=== PATIENT | female | born 1955 | race Caucasian/White ===

== ENCOUNTER 2017-10-06 20:15 | Emergency (ER) | payer MEDICARE, SELFPAY ==
--- NOTE | 2017-10-06 12:32 | EKG12_ITS ---
Test Reason : SYNCOPE Blood Pressure : / mmHG Vent. Rate : 064 BPM Atrial Rate : 064 BPM P-R Int : 170 ms QRS Dur : 080 ms QT Int : 440 ms P-R-T Axes : 053 014 019 degrees QTc Int : 453 ms Normal sinus rhythm Normal ECG Confirmed by LOLA PADRON MD ([id number]), publishing editor ARNALDO HUITRON ([id number]) on 10/11/2017 5:36:17 PM Referred By: CARIN/ALIE Confirmed By:LOLA PADRON MD
--- NOTE | 2017-10-06 20:15 | DT_ITS ---
This patient was seen during an EMR downtime October 02, 2017 - October 09, 2017. This patient may have a combination of paper and electronic documentation or all paper documentation. All documentation is viewable within the e-chart portion of [facility] for each patient visit.
--- NOTE | 2017-10-06 20:57 | RAD_ITS ---
STUDY: X-RAY CHEST REASON FOR EXAM: Female, 62 years old. SYCOPE EPISODE WITH FALL, LOW BACK PAIN TECHNIQUE: Single AP portable view of the chest. COMPARISON: None. FINDINGS: The lungs are clear and expanded. There is no demonstrated pleural abnormality. Normal size heart. Normal mediastinum and maggie. Normal visualized pulmonary arteries. Normal visualized aortic arch and descending thoracic aorta. Normal visualized thoracic spine. Normal visualized ribs, clavicles, and shoulders. There is no demonstrated abnormality of the visualized soft tissue structures of the upper abdomen. RAD/Chest 1 View (Portable) IMPRESSION: Normal x-ray examination of the chest. Electronically Signed: Bernardo Soliz MD at 21:24 EDT , Service support ,
[2017-10-10 01:52] LABS: Amphetamine Urine VISTA NEGATIVE (<1000 ng/mL); Vista UDS pH Range 6
[2017-10-10 01:53] LABS: Barbiturate Urine VISTA NEGATIVE (< 200 ng/mL); Benzodiazepine Urine VISTA POSITIVE (< 200 ng/mL); Cocaine Urine VISTA NEGATIVE (< 300 ng/mL); Ecstacy Urine VISTA NEGATIVE (< 500 ng/mL); Methadone Urine VISTA NEGATIVE (< 300 ng/mL); PCP Urine VISTA NEGATIVE (< 25 ng/mL); THC Urine VISTA POSITIVE (< 50 ng/mL)
[2017-10-10 02:20] LABS: Lactic Acid 1.2 mmol/L (0.4-2.0)
[2017-10-10 02:30] LABS: ALB/GLOB Ratio 1.3 RATIO (0.9-2.4); Albumin, Serum 3.7 g/dL (3.2-5.0); BUN 16 mg/dL (7-18); BUN/Creat Ratio 12.6 RATIO (10-20); Creatinine, Serum 1.27 mg/dL (0.55-1.02); EST Glomerular Filtration Rate 45 mL/min (>60); Est Glom Filt Rate - Afr Amer 55 mL/min (>60); Globulin 2.9 g/dL (2.2-4.2); Glucose 98 mg/dL (74-106); Protein, Total 6.6 g/dL (6.4-8.2)
[2017-10-10 02:31] LABS: AST(SGOT) 18 U/L (15-37); Alanine Aminotransfer ALT/SGPT 15 U/L (13-56); Alkaline Phosphatase 60 U/L (45-117); Anion Gap 6 (5-15); Calcium,Total 8.6 mg/dL (8.5-10.1); Chloride 106 mmol/L (98-107); Lipase 141 U/L (73-393); Potassium 4.9 mmol/L (3.5-5.1); Sodium Level 139 mmol/L (136-145)
[2017-10-10 04:19] LABS: Partial Thromboplast Time 25.8 Seconds (24.1-36.2); Prothrombin Time (Protime)PT. 13.1 SECONDS (11.7-14.9)
[2017-10-10 04:20] LABS: Eosinophils% 3.5 % (0-5); Hematocrit 44.4 % (37-47); Hemoglobin 14.2 g/dl (12.0-15.0); Lymphocyte % 27.7 % (19-41); Mean Corpuscular Hgb 27.6 pg (27.0-32.0); Mean Corpuscular Volume 86.4 fL (81-99); Mean Platelet Vol. 10.7 fl (6.2-12.0); Monocyte% 5.1 % (0-10); Neutrophil % 62.2 % (47-70); POSITIVE COUNT NO; POSITIVE DIFFERENTIAL NO; POSITIVE MORPHOLOGY NO; Platelet Count 204 K/mm3 (150-450); RBC Distribution Width CV 14.9 % (11.6-14.6); RBC Distribution Width SD 47.2 fl (35.1-43.9); Red Blood Count 5.14 M/mm3 (4.2-5.4); White Blood Count 6.9 K/mm3 (4.4-11.0)
[2017-10-10 04:21] LABS: Absolute Lymphocyte Count 1.92 X10^3/ul (0.83-4.51); Absolute Neutrophil Count 4.3 X10^3/uL (2.0-7.7); Basophil% 1.4 % (0-1); Eosinophil# 0.24 X10^3/uL; Lymphocyte # 1.92 X10^3/ul (4.0); Monocyte# 0.35 X10^3/uL; Neutrophil # 4.31 X10^3/uL (2.7-7.7)
== END 2017-10-07 00:20 | disposition home or self-care (01) ==
LOC: ED 10-07 13:23
PROVIDERS: Emergency Provider Emergency Medicine; Family Provider Student in an Organized Health Care Education/Training Program; PCP Student in an Organized Health Care Education/Training Program
DX: R55 Syncope and collapse (principal); M79.7 Fibromyalgia; F32.9 Major depressive disorder, single episode, unspecified; Z79.899 Other long term (current) drug therapy; Z72.0 Tobacco use
CPT/HCPCS: 36415; 71045; 80053; 80307; 80320; 83605; 83690; 84484; 85025; 85610; 85730; 93005; 96360; 96361; 99284; J7030; A4216; G0480

== ENCOUNTER 2018-03-05 17:46 | Emergency (ER) | payer MEDICARE, SELFPAY ==
[2018-03-05 17:47] VITALS: BP 123/86; PULSE 92; RESP 18; TEMP 36.4; O2SAT 96; BMI 31.6
--- NOTE | 2018-03-05 19:08 | US_ITS ---
STUDY: ABDOMINAL ULTRASOUND - RIGHT UPPER QUADRANT REASON FOR VISIT: Female, 63 years old. Right side abdominal pain. TECHNIQUE: Ultrasound evaluation of the right upper quadrant was performed with real-time and static rojas-scale imaging. TECHNICAL QUALITY: Adequate. COMPARISON: None. FINDINGS: Liver: The liver measures 17.3 cm. There is normal echogenicity of the liver. The bile ducts are within normal limits. There is hepatic color flow. The direction of portal flow is hepatopetal. There is no demonstrated mass lesion. Gallbladder: Normal distended gallbladder. The gallbladder wall measures 2 mm. There is a negative sonographic Abdi's sign. There is no pericholecystic fluid. There are no gallstones. Common Bile Duct (C.B.D.): The common bile duct measures 7 mm. Pancreas: There is mild dilation of the pancreatic duct, measuring 4 mm. The visualized pancreas is otherwise unremarkable. The tail is poorly seen. Right Kidney: Normal size of the right kidney. The right kidney measures 11.6 x 3.4 x 3.9 cm. Normal renal cortex. The right cortex measures 1.1 cm. There is no demonstrated renal mass or cyst. There is no right hydronephrosis. US/Gallbladder IMPRESSION: 1. No cholelithiasis or acute cholecystitis. 2. Minimally dilated pancreatic and distal common duct. Electronically Signed: Fay Hutchinson MD at 20:16 EST Tel , Service support ,
[2018-03-05 19:20] LABS: Absolute Lymphocyte Count 2.62 X10^3/ul (0.83-4.51); Absolute Neutrophil Count 2.8 X10^3/uL (2.0-7.7); Basophil# 0.06 X10^3/uL; Eosinophil# 0.18 X10^3/uL; Hematocrit 44.7 % (37-47); Hemoglobin 14.2 g/dl (12.0-15.0); Lymphocyte # 2.62 X10^3/ul (4.0); Lymphocyte % 44.2 % (19-41); Mean Corp Hgb Conc 31.8 g/gl (32-36); Mean Corpuscular Hgb 27.8 pg (27.0-32.0); Mean Corpuscular Volume 87.6 fL (81-99); Mean Platelet Vol. 10.1 fl (6.2-12.0); Monocyte# 0.28 X10^3/uL; Monocyte% 4.7 % (0-10); Neutrophil # 2.78 X10^3/uL (2.7-7.7); Neutrophil % 46.9 % (47-70); Platelet Count 267 K/mm3 (150-450); RBC Distribution Width CV 14.1 % (11.6-14.6); RBC Distribution Width SD 45.2 fl (35.1-43.9); White Blood Count 5.9 K/mm3 (4.4-11.0)
[2018-03-05] MEDS: Ondansetron 4 MG/2 ML Vial IV (19:20)
[2018-03-05] MEDS: Morphine 4 MG/ML Syringe IV (19:20)
[2018-03-05] MEDS: 0.9% Normal Saline 1,000 ML 150 ML IV (19:20)
[2018-03-05 19:21] LABS: POSITIVE COUNT NO; POSITIVE DIFFERENTIAL NO; POSITIVE MORPHOLOGY NO
[2018-03-05 19:50] LABS: AST(SGOT) 20 U/L (15-37); Alanine Aminotransfer ALT/SGPT 20 U/L (13-56); Albumin, Serum 3.8 g/dL (3.2-5.0); Alkaline Phosphatase 63 U/L (45-117); Anion Gap 9 (5-15); BUN 20 mg/dL (7-18); BUN/Creat Ratio 19.4 RATIO (10-20); Bilirubin, Direct 0.12 mg/dL (0.00-0.30); Calcium,Total 8.9 mg/dL (8.5-10.1); Chloride 107 mmol/L (98-107); Creatinine, Serum 1.03 mg/dL (0.55-1.02); EST Glomerular Filtration Rate 58 mL/min (>60); Est Glom Filt Rate - Afr Amer 70 mL/min (>60); Estimated Creatinine Clearance 50.96 ml/min; Globulin 3.6 g/dL (2.2-4.2); Glucose 76 mg/dL (74-106); Lipase 173 U/L (73-393); Potassium 4.4 mmol/L (3.5-5.1); Protein, Total 7.4 g/dL (6.4-8.2); Sodium Level 141 mmol/L (136-145)
[2018-03-05 19:57] VITALS: BP 133/85; PULSE 59; RESP 18; O2SAT 97
--- NOTE | 2018-03-05 21:14 | ED.DCSUM_ITS ---
- ER Visit Summary Date of Service: 03/05/18 Chief Complaint: Abdominal pain History of Present Illness: The patient is a 63 F with a 6-month history of abdominal pain after meals. She does report nausea with intermittent fevers. She is a history of high cholesterol, anxiety, depression, back pain, seizures. Prior surgical history includes appendectomy and hysterectomy. Patient has not seen her family physician about the current complaint. Physical Examination: Vital signs unremarkable. Patient sitting upright in bed no acute distress. She does appear uncomfortable. Head neck examination is unremarkable. Heart is regular rate and rhythm. Lung sounds are clear. Abdomen is soft with tenderness in the right upper quadrant. There is no guarding or rebound. Hypoactive bowel sounds are noted throughout. Test Results: CBC and chemistry studies are unremarkable. LFTs and lipase normal. Right upper quadrant ultrasound shows no cholelithiasis or acute cholecystitis. There is minimally dilated pancreatic and distal common ducts. Emergency Department Course and Treatment: Patient was given morphine, Zofran, and IV fluids. On repeat evaluation she is resting comfortably. Test results are discussed with her. I did advise that although I do not see signs of gallstones, she may still have problems with the function of her gallbladder may require a HIDA scan for further workup. Patient will be referred to Dr. Macedo for follow-up. Treatment Plan: [] Disposition: Discharge Impression: Right upper quadrant abdominal pain This note was generated with [employer] dictation software. It may contain incorrect words, spelling, and punctuation that were not noted in review of the chart prior to signing ED Disposition - Plan for ED Patient: Disposition: Home or Assisted Living Chief Complaint: Abd Pain Instructions: ED Abdominal Pain Unkn Cause Referrals: Juan Lr DO [Primary Care Provider] - Faye Macedo MD [STAFF PHYSICIAN] - As soon as possible
[2018-03-05 21:27] VITALS: BP 111/85; PULSE 62; RESP 16; O2SAT 95
== END 2018-03-05 21:28 | disposition home or self-care (01) ==
PROVIDERS: Emergency Provider Emergency Medicine; Family Provider Student in an Organized Health Care Education/Training Program; PCP Student in an Organized Health Care Education/Training Program
DX: R10.11 Right upper quadrant pain (principal); R11.0 Nausea; R50.9 Fever, unspecified; K86.89 Other specified diseases of pancreas; K83.8 Other specified diseases of biliary tract; E78.00 Pure hypercholesterolemia, unspecified; F41.9 Anxiety disorder, unspecified; F32.9 Major depressive disorder, single episode, unspecified; M54.9 Dorsalgia, unspecified; G40.909 Epilepsy, unspecified, not intractable, without status epilepticus; Z79.899 Other long term (current) drug therapy; Z72.0 Tobacco use
CPT/HCPCS: 76705; 80048; 80076; 83690; 85025; 96361; 96374; 96375; 99283; J7030; J2405

== ENCOUNTER 2020-07-09 17:43 | Outpatient (RCR) | payer MEDICARE, SELFPAY ==
[2020-07-09] MEDS: COVID-19 VACC, MRNA(PFIZER)/PF 30 MCG/0.3 ML SYRINGE IM (16:17)
[2020-07-30] MEDS: COVID-19 VACC, MRNA(PFIZER)/PF 30 MCG/0.3 ML SYRINGE IM (16:01)
== END 2020-10-06 23:59 ==
LOC: IMMUN 17:43
PROVIDERS: PCP Student in an Organized Health Care Education/Training Program; Visit Provider Family Medicine
DX: Z23 Encounter for immunization (principal)
CPT/HCPCS: 0001A; 0002A; 91300

== ENCOUNTER 2021-01-26 23:48 | Emergency (ER) | payer MEDICARE, SELFPAY ==
[2021-01-26 23:49] VITALS: BP 158/92; PULSE 86; RESP 16; TEMP 37.3; O2SAT 96; BMI 32.3
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
[2021-01-27 01:10] VITALS: BP 148/89; PULSE 76; RESP 12; O2SAT 98
== END 2021-01-27 01:11 | disposition home or self-care (01) ==
PROVIDERS: Emergency Provider Emergency Medicine; PCP Student in an Organized Health Care Education/Training Program
DX: S62.231A Other displaced fracture of base of first metacarpal bone, right hand, initial encounter for closed fracture (principal); S60.511A Abrasion of right hand, initial encounter; S80.211A Abrasion, right knee, initial encounter; S80.212A Abrasion, left knee, initial encounter; W22.09XA Striking against other stationary object, initial encounter; Y93.9 Activity, unspecified; Y92.9 Unspecified place or not applicable; I10 Essential (primary) hypertension; G89.29 Other chronic pain; M79.7 Fibromyalgia; M19.90 Unspecified osteoarthritis, unspecified site; Z79.899 Other long term (current) drug therapy; F17.210 Nicotine dependence, cigarettes, uncomplicated
CPT/HCPCS: 29125; 73130; 99283

== ENCOUNTER 2024-08-23 10:10 | Inpatient (IN) | payer MEDICARE, SELFPAY ==
[2024-08-23] VITALS (9 sets, daily range): BP systolic 90–95; BP diastolic 60–65; PULSE 59–91; RESP 12–18; TEMP 36.3–37.1; O2SAT 93–99; BMI 32.3; BMI 31.6
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
[2024-08-23] MEDS: Ondansetron 4 MG/2 ML Vial IV (10:36)
[2024-08-23] MEDS: Morphine 4 MG/ML Syringe IV (10:36)
[2024-08-23] MEDS: 0.9% Normal Saline (1000mL) 1,000 ML 999 ML IV (10:36)
[2024-08-23 10:37] LABS: Absolute Lymphocyte Count 2.06 X10^3/uL (0.83-4.51); Absolute Neutrophil Count 6.4 X10^3/uL (2.0-7.7); Basophil# 0.09 X10^3/uL; Eosinophils% 2.1 % (0-5); Hematocrit 39.9 % (37-47); Hemoglobin 12.4 g/dL (12.0-15.0); Lymphocyte # 2.06 X10^3/ul (0.83-4.51); Lymphocyte % 22.1 % (19-41); Mean Corp Hgb Conc 31.1 g/dL (32-36); Mean Corpuscular Hgb 27.8 pg (27.0-32.0); Mean Corpuscular Volume 89.5 fL (81-99); Mean Platelet Vol. 9.7 fl (6.2-12.0); Monocyte# 0.53 X10^3/uL; Monocyte% 5.7 % (0-10); NRBC Flagged by Analyzer 0 % (0-5); Neutrophil # 6.41 X10^3/uL (2.7-7.7); Neutrophil % 68.6 % (47-70); Platelet Count 287 K/mm3 (150-450); RBC Distribution Width CV 14.5 % (11.6-14.6); RBC Distribution Width SD 47.1 fl (35.1-43.9); Red Blood Count 4.46 M/mm3 (4.2-5.4); White Blood Count 9.3 K/mm3 (4.4-11.0)
--- NOTE | 2024-08-23 10:45 | RAD_ITS ---
PROCEDURE: HIP, UNI W/ PELVIS 2-3 VIEWS 08/23/2024 REASON FOR EXAM: FALL, PAIN TECHNIQUE: Three (3) view of the right hip COMPARISON: No relevant prior FINDINGS: Bones: No fractures or other osseous abnormalities. Joints: No subluxations or dislocations. Soft tissues: Unremarkable. RAD/HIP, UNI W/ Pelvis 2-3 Views IMPRESSION: No acute osseous abnormalities. Reading Location: [facility]
--- NOTE | 2024-08-23 10:45 | RAD_ITS ---
PROCEDURE: KNEE 1 OR 2 VIEWS 08/23/2024 REASON FOR EXAM: FALL, PAIN TECHNIQUE: Two (2) view(s) of the right knee COMPARISON: No relevant prior FINDINGS: Bones: An acute spiral fracture of the distal femoral diaphysis with lateral displacement of the distal fracture fragment by approximately 3.6 cm. Joints: No subluxations or dislocations. Soft tissues: Swelling. RAD/Knee 1 or 2 Views IMPRESSION: Acute spiral fracture of the distal femoral diaphysis with offset of the fractu re fragments detailed above. Reading Location: [facility]
[2024-08-23 10:58] LABS: AST(SGOT) 30 U/L (<=31); Alanine Aminotransfer ALT/SGPT 27 U/L (<=34); Albumin, Serum 3.7 g/dL (3.4-4.8); Alkaline Phosphatase 73 U/L (35-104); Anion Gap 9 (5-15); BUN 26 mg/dL (4-19); BUN/Creat Ratio 21.7 RATIO (10-20); Bilirubin, Direct < 0.08 mg/dL (0.00-0.30); Carbon Dioxide 19.8 mmol/L (21.0-32.0); Chloride 113 mmol/L (98-108); Creatinine, Serum 1.18 mg/dL (0.70-1.20); EST Glomerular Filtration Rate 50 (>60); Estimated Creatinine Clearance 50.08 ml/min (50-250); Globulin 2.7 g/dL (2.2-4.2); Glucose 121 mg/dL (70-99); Potassium 4.9 mmol/L (3.3-5.1); Protein, Total 6.4 g/dL (5.9-8.4); Sodium Level 141 mmol/L (133-145); Total Bilirubin < 0.15 mg/dL (0.00-1.30)
[2024-08-23] MEDS: HYDROmorphone 0.5 MG/0.5 ML SYRINGE IV (11:53)
[2024-08-23] MEDS: oxyCODONE 5 MG Tablet 10 MG PO ×2 (15:52→21:33)
[2024-08-23] MEDS: cycloBENZAPRine HCl 10 MG Tablet PO ×2 (15:52→22:54)
--- NOTE | 2024-08-23 18:11 | HP.PCM.HOS_ITS ---
HPI - General General Date of Admission: 08/23/24 Date of Service: 08/23/24 Chief Complaint: Right knee pain HPI Narrative ALAN CM, is a 69 F who presents to the emergency room at [facility] for evaluation of right knee pain and right hip pain following a fall at home in her kitchen. Patient states she was mopping the floor in her kitchen and slipped and fell, she is not sure how she landed on the floor but was unable to get up and bear weight. She cried out for help but her son who was in an adjacent area did not hear her and she finally was able to crawl to a telephone to call for help. Workup in the emergency room included an x-ray of the right knee and hip, there was no acute pathology noted in the right hip but there was a spiral fracture of the distal right femur noted that was displaced. Labs included CBC which was unremarkable, chemistry panel was remarkable for BUN of 26. Patient's chronic medical problems include hypertension, chronic depression, hypothyroidism, hyperlipidemia, and fibromyalgia. Patient will be admitted to [place] [address], no medications will be continued, she will be seen in consultation by orthopedic surgery, I will obtain a portable chest x-ray due to the fact the patient is a smoker. [facility] Medical History Hypertension Arthritis Chronic low back pain Fibromyalgia Home Medications ?Medication ?Instructions ?Recorded ?Last Taken ?Type lorazepam 1 mg tablet 1 mg PO Q8H PRN Anxiety 11/0 5/18 08/22/24 History albuterol sulfate 90 mcg/actuation 2 puff inhalation Q 4H PRN wheezing 08/23/24 08/22/24 History aerosol inhaler cyclobenzaprine 10 mg tablet 10 mg PO TID PRN muscle s pasm 08/23/24 08/22/24 History duloxetine 20 mg capsule,delayed 20 mg PO DAILY 08/23/24 History release levothyroxine 88 mcg tablet 88 mcg PO DAILY 08/23/24 0 08/22/24 History metoprolol tartrate 50 mg tablet 50 mg PO BID 08/23/24 08/23/24 History Allergy/AdvReac Type Severity Reaction Status Date / Time pregabalin (From Lyrica) Allergy SUICIDAL Verified 08/23/24 10:11 pentazocine lactate (From AdvReac Vomiting Verified 08/23/24 10:11 Celso) Social History Smoking Status: Current every day smoker tobacco type: cigarettes ROS Constitutional Constitutional: Denies anorexia, change in weight, fever(s), night sweats or weakness Eyes Eyes: Denies blurry vision, change in vision, discharge from eye(s) or eye pain Cardiovascular Cardiovascular: Denies chest pain, claudication, edema or palpitations Respiratory/Chest Respiratory/Chest: Denies cough, hemoptysis, shortness of breath at rest or shortness of breath with exertion Gastrointestinal Gastrointestinal: Denies abdominal pain, constipation, diarrhea, hematemesis, hematochezia, melena, nausea or vomiting Genitourinary Genitourinary: Denies dysuria, hematuria, urinary frequency, urinary hesitancy, urinary incontinence or urinary urgency Musculoskeletal Musculoskeletal: Denies back pain, joint pain, joint stiffness, joint swelling, myalgias or neck pain Neurologic Neurologic: Denies abnormal gait, abnormal speech, dizziness, focal weakness, headache(s), loss of vision, numbness, other visual disturbances, paresthesias, syncope or tingling Psychiatric Psychiatric: Denies anxiety, cognitive impairment, depression, irritability, mood swings or suicidal ideation Endocrine Endocrinology: Denies change in body appearance, cold intolerance, excessive sweating, heat intolerance, polydipsia or polyuria Hematologic/Lymphatic Hematologic/Lymphatic: Denies none, anemia, easy bleeding, easy bruising or lymphadenopathy Allergic/Immunologic Allergic/Immunologic: Denies rhinitis, urticaria, eczemia or asthma Vital Signs Vital Signs Vital Signs: 08/23/24 10:12 08/23/24 11:10 08/23/24 12:00 Temperature 97.6 F L Temperature Source Oral Pulse Rate 64 63 59 L Respiratory Rate 18 12 16 Blood Pressure 95/60 93/62 90/62 Blood Pressure Mean 71 72 71 Blood Pressure Source Blood Pressure Position Blood Pressure Location Pulse Ox 94 99 Oxygen Delivery Method Room Air 08/23/24 12:03 08/23/24 12:46 08/23/24 12:56 Temperature 98 F 98.7 F Temperature Source Temporal Pulse Rate 68 69 Respiratory Rate 13 18 18 Blood Pressure 94/61 91/65 Blood Pressure Mean 72 73 Blood Pressure Source Monitor Blood Pressure Position Semi-Fowlers Blood Pressure Location Right Arm Pulse Ox 93 98 Oxygen Delivery Method Room Air Room Air Weight Weight: 86.2 kg Body Mass Index (BMI) 31.6 Physical Exam Const alert, oriented x3 and no apparent distress General Appearance: cooperative, well kempt and well developed Orientation / Consciousness: awake, oriented to person, oriented to place and oriented to time HEENT normocephalic, head/scalp atraumatic, hearing grossly normal bilaterally and moist oral mucous membranes Eyes PERRL, EOMs intact bilaterally and conjunctivae normal Neck supple, no JVD, thyroid normal and no carotid bruits General: trachea midline Resp normal respiratory effort, no retractions, no use of accessory muscles and clear to auscultation bilaterally Auscultation: Negative for rales, rhonchi or wheezes Cardio regular rate, regular rhythm, S1 normal heart sound, S2 normal heart sound, no murmurs, no rub and no gallops GI normal to inspection, nondistended, normoactive bowel sounds, soft to palpation, non-tender and non-distended Extremity Extremity Narrative: Right leg was not examined during the time of this examination Skin no rashes or lesions noted General Skin Exam: no breakdown Neuro oriented x3, CN's II-XII intact bilaterally, no focal motor deficits and no sensory deficits noted Sensorium / Orientation: awake and alert Speech: speech normal Psych affect normal Results Lab / Micro Data 08/23/24 10:27 08/23/24 10:27 Labs: Laboratory Results - last 24 hr 08/23/24 10:27: WBC 9.3, RBC 4.46, Hgb 12.4, Hct 39.9, MCV 89.5, MCH 27.8, MCHC 31.1 L, RDW Std Deviation 47.1 H, RDW Coeff of Promise 14.5, Plt Count 287, MPV 9.7, Immature Gran % (Auto) 0.500, Neut % (Auto) 68.6, Lymph % (Auto) 22.1, [place] % (Auto) 5.7, Eos % (Auto) 2.1, Baso % (Auto) 1.0, Absolute Neuts (auto) 6.4, Absolute Lymphs (auto) 2.06, Nucleated RBC % 0, Sodium 141, Potassium 4.9, C hloride 113 H, Carbon Dioxide 19.8 L, Anion Gap 9, BUN 26 H, Creatinine 1.18, Estim Creat Clear Calc 50.08, Est GFR (MDRD) Non-Af 50 L, BUN/Creatinine Ratio 21.7 H, Glucose 121 H, Calcium 9.0, Total Bilirubin < 0.15, Direct Bilirubin < 0.08, AST 30, ALT 27, Alkaline Phosphatase 73, Total Protein 6.4, Albumin 3.7, Globulin 2.7 Imaging Radiology Impression Hip/Pelvis X-Ray 08/23/24 10:45 IMPRESSION: No acute osseous abnormalities. Reading Location: [facility] Knee X-Ray 08/23/24 10:45 IMPRESSION: Acute spiral fracture of the distal femoral diaphysis with offset of the fracture fragments detailed above. Reading Location: [facility] Assessment & Plan Assessment/Plan (1) Femur fracture, right: PLAN: Plan 1. Distal spiral right femoral [id number] to osteoporosis patient will be admitted to [facility], she will be seen by orthopedic surgery, she will need ORIF tomorrow #2 essential hypertension-patient is on metoprolol, blood pressure will be monitored #3 chronic depression-patient is on Cymbalta #4 hypothyroidism-patient is on Synthroid #5 chronic anxiety-patient is on Ativan Patient appears to be medically stable at this time, again I will obtain an EKG and a chest x-ray Total clinical time spent by myself addressing the patient's medical issues, reviewing all of her data, and collaborating with patient's care team: 75 minutes Charges/Coding Visit Charges Inpatient E&M: 69515 Init Hosp L3
[2024-08-23] MEDS: Gabapentin 300 MG Capsule 600 MG PO (18:18)
--- NOTE | 2024-08-23 18:40 | RAD_ITS ---
EXAM: XR Chest, 1 View CLINICAL INDICATION: PREOP CHEST X-RAY TECHNIQUE: Frontal view of the chest. COMPARISON: No relevant prior studies available. FINDINGS: LUNGS AND PLEURAL SPACES: Unremarkable. No consolidation. No pneumothorax. HEART: Unremarkable. No cardiomegaly. MEDIASTINUM: Unremarkable. Normal mediastinal contour. BONES/JOINTS: Unremarkable. No acute fracture. RAD/Chest 1 View (Portable) IMPRESSION: No acute cardiopulmonary process. Reading Location: [id number]
[2024-08-23] MEDS: Ipratropium/Albuterol Sulfate 3 ML AMPUL.NEB INHALATION (20:25)
[2024-08-23] MEDS: LORazepam 1 MG Tablet PO (21:33)
[2024-08-24] VITALS (15 sets, daily range): BP systolic 95–149; BP diastolic 58–118; PULSE 82–107; RESP 14–16; TEMP 36.4–37.3; O2SAT 90–100; BMI 31.6
[2024-08-24] MEDS: oxyCODONE 5 MG Tablet 10 MG PO ×3 (03:50→22:13)
[2024-08-24] MEDS: Ondansetron 4 MG/2 ML Vial IV (03:50)
[2024-08-24] MEDS: 0.9% Saline Lock 10 ML Syringe IV (03:50)
[2024-08-24 04:24] LABS: Absolute Lymphocyte Count 1.99 X10^3/uL (0.83-4.51); Absolute Neutrophil Count 5.9 X10^3/uL (2.0-7.7); Basophil# 0.04 X10^3/uL; Basophil% 0.5 % (0-1); Eosinophil# 0.14 X10^3/uL; Eosinophils% 1.6 % (0-5); Hematocrit 32.6 % (37-47); Hemoglobin 10.3 g/dL (12.0-15.0); Lymphocyte # 1.99 X10^3/ul (0.83-4.51); Lymphocyte % 22.7 % (19-41); Mean Corp Hgb Conc 31.6 g/dL (32-36); Mean Corpuscular Hgb 28.1 pg (27.0-32.0); Mean Corpuscular Volume 88.8 fL (81-99); Mean Platelet Vol. 9.7 fl (6.2-12.0); Monocyte# 0.73 X10^3/uL; Monocyte% 8.3 % (0-10); NRBC Flagged by Analyzer 0 % (0-5); Neutrophil # 5.85 X10^3/uL (2.7-7.7); Neutrophil % 66.6 % (47-70); Platelet Count 238 K/mm3 (150-450); RBC Distribution Width CV 14.6 % (11.6-14.6); Red Blood Count 3.67 M/mm3 (4.2-5.4); White Blood Count 8.8 K/mm3 (4.4-11.0)
[2024-08-24 04:50] LABS: Partial Thromboplast Time 22.5 Seconds (24.1-36.2)
[2024-08-24 05:32] LABS: ALB/GLOB Ratio 1.4 RATIO (0.9-2.4); AST(SGOT) 94 U/L (<=31); Alanine Aminotransfer ALT/SGPT 93 U/L (<=34); Albumin, Serum 3.4 g/dL (3.4-4.8); Alkaline Phosphatase 75 U/L (35-104); Anion Gap 9 (5-15); BUN 22 mg/dL (4-19); BUN/Creat Ratio 20.2 RATIO (10-20); Calcium,Total 8.4 mg/dL (7.6-11.0); Chloride 108 mmol/L (98-108); EST Glomerular Filtration Rate 55 (>60); Estimated Creatinine Clearance 53.07 ml/min (50-250); Globulin 2.4 g/dL (2.2-4.2); Glucose 98 mg/dL (70-99); Potassium 4.2 mmol/L (3.3-5.1); Protein, Total 5.7 g/dL (5.9-8.4); Sodium Level 136 mmol/L (133-145)
--- NOTE | 2024-08-24 06:56 | CON.PCM.OR_ITS ---
HPI Consult Data Date of Consult: 08/24/24 HPI Narrative Reason for Consultation: Right thigh pain HPI Narrative: ALAN CM, is a 69 F smoker who presents with right thigh pain. Patient with mopping her kitchen when she went to step out of her kitchen which is on the 1 step different level in the house she suddenly fell. She denies any dizziness or lightheadedness prior to the fall, with injury in a mechanical fall/slip and fall. The patient had severe 10 out of 10 pain. Her son was able to help her call the ambulance and they brought her to the emergency department she was found to have a distal femoral shaft fracture on radiographs. Patient reports that pain is located in her thigh. Worse with motion better with immobilization and pain medication. No numbness or tingling distally. Denies history of significant hip or knee pain. Does live at home by herself. Does not use cane or walker on a consistent basis. [facility] Medical History Anxiety and depression Osteoporosis Smoker Bone spur of foot Hypertension Arthritis Chronic low back pain Fibromyalgia Home Medications ?Medication ?Instructions ?Recorded ?Last Taken ?Type lorazepam 1 mg tablet 1 mg PO Q8H PRN Anxiety 11/0 5/18 08/22/24 History albuterol sulfate 90 mcg/actuation 2 puff inhalation Q 4H PRN wheezing 08/23/24 08/22/24 History aerosol inhaler cyclobenzaprine 10 mg tablet 10 mg PO TID PRN muscle s pasm 08/23/24 08/22/24 History duloxetine 20 mg capsule,delayed 20 mg PO DAILY 08/23/24 History release levothyroxine 88 mcg tablet 88 mcg PO DAILY 08/23/24 0 08/22/24 History metoprolol tartrate 50 mg tablet 50 mg PO BID 08/23/24 08/23/24 History Allergy/AdvReac Type Severity Reaction Status Date / Time pregabalin (From Lyrica) Allergy SUICIDAL Verified 08/23/24 10:11 pentazocine lactate (From AdvReac Vomiting Verified 08/23/24 10:11 Celso) no significant family history Surgical History History of carpal tunnel repair History of hysterectomy Social History Smoking Status: Current every day smoker tobacco type: cigarettes ROS Constitutional Constitutional: Reports systems reviewed and no addt'l complaints, except as documented Eyes Eyes: Reports systems reviewed and no addt'l complaints, except as documented ENT HEENT: Reports systems reviewed and no addt'l complaints, except as documented Cardiovascular Cardiovascular: Reports systems reviewed and no addt'l complaints, except as documented Respiratory/Chest Respiratory/Chest: Reports systems reviewed and no addt'l complaints, except as documented Gastrointestinal Gastrointestinal: Reports systems reviewed and no addt'l complaints, except as documented Genitourinary Genitourinary: Reports systems reviewed and no addt'l complaints, except as documented Musculoskeletal Musculoskeletal: Reports systems reviewed and no addt'l complaints, except as documented Integumentary Integumentary: Reports systems reviewed and no addt'l complaints, except as documented Neurologic Neurologic: Reports systems reviewed and no addt'l complaints, except as documented Psychiatric Psychiatric: Reports systems reviewed and no addt'l complaints, except as documented Vital Signs Vital Signs Vital Signs: 08/23/24 10:12 08/23/24 11:10 08/23/24 12:00 Temperature 97.6 F L Temperature Source Oral Pulse Rate 64 63 59 L Respiratory Rate 18 12 16 Respiratory Pattern Blood Pressure 95/60 93/62 90/62 Blood Pressure Mean 71 72 71 Blood Pressure Source Blood Pressure Position Blood Pressure Location Pulse Ox 94 99 Oxygen Delivery Method Room Air 08/23/24 12:03 08/23/24 12:46 08/23/24 12:56 Temperature 98 F 98.7 F Temperature Source Temporal Pulse Rate 68 69 Respiratory Rate 13 18 18 Respiratory Pattern Blood Pressure 94/61 91/65 Blood Pressure Mean 72 73 Blood Pressure Source Monitor Blood Pressure Position Semi-Fowlers Blood Pressure Location Right Arm Pulse Ox 93 98 Oxygen Delivery Method Room Air Room Air 08/23/24 18:22 08/23/24 20:25 08/23/24 20:25 Temperature Temperature Source Pulse Rate 80 Respiratory Rate 18 16 Respiratory Pattern Normal Blood Pressure Blood Pressure Mean Blood Pressure Source Blood Pressure Position Blood Pressure Location Pulse Ox 94 Oxygen Delivery Method Room Air Room Air 08/23/24 21:57 08/24/24 04:05 Temperature 97.4 F L 98.0 F Temperature Source Oral Temporal Pulse Rate 91 92 Respiratory Rate 16 14 Respiratory Pattern Blood Pressure 94/63 95/60 Blood Pressure Mean 73 71 Blood Pressure Source Monitor Monitor Blood Pressure Position Semi-Fowlers Semi-Fowlers Blood Pressure Location Right Arm Right Arm Pulse Ox 96 94 Oxygen Delivery Method Room Air Room Air Weight Weight: 190 lb 0.615 oz Body Mass Index (BMI) 31.6 Physical Exam Const alert and oriented x3 General Appearance: cooperative and well developed HEENT normocephalic Eyes PERRL Neck no JVD Resp normal respiratory effort Cardio Cardio Narrative: Regular pulse rate GI non-distended Extremity Extremity Narrative: Right lower extremity: Skin clean, dry, and intact. Swelling of the thigh however soft and supple. Limb is shortened and externally rotated Motor is intact dorsiflexion, EHL and plantar flexion. Sensation is intact to light touch saphenous, leeann,l superficial peroneal, deep peroneal and tibial distributions. Calves are soft and supple. Skin no rashes or lesions noted Neuro moves all extremities Psych affect normal Medical Records Data Attestation: I reviewed the patient's medical records Lab / Micro Data Attestation: I reviewed the patient's lab results. 08/24/24 03:21 08/24/24 03:21 Labs: Laboratory Results - last 24 hr 08/23/24 10:27: WBC 9.3, RBC 4.46, Hgb 12.4, Hct 39.9, MCV 89.5, MCH 27.8, MCHC 31.1 L, RDW Std Deviation 47.1 H, RDW Coeff of Promise 14.5, Plt Count 287, MPV 9.7, Immature Gran % (Auto) 0.500, Neut % (Auto) 68.6, Lymph % (Auto) 22.1, [place] % (Auto) 5.7, Eos % (Auto) 2.1, Baso % (Auto) 1.0, Absolute Neuts (auto) 6.4, Absolute Lymphs (auto) 2.06, Nucleated RBC % 0, Sodium 141, Potassium 4.9, C hloride 113 H, Carbon Dioxide 19.8 L, Anion Gap 9, BUN 26 H, Creatinine 1.18, Estim Creat Clear Calc 50.08, Est GFR (MDRD) Non-Af 50 L, BUN/Creatinine Ratio 21.7 H, Glucose 121 H, Calcium 9.0, Total Bilirubin < 0.15, Direct Bilirubin < 0.08, AST 30, ALT 27, Alkaline Phosphatase 73, Total Protein 6.4, Albumin 3.7, Globulin 2.7 08/24/24 03:21: WBC 8.8, RBC 3.67 L, Hgb 10.3 L, Hct 32.6 L, MCV 88.8, MCH 28.1, MCHC 31.6 L, RDW Std Deviation 47.0 H, RDW Coeff of Promise 14.6, Plt Count 238, MPV 9.7, Immature Gran % (Auto) 0.300, Neut % (Auto) 66.6, Lymph % (Auto) 22.7, [place] % (Auto) 8.3, Eos % (Auto) 1.6, Baso % (Auto) 0.5, Absolute Neuts (auto) 5.9, Absolute Lymphs (auto) 1.99, Nucleated RBC % 0, Sodium 136, Potassium 4.2, Chloride 108, Carbon Dioxide 19.0 L, Anion Gap 9, BUN 22 H, Creatinine 1.10, Estim Creat Clear Calc 53.07, Est GFR (MDRD) Non-Af 55 L, BUN/Creatinine Ratio 20.2 H, Glucose 98, Calcium 8.4, Total Bilirubin 0.20, AST 94 H, ALT 93 H, Alkaline Phosphatase 75, Total Protein 5.7 L, Albumin 3.4, Globulin 2.4, Albumin/Globulin Ratio 1.4 08/24/24 04:13: APTT 22.5 L Imaging Radiology Impression Hip/Pelvis X-Ray 08/23/24 10:45 IMPRESSION: No acute osseous abnormalities. [facility] 08/23/24 10:45 IMPRESSION: Acute spiral fracture of the distal femoral diaphysis with offset of the fracture fragments detailed above. [facility] Chest X-Ray 08/23/24 18:40 IMPRESSION: No acute cardiopulmonary process. Reading Location: [id number] Assessment & Plan Assessment/Plan (1) Fracture of distal end of right femur: PLAN: Manage history of the disease process and treatment options were discussed the patient. Operative and nonoperative interventions were discussed nonoperative intervention was not recommended. We discussed plate and screw fixation versus retrograde nail fixation. Baseline will remove the retrograde nail in the likely need to open the fracture site for assistance with reduction of the fracture. We discussed risk of surgery include but were not limited to blood loss, DVT, PE, neurovascular damage, infection, the risk of anesthesia including loss of life. We discussed fracture nonunion, malunion and hardware failure also associated complications. We discussed potential for intraoperative fractures as well. Ultimately, patient was able to demonstrate understanding of the treatment plan and agreeable to move forward in the above mentioned fashion. I discussed the need for postoperative VTE prophylaxis as well as weightbearing restrictions postoperatively in relation to the site and nature of the fracture. Patient demonstrates an understanding of this treatment plan and does wish to proceed to move forward today. She also has a history of osteoporosis we discussed this may result greater risk of screw cut out. Antibiotics on-call to the operating room. Patient is currently NPO. Patient is cleared for surgery. [facility] Office:
--- NOTE | 2024-08-24 07:21 | RAD_ITS ---
EXAM: XR Right Femur, 2 Views CLINICAL INDICATION: FEMUR RODDING TECHNIQUE: Frontal and lateral views of the right femur. COMPARISON: No relevant prior studies available. FINDINGS: BONES/JOINTS: Unremarkable. No acute fracture. No dislocation. SOFT TISSUES: Unremarkable. OTHER FINDINGS: 13 spot images were obtained. Total fluoroscopy time was 130.1 seconds. Total radiation dose was 22.23 mGy. RAD/Femur Min 2 Views IMPRESSION: Fluoroscopic guided images used intraoperatively. Please refer to the operativ e note for further details. Reading Location: [id number]
--- NOTE | 2024-08-24 07:33 | PCM.PRE.AN2 ---
ASA Classification* ASA Classification ASA Classification: 2 and E Assessment & Plan Anesthesia* Anesthesia Assessment Anesthesia Assessment: Discussed sedation and/or anesthesia options, risks, benefits, and alternatives with patient/parents/legal guardian/POA. Questions invited. The patient/parents/legal guardian/POA seems to understand and agrees to proceed with anesthesia plan. Reviewed the physical assessment, medical history, allergy history and patient home medications list prior to surgery/procedure/anesthetic and documented any changes. Performed airway and anesthesia risk assessments. Anesthesia Type Anesthesia Type: General Anesthesia Focused Assessment* Temperature: 98.0 F Pulse Rate: 92 Blood Pressure: 95/60 Respiratory Rate: 14 Pulse Ox: 94 Airway Assessment Mouth opens: >3 cm Mallampati Score: II Focused Labs Anesthesia Preop lab: CBC WBC 8.8 K/mm3 (4.4-11.0) 08/24/24 03:21 08/24/24 RBC 3.67 M/mm3 (4.2-5.4) L 08/24/24 03:21 08/24/24 Hgb 10.3 g/dL (12.0-15.0) L 08/24/24 03:21 08/24/24 Hct 32.6 % (37-47) L 08/24/24 03:21 08/24/24 Plt Count 238 K/mm3 (150-450) 08/24/24 03:21 08/24/24 CHEMISTRY Potassium 4.2 mmol/L (3.3-5.1) 08/24/24 03:21 08/24/24 Sodium 136 mmol/L (133-145) 08/24/24 03:21 08/24/24 BUN 22 mg/dL (4-19) H 08/24/24 03:21 08/24/24 Creatinine 1.10 mg/dL (0.70-1.20) 08/24/24 03:21 08/24/24 Glucose 98 mg/dL (70-99) 08/24/24 03:21 08/24/24 COAG PT 13.1 SECONDS (11.7-14.9) 10/06/17 23:59 10/06/17 Pre-Assessment Diagnosis/Proposed Procedure Planned Operative Procedure(s): TORI crawford Anesthesia History Anesthesia History - game trapper: Anesthesia History - game trapper Hx Hospitalization Any Problems With Anesthesia No 08/23/24 23:10 Cholinesterase deficiency No 08/23/24 23:10 You/Your Family Experience No 08/23/24 23:10 fever (hyperthermia) with Relationship Recent Exposure to Contagious No 08/23/24 23:10 Disease Does patient have nerve No 08/23/24 23:10 stimulator Patient instructed to have device shut off --Does patient have Pacemaker No 08/24/24 04:13 or ICD? When Was Last Pacemaker Check QUESTION #4 FULL TEXT: You/Your Family Experience fever (hyperthermia) with Anesthesia Last Oral Intake Last Oral intake: Last Oral Intake NPO since 00:00 08/24/24 04:13 Meds taken in AM with sips of water? Meds patient instructed to take am of surgery PONV PONV - game trapper: PONV - game trapper Female HX of Motion Sickness HX of N/V After Surgery Non-Smoker Duration of Surgery greater than 60 minutes Number of Risk Factors PONV Score Height & Weight Height & Weight: Anesthesia: Height & Weight Height 5 ft 5 in 08/24/24 04:13 Weight: 86.2 kg 08/24/24 04:13 Body Mass Index (BMI) 31.6 08/24/24 04:13 Respiratory Assessment Respiratory Assessment - game trapper: Respiratory Tract Infection Hx - game trapper Hx Respiratory Tract Infection No 08/23/24 23:10 STOP Sleep Apnea STOP Sleep Apnea - game trapper: STOP Sleep Apnea - game trapper Hx Hypertension No 08/23/24 12:46 Hx Sleep Apnea No 08/23/24 12:46 CPAP BIPAP Do you snore loudly (louder No 08/23/24 12:46 than talking or can be heard Do you often feel tired/ No 08/23/24 12:46 fatigued/ sleepy during daytime? Has anyone observed you stop No 08/23/24 12:46 breathing during sleep? STOP Results Negative 08/23/24 12:46 QUESTION #5 FULL TEXT : Do you snore loudly (louder than talking or can be heard through closed doors)? Tobacco Use History Tobacco Use History - game trapper: Tobacco Use History - game trapper Tobacco Use Smoking Status Current every day smoker 08/23/24 12:46 Hx Tobacco Use Yes 08/23/24 12:46 Years Smoking Packs Smoked per Day Smoking Cessation Date was within the last 15 years Hx Smoking Cessation Date Hx Smoking Cessation Counseling Hematologic Medial History Hematologic Hx - game trapper: Hematologic Medical Hx - waste specialist Hx of Blood Transfusion No 08/23/24 12:46 Hx of Transfusion in last 3 No 08/23/24 12:46 Months Date of Last Transfusion (if within last 3 months) Ever experience any problems No 08/23/24 12:46 with transfusion(s)? Specify any problems Hx of Preganancy in last 3 No 08/23/24 12:46 Months Nurse Filling Out Transfusion [id number] 08/23/24 12:46 & Questions: Date: 08/23/24 08/23/24 12:46 Time: 13:18 08/23/24 12:46 Patient unable to answer at this time (ie. confused, unrespo /Reproduction History /Reproductive History - game trapper: /Reproductive Hx- game trapper Hx Now No 08/23/24 23:10 Gestational Age (in weeks): EDC: Hx Hx Para Hx Section SAB No 08/23/24 23:10 Active Medications Active Medications: Current Medications Generic Name Dose Route Start Last Admin Trade Name Freq PRN Reason Stop Dose Admin Albuterol/Ipratropium 3 ml 08/23/24 18:45 08/23/24 20:25 Ipratropium/Albuterol Sulfate 3 Ml Ampul.Neb INHALATION 3 ml Q6HWA.RT ISIAH Administration Atorvastatin Calcium 40 mg 08/23/24 22:00 08/23/24 21:34 Atorvastatin Calcium 40 Mg Tablet PO Not Given QHS ISIAH Calcium/Vitamin D 1 tablet 08/24/24 08:00 Calcium Carb/Vitamin D 1 Tablet Tablet PO BIDCM ISIAH Cyclobenzaprine HCl 10 mg 08/23/24 13:01 08/23/24 22:54 Cyclobenzaprine Hcl 10 Mg Tablet PO 10 mg TID PRN Administration muscle spasm Duloxetine HCl 20 mg 08/24/24 10:00 Duloxetine Hcl 20 Mg Capsule PO DAILY ISIAH Gabapentin 600 mg 08/23/24 17:00 08/23/24 18:18 Gabapentin 300 Mg Capsule PO 600 mg TIDCM ISIAH Administration Heparin Sodium (Porcine) 5,000 unit 08/23/24 22:00 08/23/24 19:31 Heparin Injection (Vial) 5,000 Unit/Ml Vial SC Not Given Q12 ISIAH Hydromorphone HCl 0.5 - 1 mg 08/23/24 13:01 Hydromorphone 1 Mg/Ml Syringe IV Q3H PRN PRN Pain Score 6-10 Hydromorphone HCl 0.5 - 1 mg 08/23/24 13:05 Hydromorphone 0.5 Mg/0.5 Ml Syringe IV Q3H PRN PRN Pain Score 6-10 Levothyroxine Sodium 88 mcg 08/24/24 06:00 08/24/24 04:18 Levothyroxine 88 Mcg Tablet PO Not Given DAILY@0600 ISIAH Lorazepam 1 mg 08/23/24 13:01 08/23/24 21:33 Lorazepam 1 Mg Tablet PO 1 mg Q8H PRN Administration Anxiety Metoprolol Tartrate 50 mg 08/23/24 22:00 08/23/24 21:34 Metoprolol Tartrate 50 Mg Tablet PO Not Given BID [facility] Protocol Nicotine 14 mg 08/24/24 10:00 Nicotine 14 Mg Patch TD DAILY [facility] Ondansetron HCl 4 mg 08/23/24 13:01 08/24/24 03:50 Ondansetron 4 Mg/2 Ml Vial IV 4 mg Q8H PRN PRN Administration NAUSEA/VOMITING Oxycodone HCl 10 mg 08/23/24 13:01 08/24/24 03:50 Oxycodone 5 Mg Tablet PO 10 mg Q4H PRN PRN Administration Pain Score 4-10 Sodium Chloride 10 - 40 ml 08/23/24 13:19 08/24/24 03:50 0.9% Saline Lock 10 Ml Syringe IV 10 ml UD PRN Administration SALINE FLUSH PFSH Medical History Anxiety and depression Osteoporosis Smoker Bone spur of foot Hypertension Arthritis Chronic low back pain Fibromyalgia Home Medications ?Medication ?Instructions ?Recorded ?Last Taken ?Type lorazepam 1 mg tablet 1 mg PO Q8H PRN Anxiety 03/05/18 08/22/24 History albuterol sulfate 90 mcg/actuation 2 puff inhalation Q4H PRN wheezing 08/23/24 08/22/24 History aerosol inhaler cyclobenzaprine 10 mg tablet 10 mg PO TID PRN muscle spasm 08/23/24 08/22/24 History duloxetine 20 mg capsule,delayed 20 mg PO DAILY 08/23/24 08/23/24 History release levothyroxine 88 mcg tablet 88 mcg PO DAILY 08/23/24 08/22/24 History metoprolol tartrate 50 mg tablet 50 mg PO BID 08/23/24 08/23/24 History Allergy/AdvReac Type Severity Reaction Status Date / Time pregabalin (From Lyrica) Allergy SUICIDAL Verified 08/23/24 10:11 pentazocine lactate (From AdvReac Vomiting Verified 08/23/24 10:11 Celso) Family History no significant family his Surgical History History of carpal tunnel repair History of hysterectomy Social History Smoking Status: Current every day smoker tobacco type: cigarettes Review of Systems (Anesthesia) ROS Narrative System reviewed and no additional complaints, except as documented.
[2024-08-24] MEDS: Cefazolin 2 GM in Syringe IV (08:07)
--- NOTE | 2024-08-24 09:46 | OP.PCM_ITS ---
Operative Report (Standard) Operative Information Date of Procedure: 08/24/24 Pre-Operative Diagnosis: Right distal femoral shaft fracture Post-Operative Diagnosis: Right distal femoral shaft fracture Surgery/Procedure Performed: Open reduction, retrograde intramedullary nail right femur information systems audit manager: Yes Steak Tenderizer Machine: Brody Morgan Tasks completed by cutter first: Opening, Closing and Other (Fracture reduction, fracture traction. Soft tissue protection during reaming and insertion of implants.) Additional web press operator assistant?: No Type of Anesthesia: General RN Documented Start/Stop Times: Operation Date: 08/24/24 07:55 Case Time Anesthesia Start 08/24/24 07:33 Into Room 08/24/24 07:33 Procedure Start 08/24/24 08:23 Procedure End 08/24/24 09:45 Anesthesia End 08/24/24 09:57 Out of Room 08/24/24 09:57 Procedure Start Time: 08:23 Procedure Stop Time: 09:45 Select all DRAINS/GRAFTS/IMPLANTS that apply: Prosthetic device Prosthetic device details: Sia 380 mm x 11 mm T2 retrograde femoral nail 3 distal dynamic interlocking screws, 1 proximal interlocking screw. Special Medications: Ancef Estimated Blood Loss: 300 mL Fluids Replaced: Crystalloid Specimen collected: No Description of surgery: On the date of the procedure patient was seen and evaluated on the floor and consultation was performed. Risk benefits of the procedure were discussed with patient. Patient was then brought down to the preoperative area where the right thigh was marked for surgical intervention. Patient was then wheeled back to the operating room where anesthesia assumed chilled C-spine airway. Anesthesia administered anesthetic while patient was on the hospital bed. After patient was prepped anesthetized they were transferred to the table. Patient was appropriate position with a bump underneath her hip in appropriate blankets underneath the thigh. Once we did this we attempted close reduction based on the shortening of the fracture and the long oblique nature of the fracture and adequate close reduction was not significantly obtainable. Based on this we knew were going to have to open the fracture site. Patient was then prepped in a sterile fashion while the surgeon scrubbed. Upon reentering the room timeout was called. Everyone agreed upon the side, the site COVID the procedure to be performed, patient's identity and antibiotics given. Once this was completed and the fluoroscopic machine was draped live x-ray was used to verify the position of the fracture and a lateral incision was made at the fracture site. Incision was taken down through skin. Bovie dissection to maintain hemostasis was taken down to the fascia. Fascia was then incised with a 10 blade scalpel. We then lifted the vastus lateralis anteriorly and off the intermuscular septum posteriorly and expose the fracture. Once the fracture was exposed clamp was placed on the fracture to reduce the fracture. Once were happy with the fracture reduction we then moved onto the nail fixation. Patella was palpated and a lateral parapatellar arthrotomy was performed 1 from the proximal pole the patella to the tibial tubercle. Patella could be retracted out of the way. Live x-ray was used to verify the starting point of the pin. Pin was placed under power. Once performed the opening reamer was used to open up the distal femur. We then sequentially reamed the femur over a guidewire which was placed past the fracture and used to measure appropriate length the nail. The nail was measured at 380 mm. We then sequentially reamed up to 12.5 mm with good chatter in the diaphysis. Once this was completed the 11 mm nail was open and placed on the aiming arm. It was in placed over the guidewire up the femoral canal. Once we verified appropriate depth of the nail the guidewire was removed. 3 screws were placed percutaneously distally with guidance of fluoroscopy. Once this was done fracture reduction was again checked and maintained. We then directed our attention proximally where perfect capitan grande band technique was used in order to place 1 anterior to posterior screw. We had good fixation in the diaphysis which then give us to good points of fixation proximal to the fracture. Once this was completed lab x-rays used to verify placement of the nail both proximally and di stally. We then removed the clamp and the fracture remained stable at this time. Wound was skyla irrigated out normal saline. Arthrotomy was copiously irrigated out normal saline. #1 strata fix was used to close the arthrotomy. #1 strata fix was used to close the fascia. Old strata fix was used to close the deep fatty layer on the lateral incision. 2-0 Vicryl was used to close the subcutaneous layer of both incisions and final skin incision was done with usman. Sterile silver dressing was placed over all wounds. Percutaneous wounds were also closed with usman and covered with appropriate dressings. Once this was completed patient was awakened by anesthesia transferred to the hospital bed transferred to the PACU for recovery in stable condition. Postop plan for this patient: Patient will be on limited weightbearing status toe-touch weightbearing for 2 weeks and 50% partial weightbearing for 4 weeks. Goal will be to advance to weightbearing as tolerated if appropriate fracture healing is occurred by week 6. This can be altered based on healing process. Based on patient's restrictions on weightbearing and presumed limited mobility will place her on Xarelto for 2 weeks postoperatively followed by 2 weeks of aspirin 81 mg twice a day for DVT prophylaxis. Patient's son was contacted after surgery by phone as he was not at the hospital at the time of the surgery. My physician web press operator assistant was vital throughout this procedure there was not a second set of skilled hands available. His contribution is noted in the above portion of the operative report for assistance Surgical Findings: Stable will reduce fracture. Good diaphyseal nail fixation. Complications Complications: No
--- NOTE | 2024-08-24 10:05 | PCM.POST.ANE ---
Anesthesia: Postop Eval I Current Vital Signs Temperature: 98.1 F Pulse Rate: 90 Blood Pressure: 118/100 Respiratory Rate: 16 Pulse Ox: 94 Assessment Airway patent: Yes Spontaneous unlabored respirations: Yes nausea: No Vomiting: No Anesthesia Complication: No Fluid Hydration Crystalloid volume administer (ml): 550 Total IV fluid infused: 550 Progress Note Anesthesia document: Postop Eval 1 completed: Yes
--- NOTE | 2024-08-24 10:07 | PCM.POSTANE2 ---
Anesthesia Postop Eval I Sum Postop Eval Completion status Anesthesia document: Postop Eval 1 completed: Yes Anesthesia Postop Eval I Summary Anesthesia Postop Eval I Summary: Anesthesia Postop Eval I: Assessment Summary Airway patent Yes 08/24/24 10:05 Spontaneous unlabored Yes 08/24/24 10:05 respirations Mental status nausea No 08/24/24 10:05 Vomiting No 08/24/24 10:05 Anesthesia Postop Eval I: Fluid Summary Crystalloid volume administer 550 08/24/24 10:05 (ml) Colloids volume administered ( ml) Blood Product volume administered (ml) Total IV fluid infused 550 08/24/24 10:05 Anesthesia Postop Eval I: Summary Notes Anesthesia Complication No 08/24/24 10:05 Anesthesia Complication Comment: Post-operative progress note Anesthesia: Postop Eval II Evaluation Mental status: Awake and Calm Pain Level: 4 nausea: No Vomiting: No
--- NOTE | 2024-08-24 11:45 | CASEMGMT ---
RN CM Face to Face with patient for initial transition planning/care coordination assessment. RN CM introduced self and role at [facility]. Patient lying in bed, alert and oriented. Patient willing to participate in assessment and is able to answer all questions appropriately. Care providers, pharmacy, and demographics verified. Strata:1 PCP: Be Specialists: none Preferred Pharmacy: [facility] Insurance: [place] ? Prescription Benefit: yes Living Will/HPOA: yes, daughter Ramiro Dumont LNOK: daughter, son Living Arrangements: Patient lives in a first floor apartment with no steps, brother lives above patient. Patient was independent prior to hospitalization Transportation: self, friends DME/HHC: Patient denies DME in the home. No previous HHC or SNF Patient wishes to discharge home but willing to go to SNF if needed, will monitor progress with therapy. Patient states she has no further needs or concerns at this time. CM to follow for discharge planning needs that may arise. Disposition Plan: TBD, anticipate SNF vs HHC pending progress with therapy. Gavi MCKEON, RN, CM
[2024-08-24] MEDS: HYDROmorphone 1 MG/ML Syringe IV ×2 (11:48→16:17)
[2024-08-24] MEDS: Gabapentin 300 MG Capsule 600 MG PO ×2 (11:55→16:16)
[2024-08-24] MEDS: DULoxetine Hcl 20 MG Capsule PO (11:56)
--- NOTE | 2024-08-24 12:26 | PN.HOSP_ITS ---
Reason for Visit Reason for Visit: Diagnoses Unspecified fracture of lower end of right femur, initial encounter for closed fracture (08/23/24) Unspecified fracture of right femur, initial encounter for closed fracture (08/23/24) Subjective Subjective Patient seen and examined today, she underwent placement of an intramedullary ayde for stabilization of her right distal femur fracture. Patient complains of pain, she was just given 1 mg IV of Dilaudid 10 minutes ago, I gave the nurse another order to give her another half a milligram IV. Patient has no complaints of any shortness of breath or chest pain at this time Objective Data Objective Data Vital Signs: Vital Signs Temp Pulse Resp BP Pulse Ox O2 Del Method O2 Flow Rate 98.9 F 97 14 126/58 H 100 Nasal Cannula 2 08/24/24 12:09 08/24/24 12:09 08/24/24 12:09 08/24/24 12:09 08/24/24 12:09 08/24/24 12:09 08/24/24 12:09 Oxygen Flow Rate (L/min) 2 Oxygen Delivery Method Nasal Cannula Weight: 86.2 kg Body Mass Index (BMI) 31.6 Intake & Output: Intake and Output for Last 24 Hours 08/22/24 08/23/24 08/24/24 23:59 23:59 23:59 Intake Total 1700 / 1700 Output Total 400 / 400 1050 / 1050 Balance 1300 / 1300 -1050 / -1050 Lab / Micro Data 08/24/24 03:21 08/24/24 03:21 Labs: Laboratory Results - last 24 hr 08/24/24 03:21: WBC 8.8, RBC 3.67 L, Hgb 10.3 L, Hct 32.6 L, MCV 88.8, MCH 28.1, MCHC 31.6 L, RDW Std Deviation 47.0 H, RDW Coeff of Promise 14.6, Plt Count 238, MPV 9.7, Immature Gran % (Auto) 0.300, Neut % (Auto) 66.6, Lymph % (Auto) 22.7, Cobb % (Auto) 8.3, Eos % (Auto) 1.6, Baso % (Auto) 0.5, Absolute Neuts (auto) 5.9, Absolute Lymphs (auto) 1.99, Nucleated RBC % 0, Sodium 136, Potassium 4.2, Chloride 108, Carbon Dioxide 19.0 L, Anion Gap 9, BUN 22 H, Creatinine 1.10, Estim Creat Clear Calc 53.07, Est GFR (MDRD) Non-Af 55 L, BUN/Creatinine Ratio 20.2 H, Glucose 98, Calcium 8.4, Total Bilirubin 0.20, AST 94 H, ALT 93 H, Alkaline Phosphatase 75, Total Protein 5.7 L, Albumin 3.4, Globulin 2.4, Albumin/Globulin Ratio 1.4 08/24/24 04:13: APTT 22.5 L Radiography Diagnostic Testing: Radiology Impression Chest X-Ray 08/23/24 18:40 IMPRESSION: No acute cardiopulmonary process. Reading Location: [facility] Femur X-Ray 08/24/24 07:21 IMPRESSION: Fluoroscopic guided images used intraoperatively. Please refer to the operative note for further details. Reading Location: [facility] Physical Exam Narrative alert, oriented x3 and no apparent distress General Appearance: cooperative, well kempt and well developed Orientation / Consciousness: awake, oriented to person, oriented to place and oriented to time HEENT normocephalic, head/scalp atraumatic, hearing grossly normal bilaterally and moist oral mucous membranes Eyes PERRL, EOMs intact bilaterally and conjunctivae normal Neck supple, no JVD, thyroid normal and no carotid bruits General: trachea midline Resp normal respiratory effort, no retractions, no use of accessory muscles and clear to auscultation bilaterally Auscultation: Negative for rales, rhonchi or wheezes Cardio regular rate, regular rhythm, S1 normal heart sound, S2 normal heart sound, no murmurs, no rub and no gallops GI normal to inspection, nondistended, normoactive bowel sounds, soft to palpation, non-tender and non-distended Extremity Extremity Narrative: Right leg was not examined during the time of this examination Skin no rashes or lesions noted General Skin Exam: no breakdown Neuro oriented x3, CN's II-XII intact bilaterally, no focal motor deficits and no sensory deficits noted Sensorium / Orientation: awake and alert Speech: speech normal Psych affect normal Assessment & Plan Assessment/Plan (1) Fracture of distal end of right femur: (2) Femur fracture, right: PLAN: Plan 1. Distal spiral right femoral [id number] to osteoporosis- postop day 0 insertion of intramedullary ayde/ORIF right femur-PT and OT will see the patient #2 essential hypertension-patient is on metoprolol, blood pressure will be monitored #3 chronic depression-patient is on Cymbalta #4 hypothyroidism-patient is on Synthroid #5 chronic anxiety-patient is on Ativan Total clinical time spent by myself addressing the patient's medical issues, reviewing all of her data, and collaborating with patient's care team: 35 minutes Charges/Coding Visit Charges Inpatient E&M: 75977 Subs Hosp L2
[2024-08-24] MEDS: HYDROmorphone 0.5 MG/0.5 ML SYRINGE IV (12:32)
[2024-08-24] MEDS: Ipratropium/Albuterol Sulfate 3 ML AMPUL.NEB INHALATION ×3 (13:25→19:40)
[2024-08-24] MEDS: Calcium Carb/Vitamin D 1 TABLET Tablet PO (16:16)
[2024-08-24] MEDS: Cefazolin 1 GM/50 ML BAG IV (16:19)
[2024-08-24] MEDS: cycloBENZAPRine HCl 10 MG Tablet PO (20:21)
[2024-08-24] MEDS: Metoprolol Tartrate 50 MG Tablet PO (20:21)
[2024-08-24] MEDS: LORazepam 1 MG Tablet PO (22:13)
[2024-08-25] VITALS (10 sets, daily range): BP systolic 103–111; BP diastolic 59–67; PULSE 88–102; RESP 16–18; TEMP 36.7–37.6; O2SAT 91–97
[2024-08-25] MEDS: Cefazolin 1 GM/50 ML BAG IV (00:25)
[2024-08-25] MEDS: 0.9% Saline Lock 10 ML Syringe IV (00:26)
[2024-08-25] MEDS: cycloBENZAPRine HCl 10 MG Tablet PO (03:12)
[2024-08-25] MEDS: oxyCODONE 5 MG Tablet 10 MG PO ×3 (03:12→21:27)
[2024-08-25] MEDS: Rivaroxaban 10 MG Tablet PO (05:32)
[2024-08-25] MEDS: Levothyroxine 88 MCG Tablet PO (05:33)
[2024-08-25] MEDS: Ipratropium/Albuterol Sulfate 3 ML AMPUL.NEB INHALATION ×3 (06:36→19:10)
--- NOTE | 2024-08-25 08:39 | PN.ORTHO_ITS ---
Subjective Subjective 69-year-old female 1 day status post retrograde right femoral nail. Patient doing well overall. Continues to have pain however significantly more comfortable after fixation. Patient does state desire to be discharged directly to home if possible. No significant complaints. No complaints of chest pain shortness of breath. No complaints of calf pain. Does report her hip and knee are painful. Objective Data Objective Data Vital Signs: Vital Signs Temp Pulse Resp BP Pulse Ox O2 Del Method O2 Flow Rate 99.6 F H 100 16 103/59 L 97 Nasal Cannula 2 08/25/24 03:28 08/25/24 06:38 08/25/24 06:38 08/25/24 03:28 08/25/24 03:28 08/25/24 03:28 08/25/24 03:28 Oxygen Flow Rate (L/min) 2 Oxygen Delivery Method Nasal Cannula Weight: 190 lb 0.615 oz Body Mass Index (BMI) 31.6 Patient breathing effortlessly and not wearing nasal cannula while I was in the room. Intake & Output: Intake and Output for Last 24 Hours 08/23/24 08/24/24 08/25/24 23:59 23:59 23:59 Intake Total 1700 / 1700 50 / 50 50 / 50 Output Total 400 / 400 1550 / 1550 650 / 650 Balance 1300 / 1300 -1500 / -1500 -600 / -600 Lab / Micro Data Attestation: I reviewed the patient's lab results. 08/24/24 03:21 08/24/24 03:21 Radiography Diagnostic Testing: Radiology Impression Femur X-Ray 08/24/24 07:21 IMPRESSION: Fluoroscopic guided images used intraoperatively. Please refer to the operative note for further details. Reading Location: [facility] Homelessness:: Shelter Physical Exam Narrative Right lower extremity: Dressing is clean dry and intact Sensations intact to light touch saphenous, sural, superficial peroneal, deep peroneal, and tibial distributions Motors intact EHL, DF, PF calves are soft and supple Const alert, oriented x3 and no apparent distress Resp normal respiratory effort Resp Narrative: Patient not wearing nasal cannula Assessment & Plan Assessment/Plan (1) Fracture of distal end of right femur: PLAN: Postop day 1 right retrograde femoral nail 1. DVT prophylaxis: Xarelto 10 mg daily for 2 weeks followed by baby aspirin twice a day for 2 weeks recommended treatment plan. 2. Therapy: Toe-touch weightbearing right lower extremity, no range of motion or activity restrictions otherwise 3. Pain control: Per primary service would minimize narcotics based on patient's age. 4. Constipation: Should continue on stool softener until regular bowel movements. Patient at risk due to narcotics 5. Nutrition: Continue on Ensure shakes upon discharge for at least 2 weeks until wound adequately healed 6. Disposition: Patient currently stable from orthopedic standpoint. I explained that further disposition will be based on abilities demonstrated with physical therapy and medical and physical needs. Patient will likely need discharge to some rehab or skilled facility if unable to demonstrate appropriate stability and mobility as well as return to ADLs with weightbearing restrictions. Upon discharge patient should have usman removed on postop day 14. Patient should be scheduled to see the orthopedic PA in the office in 2 weeks for x-ray check and wound check. Patient should remain toe-touch weightbearing until advance appropriately by orthopedics. Dressing can be removed on postop day 5 or change as needed prior to that. If clean and dry after postop day 5 continue to shower. DVT prophylaxis as outlined per plan above (this is minimal unless patient requires further treatment). Please call orthopedics with any further questions or concerns. JILLIAN [facility]sor[facility] Office:
[2024-08-25] MEDS: Gabapentin 300 MG Capsule 600 MG PO ×3 (08:53→17:32)
[2024-08-25] MEDS: Calcium Carb/Vitamin D 1 TABLET Tablet PO ×2 (08:54→17:32)
[2024-08-25] MEDS: DULoxetine Hcl 20 MG Capsule PO (08:55)
[2024-08-25] MEDS: Ensure Surgery 237 ML LIQUID PO ×3 (09:08→17:33)
[2024-08-25] MEDS: Metoprolol Tartrate 50 MG Tablet PO ×2 (09:11→21:18)
--- NOTE | 2024-08-25 15:05 | PCM.PN.HOSP ---
Reason for Visit Reason for Visit: Diagnoses Unspecified fracture of lower end of right femur, initial encounter for closed fracture (08/23/24) Unspecified fracture of right femur, initial encounter for closed fracture (08/23/24) Subjective Subjective Patient was seen and examined today, she complains of some surgical pain but otherwise has no complaints. She does not complain of any shortness of breath or chest discomfort. Objective Data Objective Data Vital Signs: Vital Signs Temp Pulse Resp BP Pulse Ox O2 Del Method O2 Flow Rate 98.4 F 102 H 16 109/67 94 Room Air 2 08/25/24 09:22 08/25/24 13:01 08/25/24 13:01 08/25/24 09:22 08/25/24 09:22 08/25/24 09:24 08/25/24 03:28 Oxygen Flow Rate (L/min) 2 Oxygen Delivery Method Room Air Weight: 86.2 kg Body Mass Index (BMI) 31.6 Intake & Output: Intake and Output for Last 24 Hours 08/23/24 08/24/24 08/25/24 23:59 23:59 23:59 Intake Total 1700 / 1700 50 / 50 50 / 50 Output Total 400 / 400 1550 / 1550 650 / 650 Balance 1300 / 1300 -1500 / -1500 -600 / -600 Lab / Micro Data 08/24/24 03:21 08/24/24 03:21 Social Homelessness:: Sheltered Physical Exam Narrative alert, oriented x3 and no apparent distress General Appearance: cooperative, well kempt and well developed Orientation / Consciousness: awake, oriented to person, oriented to place and oriented to time HEENT normocephalic, head/scalp atraumatic, hearing grossly normal bilaterally and moist oral mucous membranes Eyes PERRL, EOMs intact bilaterally and conjunctivae normal Neck supple, no JVD, thyroid normal and no carotid bruits General: trachea midline Resp normal respiratory effort, no retractions, no use of accessory muscles and clear to auscultation bilaterally Auscultation: Negative for rales, rhonchi or wheezes Cardio regular rate, regular rhythm, S1 normal heart sound, S2 normal heart sound, no murmurs, no rub and no gallops GI normal to inspection, nondistended, normoactive bowel sounds, soft to palpation, non-tender and non-distended Extremity Extremity Narrative: Right leg was not examined during the time of this examination, it is wrapped with surgical dressing Skin no rashes or lesions noted General Skin Exam: no breakdown Neuro oriented x3, CN's II-XII intact bilaterally, no focal motor deficits and no sensory deficits noted Sensorium / Orientation: awake and alert Speech: speech normal Psych affect normal Assessment & Plan Assessment/Plan (1) Fracture of distal end of right femur: (2) Femur fracture, right: PLAN: Plan 1. Distal spiral right femoral [id number] to osteoporosis-postop day 1 insertion of intramedullary ayde/ORIF right femur-PT and OT will see the patient, patient may need temporary placement in a retirement facility for rehab services #2 essential hypertension-patient is on metoprolol, blood pressure will be monitored #3 chronic depression-patient is on Cymbalta #4 hypothyroidism-patient is on Synthroid #5 chronic anxiety-patient is on Ativan Total clinical time spent by myself addressing the patient's medical issues, reviewing all of her data, and collaborating with patient's care team: 35 minutes Charges/Coding Visit Charges Inpatient E&M: 02040 Subs Hosp L2
[2024-08-25] MEDS: LORazepam 1 MG Tablet PO (20:14)
[2024-08-26] VITALS (12 sets, daily range): BP systolic 99–109; BP diastolic 49–75; PULSE 84–105; RESP 16–18; TEMP 36.7–37.7; O2SAT 91–96
[2024-08-26] MEDS: LORazepam 1 MG Tablet PO ×2 (03:53→21:07)
[2024-08-26] MEDS: Rivaroxaban 10 MG Tablet PO (06:12)
[2024-08-26] MEDS: Levothyroxine 88 MCG Tablet PO (06:12)
[2024-08-26] MEDS: Ipratropium/Albuterol Sulfate 3 ML AMPUL.NEB INHALATION ×3 (06:42→17:20)
[2024-08-26] MEDS: Gabapentin 300 MG Capsule 600 MG PO ×2 (09:15→14:06)
[2024-08-26] MEDS: Ensure Surgery 237 ML LIQUID PO ×3 (09:15→17:22)
[2024-08-26] MEDS: oxyCODONE 5 MG Tablet 10 MG PO ×2 (09:15→23:43)
[2024-08-26] MEDS: DULoxetine Hcl 20 MG Capsule PO (09:17)
[2024-08-26] MEDS: Calcium Carb/Vitamin D 1 TABLET Tablet PO ×2 (09:17→17:22)
[2024-08-26] MEDS: Metoprolol Tartrate 50 MG Tablet PO ×2 (09:44→21:04)
--- NOTE | 2024-08-26 11:11 | PCM.PN.HOSP ---
Reason for Visit Reason for Visit: Diagnoses Unspecified fracture of lower end of right femur, initial encounter for closed fracture (08/23/24) Unspecified fracture of right femur, initial encounter for closed fracture (08/23/24) Subjective Subjective Saw patient at bedside this morning. Patient was sitting back comfortably in bed, conversing normally, in no acute distress. Reported mild sided thigh pain, similar to previous days. No new concerns today. Objective Data Objective Data Vital Signs: Vital Signs Temp Pulse Resp BP Pulse Ox O2 Del Method O2 Flow Rate 98.1 F 96 17 104/55 L 92 Room Air 2 08/26/24 08:03 08/26/24 09:44 08/26/24 08:03 08/26/24 09:44 08/26/24 08:03 08/26/24 09:36 08/25/24 03:28 Oxygen Flow Rate (L/min) 2 Oxygen Delivery Method Room Air Weight: 86.2 kg Body Mass Index (BMI) 31.6 Intake & Output: Intake and Output for Last 24 Hours 08/24/24 08/25/24 08/26/24 23:59 23:59 23:59 Intake Total 50 / 50 287 / 587 600 / 600 Output Total 1550 / 1550 850 / 850 550 / 550 Balance -1500 / -1500 -563 / -263 50 / 50 Lab / Micro Data 08/24/24 03:21 08/24/24 03:21 Social Homelessness:: Sheltered Physical Exam Const alert, oriented x3 and no apparent distress Constitutional Narrative: Upper middle-aged female, class I obesity, sitting back comfortably in bed, conversing normally, in no acute distress. General Appearance: cooperative and comfortable HEENT normocephalic, head/scalp atraumatic, hearing grossly normal bilaterally, nasal mucous membranes and turbinates normal and moist oral mucous membranes Eyes PERRL, EOMs intact bilaterally and conjunctivae normal Neck full ROM Chest inspection of chest normal Resp normal respiratory effort, normal air movement, no use of accessory muscles and clear to auscultation bilaterally Cardio regular rate, regular rhythm, no murmurs and peripheral pulses 2+ throughout GI normal to inspection, nondistended, normoactive bowel sounds, soft to palpation, non-tender and non-distended Back/Spine normal ROM Extremity Extremity Narrative: Dressing and ice pack in place on right upper leg. Skin no rashes or lesions noted Psych mental status grossly normal Assessment & Plan Assessment/Plan (1) Fracture of distal end of right femur: PLAN: Plan Patient is a 69-year-old female who presented to [facility] ED on 08/23/24 with right hip pain after a fall at home. 1. Distal displaced spiral right femoral fracture with acute on chronic debility ? Orthopedic surgery following. S/p ORIF with intramedullary nail placement on 08/24. Tolerated procedure well, no intraoperative complications. Postoperative management per orthopedics. PT/OT/case management following. Planning for SNF placement on discharge, medically ready on 08/26, awaiting placement. 2. Tobacco use ? Current smoker. Nicotine patch in place per patient request. Discussed cessation. 3. Chronic low back pain/fibromyalgia/anxiety/depression ? Continue home gabapentin, duloxetine, Ativan as needed, oxycodone as needed and Flexeril as needed. Chronic medical conditions: ? Class I obesity: BMI 31 on admit. Complicates hospital course, care and prognosis. ? Hypothyroidism: Continue home Synthroid. ? Hypertension: Continue home Lopressor. ? Osteoporosis: No inpatient needs, will need close outpatient follow-up. DVT prophylaxis: Low-dose Xarelto CODE STATUS: Full code, unverified Expected disposition: SNF, medically ready on 08/26, awaiting placement Total clinical time spent by myself addressing the patient's medical issues, reviewing all the data, and collaborating with patient's care team: 35 minutes. Charges/Coding Visit Charges Inpatient E&M: 34226 Subs Hosp L2
--- NOTE | 2024-08-26 11:44 | CASEMGMT ---
Discharge Planning A list of?SNF providers including quality and resource use data and consistent with the patient's preferred geographic region, medical needs, and insurance network was created in [employer] Guide.? This list was provided to the SW. Daly Ybarra Discharge Planning Asst.
--- NOTE | 2024-08-26 13:02 | CASEMGMT ---
Social Work- SW met with pt to discuss discharge planning needs. A list of SNF providers including quality and resource use data and consistent with the patient?s preferred geographic region, medical needs, and insurance network were provided from the [employer] Guide. SW provided education on the referral and precert process. Pt selected [facility] as [facility] and [facility] and [facility] as alternates. SW completed referral to TCU. SW notified [facility] of alternate choices. SW remains available to follow. ADELA Taylor
[2024-08-27] VITALS (14 sets, daily range): BP systolic 86–125; BP diastolic 50–65; PULSE 83–103; RESP 14–18; TEMP 36.4–37.2; O2SAT 95–100
[2024-08-27] MEDS: oxyCODONE 5 MG Tablet 10 MG PO ×3 (03:38→23:04)
[2024-08-27] MEDS: Rivaroxaban 10 MG Tablet PO (05:26)
[2024-08-27] MEDS: Levothyroxine 88 MCG Tablet PO (05:26)
[2024-08-27 07:10] LABS: Hematocrit 23.4 % (37-47); Hemoglobin 7.5 g/dL (12.0-15.0); Mean Corp Hgb Conc 32.1 g/dL (32-36); Mean Corpuscular Hgb 28.5 pg (27.0-32.0); Platelet Count 214 K/mm3 (150-450); RBC Distribution Width CV 14.3 % (11.6-14.6); RBC Distribution Width SD 45.9 fl (35.1-43.9); Red Blood Count 2.63 M/mm3 (4.2-5.4); White Blood Count 8.5 K/mm3 (4.4-11.0)
[2024-08-27] MEDS: Ipratropium/Albuterol Sulfate 3 ML AMPUL.NEB INHALATION ×3 (07:35→19:55)
[2024-08-27 07:45] LABS: Anion Gap 8 (5-15); BUN 32 mg/dL (4-19); BUN/Creat Ratio 27.2 RATIO (10-20); Calcium,Total 8.7 mg/dL (7.6-11.0); Carbon Dioxide 22.8 mmol/L (21.0-32.0); Chloride 104 mmol/L (98-108); Creatinine, Serum 1.16 mg/dL (0.70-1.20); EST Glomerular Filtration Rate 51 (>60); Estimated Creatinine Clearance 50.33 ml/min (50-250); Glucose 102 mg/dL (70-99); Potassium 4.6 mmol/L (3.3-5.1); Sodium Level 134 mmol/L (133-145)
[2024-08-27] MEDS: Calcium Carb/Vitamin D 1 TABLET Tablet PO ×2 (08:17→18:07)
[2024-08-27] MEDS: Ensure Surgery 237 ML LIQUID PO (08:17)
[2024-08-27] MEDS: Metoprolol Tartrate 50 MG Tablet PO ×2 (09:26→21:40)
[2024-08-27] MEDS: DULoxetine Hcl 20 MG Capsule PO (09:26)
--- NOTE | 2024-08-27 10:38 | TREXTCAR_ITS ---
Diet Diet Order/Speech Therapy: 08/24/24 20:23 Diet: Regular - General Routine Orders/Code Status Routine Lab Work: CBC (Repeat in 3 to 5 days to ensure hemoglobin remains stable) Code Status: Full Code DC O2, CPAP, BIPAP needs Home O2 Discharge instructions: No Wound(s) left hand: Wound Type: Abrasion RIGHT LEG: Wound Type: Surgical Incision left elbow: Wound Type: Abrasion upper right thigh: Wound Type: Surgical Incision Right elbow: Wound Type: Abrasion Therapies Weight Bearing: Full weight bearing Physical Therapy: Eval and Treat Occupational Therapy: Eval and Treat Problem/Diagnosis (1) Fracture of distal end of right femur: Status: Acute Code(s): S72.401A - Unspecified fracture of lower end of right femur, initial encounter for closed fracture Plan Patient is a 69-year-old female who presented to [facility] ED on 08/23/24 with right hip pain after a fall at home. Hospital course as noted below. Patient discharged to SNF at [facility] in stable condition on 08/27. 1. Distal displaced spiral right femoral fracture with acute on chronic debility ? Orthopedic surgery followed. S/p ORIF with intramedullary nail placement on 08/24. Tolerated procedure well, no intraoperative complications. Postoperative management per orthopedics. PT/OT/case management followed. Medically ready for discharge on 08/26, discharged to SNF in stable condition on 08/27. Pain control with home pain medications as noted below. Low-dose Xarelto for 2 weeks followed by baby aspirin twice daily for 2 weeks for DVT prophylaxis. 2. Postoperative anemia ? Hemoglobin 10.3 on admit, dropped to 7.5 postoperatively. Consistent with expected blood loss from procedure. Patient with no symptoms of anemia. Recommend repeat CBC in 3 to 5 days to ensure that hemoglobin remains stable. 3. CKD stage IIIa ? Creatinine stable at baseline 1.1-1.2 during hospitalization with good urine output. Continue outpatient follow-up. 4. Tobacco use ? Current smoker. Nicotine patch in place per patient request during hospitalization. Discussed cessation. 5. Chronic low back pain/fibromyalgia/anxiety/depression ? Continue home gabapentin, duloxetine, Ativan as needed, oxycodone as needed and Flexeril as needed. Chronic medical conditions: ? Class I obesity: BMI 31 on admit. Complicated hospital course, care and prognosis. ? Hypothyroidism: Continue home Synthroid. ? Hypertension: Continue home Lopressor. ? Osteoporosis: No inpatient needs, will need close outpatient follow-up. Total clinical time spent by myself addressing the patient's medical issues, reviewing all the data, and collaborating with patient's care team: 35 minutes. Allergies/Procedures Done in Hospital Allergies pregabalin (From Lyrica) Allergy (Verified 08/23/24 10:11) SUICIDAL pentazocine lactate (From Talwin) Adverse Reaction (Verified 08/23/24 10:11) Vomiting Procedures: EKG and - (ORIF of right femur, chest x-ray, hip/pelvis/femur/knee x-rays) Type of Care/Length of Stay Estimated LOS: Convalescent Care Less Than 30 days Type of Care Needed: Skilled Rehab Potential: Fair Prognosis: Fair Additional Orders/Day of Discharge H&P will serve as current which was dated: 08/23/24 Day of Discharge: 08/27/24 Dietary and Speech Recommendations Dietitian Recommendations/Changes: Continue regular diet; restrict diet as needed. ONS if PO established suboptimal at meals. Discharge Plan Admission Admit Date/Time: 08/23/24 12:04 Primary Reason for Your Visit: Fall with right leg pain Attending Provider: Brayden Paul Primary Care Provider: Juan Lr Consulting Providers: Dhruv Mcclendon; Terry Hendrix Discharge Orders/Prescriptions Prescriptions: New oxycodone 5 mg Tablet 10 mg PO Q4H PRN PRN (Reason: Pain Score 4-10) Qty: 0 0RF calcium carbonate-vitamin D3 [Oyster Shell Calcium-Vit D3] 500 mg-5 mcg (200 unit) Tablet 1 tab PO BIDCM Qty: 0 0RF Xarelto 10 mg Tablet 10 mg PO DAILY@0600 14 Days Qty: 0 0RF Continued lorazepam 1 MG tablet 1 mg PO Q8H PRN (Reason: Anxiety) cyclobenzaprine 10 mg tablet 10 mg PO TID PRN (Reason: muscle spasm) levothyroxine 88 mcg tablet 88 mcg PO DAILY metoprolol tartrate 50 mg tablet 50 mg PO BID albuterol sulfate 90 mcg/actuation HFA aerosol inhaler 2 puff inhalation Q4H PRN (Reason: wheezing) duloxetine 20 mg capsule,delayed release(DR/EC) 20 mg PO DAILY Referrals / Follow Up: Juan Lr DO [Primary Care Provider] - Dhruv Mcclendon MD [Med Staff - Active Staff] - Disposition Disposition (needs filled in before D/C Order can be placed): Detention Facility
--- NOTE | 2024-08-27 10:39 | PCM.DC.SUM ---
Providers Date of Admission: 08/23/24 Date of Discharge: 08/27/24 Primary Care Physician: Dr. Juan Lr, Consultations 08/23/24 13:01 Consult: Orthopedics Routine Consulting Provider: Dhruv Mcclendon Reason for Consult: femoral fracture EMERGENT Consult: No MD Notified: Yes Date Notified: 08/23/24 Time Notified: 12:14 Method of Notification: Verbal Reason For Visit: FRACTURE RIGHT FEMUR Diagnosis Discharge Diagnosis (1) Fracture of distal end of right femur: Status: Acute Code(s): S72.401A - Unspecified fracture of lower end of right femur, initial encounter for closed fracture Medications at Discharge Home Medications lorazepam 1 mg tablet 1 mg PO Q8H PRN Anxiety 03/05/18 albuterol sulfate 90 mcg/actuation aerosol inhaler 2 puff inhalation Q4H PRN wheezing 08/23/24 cyclobenzaprine 10 mg tablet 10 mg PO TID PRN muscle spasm 08/23/24 duloxetine 20 mg capsule,delayed release 20 mg PO DAILY 08/23/24 levothyroxine 88 mcg tablet 88 mcg PO DAILY 08/23/24 metoprolol tartrate 50 mg tablet 50 mg PO BID 08/23/24 calcium 500 mg (as carbonate)-vitamin D3 5 mcg (200 unit) tablet (Oyster Shell Calcium-Vitamin D3) 1 tab PO BIDCM #0 tabs 08/27/24 oxycodone 5 mg tablet 10 mg (2 x 5 mg) PO Q4H PRN PRN Pain Score 4-10 #0 tabs 08/27/24 rivaroxaban 10 mg tablet (Xarelto) 10 mg PO DAILY@0600 14 days #0 tabs 08/27/24 Hospital Course Operations - (ORIF of right femur) Procedures EKG and - (Chest x-ray, hip/pelvis/femur/knee x-rays) Summary of Care Provided Minutes Spent on Discharge: 35 Hospital Course: Patient is a 69-year-old female who presented to [facility] ED on 08/23/24 with right hip pain after a fall at home. Hospital course as noted below. Patient discharged to SNF at [facility] in stable condition on 08/27. 1. Distal displaced spiral right femoral fracture with acute on chronic debility ? Orthopedic surgery followed. S/p ORIF with intramedullary nail placement on 08/24. Tolerated procedure well, no intraoperative complications. Postoperative management per orthopedics. PT/OT/case management followed. Medically ready for discharge on 08/26, discharged to SNF in stable condition on 08/27. Pain control with home pain medications as noted below. Low-dose Xarelto for 2 weeks followed by baby aspirin twice daily for 2 weeks for DVT prophylaxis. 2. Postoperative anemia ? Hemoglobin 10.3 on admit, dropped to 7.5 postoperatively. Consistent with expected blood loss from procedure. Patient with no symptoms of anemia. Recommend repeat CBC in 3 to 5 days to ensure that hemoglobin remains stable. 3. CKD stage IIIa ? Creatinine stable at baseline 1.1-1.2 during hospitalization with good urine output. Continue outpatient follow-up. 4. Tobacco use ? Current smoker. Nicotine patch in place per patient request during hospitalization. Discussed cessation. 5. Chronic low back pain/fibromyalgia/anxiety/depression ? Continue home gabapentin, duloxetine, Ativan as needed, oxycodone as needed and Flexeril as needed. Chronic medical conditions: ? Class I obesity: BMI 31 on admit. Complicated hospital course, care and prognosis. ? Hypothyroidism: Continue home Synthroid. ? Hypertension: Continue home Lopressor. ? Osteoporosis: No inpatient needs, will need close outpatient follow-up. Total clinical time spent by myself addressing the patient's medical issues, reviewing all the data, and collaborating with patient's care team: 35 minutes. Physical Exam Const alert, oriented x3 and no apparent distress Constitutional Narrative: Upper middle-aged female, class I obesity, sitting back comfortably in bed, conversing normally, in no acute distress. General Appearance: cooperative and comfortable HEENT normocephalic, head/scalp atraumatic, hearing grossly normal bilaterally, nasal mucous membranes and turbinates normal and moist oral mucous membranes Eyes PERRL, EOMs intact bilaterally and conjunctivae normal Neck full ROM Chest inspection of chest normal Resp normal respiratory effort, normal air movement, no use of accessory muscles and clear to auscultation bilaterally Cardio regular rate, regular rhythm, no murmurs and peripheral pulses 2+ throughout GI normal to inspection, nondistended, normoactive bowel sounds, soft to palpation, non-tender and non-distended Back/Spine normal ROM Extremity Extremity Narrative: Dressing and ice pack in place on right upper leg. Skin no rashes or lesions noted Psych mental status grossly normal Medical Records Data Homelessness:: Sheltered Weight / BMI Weight Weight: 86.2 kg Body Mass Index (BMI) 31.6 ABG / Lab / Microbiology Data 08/27/24 06:34 08/27/24 06:34 Laboratory: Laboratory Results - last 24 hr 08/27/24 06:34: WBC 8.5, RBC 2.63 L, Hgb 7.5 L, Hct 23.4 L, MCV 89.0, MCH 28.5, MCHC 32.1, RDW Std Deviation 45.9 H, RDW Coeff of Promise 14.3, Plt Count 214, MPV 10.0, Sodium 134, Potassium 4.6, Chloride 104, Carbon Dioxide 22.8, Anion Gap 8, BUN 32 H, Creatinine 1.16, Estim Creat Clear Calc 50.33, Est GFR (MDRD) Non-Af 51 L, BUN/Creatinine Ratio 27.2 H, Glucose 102 H, Calcium 8.7 D/C Instructions DC O2, CPAP, BIPAP Needs Home O2 Discharge instructions: No Meaningful Use Info Meaningful Use Meaningful Use Diagnoses (Choose all that apply): None applicable Ischemic Stroke Statin Dosing Therapy Reference: STATIN DOSE THERAPY REFERENCE: * Patients > 75 years receive moderate or high dose statin therapy. * Patients 75 years or YOUNGER should receive HIGH intensity statin dose unless contraindicated. You will be required to document reason for non-treatment if statin daily dose does not meet guidelines. HIGH DOSE STATIN THERAPY DAILY Atorvastatin > than or = to 40 mg Rosuvastatin > than or = to 20 mg Amlodipine + Atorvastatin > than or = to 2.5/40 mg Ezetimibe + Simvastatin 10/80 mg Simvastatin 80mg Discharge Plan Admission Admit Date/Time: 08/23/24 12:04 Primary Reason for Your Visit: Fall with right leg pain Attending Provider: Brayden Paul Primary Care Provider: Juan Lr Consulting Providers: Dhruv Mcclendon; Terry Hendrix Discharge Orders/Prescriptions Prescriptions: New oxycodone 5 mg Tablet 10 mg PO Q4H PRN PRN (Reason: Pain Score 4-10) Qty: 0 0RF calcium carbonate-vitamin D3 [Oyster Shell Calcium-Vit D3] 500 mg-5 mcg (200 unit) Tablet 1 tab PO BIDCM Qty: 0 0RF Xarelto 10 mg Tablet 10 mg PO DAILY@0600 14 Days Qty: 0 0RF Continued lorazepam 1 MG tablet 1 mg PO Q8H PRN (Reason: Anxiety) cyclobenzaprine 10 mg tablet 10 mg PO TID PRN (Reason: muscle spasm) levothyroxine 88 mcg tablet 88 mcg PO DAILY metoprolol tartrate 50 mg tablet 50 mg PO BID albuterol sulfate 90 mcg/actuation HFA aerosol inhaler 2 puff inhalation Q4H PRN (Reason: wheezing) duloxetine 20 mg capsule,delayed release(DR/EC) 20 mg PO DAILY Referrals / Follow Up: Juan Lr DO [Primary Care Provider] - Dhruv Mcclendon MD [Med Staff - Active Staff] - Disposition Disposition (needs filled in before D/C Order can be placed): [facility] Facility Charges/Coding Visit Charges Inpatient E&M: 04914 Disch Hosp >30min
--- NOTE | 2024-08-27 11:35 | CASEMGMT ---
Addendum entered by Sheeba Mackay 08/28/24 14:01: Pt reportedly became unstable and not ready for discharge. SW remains available to follow. ADAN collaborated with TCU admissions. ADELA Taylor Original Note: Social Work Precert has been obtained.? Physician updated and pt is ready for discharge today.?SW met with pt and they are agreeable to discharge plan as stated above.? Pt reports that she will call sister and daughter. Bedside nurse notified of discharge. ADAN faxed discharge documentation to TCU. Plan: TCU; skilled level of care ADELA Taylor
--- NOTE | 2024-08-27 13:59 | PHA.DC.MR.R ---
Pharmacy [place] [facility] Reconciliation Pharmacy Service has performed discharge medication reconciliation for this patient. The patient's discharge medication list was reviewed for discrepancies and discrepancies were resolved. Medications at Discharge Home Medications lorazepam 1 mg tablet 1 mg PO Q8H PRN Anxiety 03/05/18 albuterol sulfate 90 mcg/actuation aerosol inhaler 2 puff inhalation Q4H PRN wheezing 08/23/24 cyclobenzaprine 10 mg tablet 10 mg PO TID PRN muscle spasm 08/23/24 duloxetine 20 mg capsule,delayed release 20 mg PO DAILY 08/23/24 levothyroxine 88 mcg tablet 88 mcg PO DAILY 08/23/24 metoprolol tartrate 50 mg tablet 50 mg PO BID 08/23/24 calcium 500 mg (as carbonate)-vitamin D3 5 mcg (200 unit) tablet (Oyster Shell Calcium-Vitamin D3) 1 tab PO BIDCM #0 tabs 08/27/24 oxycodone 5 mg tablet 10 mg (2 x 5 mg) PO Q4H PRN PRN Pain Score 4-10 #0 tabs 08/27/24 rivaroxaban 10 mg tablet (Xarelto) 10 mg PO DAILY@0600 14 days #0 tabs 08/27/24
[2024-08-27] MEDS: Acetaminophen 500 MG Tablet 1000 MG PO (14:39)
[2024-08-27] MEDS: 0.9% Saline Lock 10 ML Syringe IV ×2 (14:44→16:53)
[2024-08-27] MEDS: Ketorolac 15 MG/ML Vial IV (15:00)
[2024-08-27] MEDS: Lactated Ringers 1,000 ML 500 ML IV (16:54)
[2024-08-28 04:06] VITALS: BP 96/49; PULSE 79; RESP 16; TEMP 36.9; O2SAT 98
[2024-08-28] MEDS: Rivaroxaban 10 MG Tablet PO (06:41)
[2024-08-28] MEDS: Levothyroxine 88 MCG Tablet PO (06:41)
[2024-08-28] MEDS: oxyCODONE 5 MG Tablet 10 MG PO ×3 (06:45→15:48)
[2024-08-28 06:48] VITALS: BP 108/50
[2024-08-28] MEDS: Ipratropium/Albuterol Sulfate 3 ML AMPUL.NEB INHALATION (07:07)
[2024-08-28 07:08] VITALS: PULSE 81; RESP 16
[2024-08-28] MEDS: Calcium Carb/Vitamin D 1 TABLET Tablet PO (07:40)
[2024-08-28] MEDS: DULoxetine Hcl 20 MG Capsule PO (07:40)
[2024-08-28] MEDS: Ensure Surgery 237 ML LIQUID PO ×2 (07:43→10:59)
[2024-08-28 08:27] VITALS: BP 97/56; PULSE 96; RESP 16; TEMP 36.8; O2SAT 98
[2024-08-28 09:14] LABS: Hematocrit 24.5 % (37-47); Hemoglobin 7.9 g/dL (12.0-15.0); Mean Corp Hgb Conc 32.2 g/dL (32-36); Mean Corpuscular Hgb 28.2 pg (27.0-32.0); Mean Corpuscular Volume 87.5 fL (81-99); Mean Platelet Vol. 9.9 fl (6.2-12.0); Platelet Count 290 K/mm3 (150-450); RBC Distribution Width CV 14.4 % (11.6-14.6); RBC Distribution Width SD 45.8 fl (35.1-43.9); White Blood Count 7.9 K/mm3 (4.4-11.0)
[2024-08-28 09:36] LABS: Anion Gap 10 (5-15); BUN 35 mg/dL (4-19); BUN/Creat Ratio 28.2 RATIO (10-20); Carbon Dioxide 21.3 mmol/L (21.0-32.0); Chloride 103 mmol/L (98-108); Creatinine, Serum 1.25 mg/dL (0.70-1.20); EST Glomerular Filtration Rate 47 (>60); Glucose 119 mg/dL (70-99); Potassium 4.3 mmol/L (3.3-5.1); Sodium Level 134 mmol/L (133-145)
[2024-08-28 11:09] VITALS: BP 118/64; PULSE 92; RESP 16; TEMP 36.7; O2SAT 98
--- NOTE | 2024-08-28 11:44 | RAD_ITS ---
PROCEDURE: FEMUR MIN 2 VIEWS 08/28/2024 REASON FOR EXAM: WORSENING KNEE PAIN/SWELLING POST FEMUR ORIF TECHNIQUE: 5 view(s) of the right femur. COMPARISON: Intraoperative fluoroscopic imaging 08/24/2024. right knee and hip radiographs 08/23/2024. FINDINGS: Bones: Diffuse osseous demineralization. Interval surgical ayde and screw fixation of the distal right femoral fracture with interval improvement of the offset fracture fragments. The orthopedic hardware is in grossly anatomic alignment without evidence of fracture. No obvious acute right knee fracture, however visualization is limited by surgical clips and soft tissue swelling. Joints: Severe right knee arthrosis. Soft tissues: Soft tissue swelling and subcutaneous gas, compatible with postoperative status. Other: Surgical clips overlie the right lateral hip and midline knee joint. RAD/Femur Min 2 Views IMPRESSION: Interval ayde and screw fixation of the distal right femoral fracture as describ ed. No obvious acute right knee fracture, however visualization is limited by surgical clips and soft tissue swelling. Reading Location: [id number]
--- NOTE | 2024-08-28 14:01 | CASEMGMT ---
Social Work- Pt has remained medically unstable for discharge. SW remains available to follow. SW coordinating with TCU admissions and physician on discharge planning. Plan: TCU; skilled level of care ADELA Taylor
[2024-08-28 15:01] VITALS: BP 99/72; PULSE 91; RESP 16; TEMP 36.7; O2SAT 99
--- NOTE | 2024-08-28 15:18 | PCM.HOSP.N ---
Hospitalist Note Patient remained hospitalized on 08/28 for repeat lab work given hemoglobin drop noted on 08/27 as well as slight worsening of right knee pain with swelling. Repeat hemoglobin was 7.9 from 7.5, stable. Discussed with orthopedics who recommended repeat right knee/femur x-ray for further evaluation. Repeat x-ray showed that hardware was in appropriate positioning; did show soft tissue swelling but this was and expected degree of postoperative swelling. Given these findings, patient is stable for discharge to TCU this afternoon.
--- NOTE | 2024-08-28 15:40 | CASEMGMT ---
Social Work- Physician feels that pt is medically ready for discharge. Precert previously obtained. Pt agreeable to discharge plan. SW notified bedside nurse. ADAN faxed discharge documentation to TCU. Plan: TCU; skilled level of care ADELA Taylor
== END 2024-08-28 16:06 | disposition skilled nursing facility (03) | DRG 482 ==
LOC: ED 12:04 → MS3 12:24
PROVIDERS: Anesthesiology; Specialist; Admitting Provider Internal Medicine; Emergency Provider Emergency Medicine; PCP Student in an Organized Health Care Education/Training Program; Visit Provider Hospitalist
PROC: 0QSB06Z Reposition Right Lower Femur with Intramedullary Internal Fixation Device, Open Approach (ICD-10-PCS; CPT 27245; principal; 2024-08-24 07:30)
DX: M80.051A Age-related osteoporosis with current pathological fracture, right femur, initial encounter for fracture (principal); D64.89 Other specified anemias; N18.31 Chronic kidney disease, stage 3a; E03.9 Hypothyroidism, unspecified; F32.A Depression, unspecified; I12.9 Hypertensive chronic kidney disease with stage 1 through stage 4 chronic kidney disease, or unspecified chronic kidney disease; Z68.31 Body mass index [BMI] 31.0-31.9, adult; M79.7 Fibromyalgia; F17.210 Nicotine dependence, cigarettes, uncomplicated; M54.50 Low back pain, unspecified; F41.9 Anxiety disorder, unspecified; W19.XXXA Unspecified fall, initial encounter; Z79.890 Hormone replacement therapy; Z90.710 Acquired absence of both cervix and uterus; E66.811 Obesity, class 1; Z79.891 Long term (current) use of opiate analgesic; G89.29 Other chronic pain
CPT/HCPCS: 36415; 51702; 71045; 73502; 73552; 73560; 76000; 80048; 80053; 80076; 85025; 85027; 85730; 93005; 94640; 94668; 97162; 97166; 97530; 97535; 97802; 99285; C1713; A4216; J2405

== ENCOUNTER 2024-08-28 16:20 | Inpatient (IN) | payer MEDICARE, SELFPAY ==
[2024-08-28 16:45] VITALS: BP 116/61; PULSE 81; RESP 16; TEMP 36.7; O2SAT 95; BMI 33.3
[2024-08-28] MEDS: Calcium Carb/Vitamin D 1 TABLET Tablet PO (18:02)
[2024-08-28 19:48] VITALS: BP 126/61; PULSE 94
[2024-08-28] MEDS: Metoprolol Tartrate 50 MG Tablet PO (19:48)
[2024-08-28] MEDS: oxyCODONE 5 MG Tablet 10 MG PO (19:48)
--- NOTE | 2024-08-28 19:58 | PCM.HP.STD ---
HPI - General General Date of Admission: 08/28/24 Date of Service: 08/28/24 Chief Complaint: Here for rehabilitation. HPI Narrative ALAN CM, is a 69 Female who presents with followin08/23/2024 [facility] ED fall. Right hip pain, mopping kitchen floor, slipped and fell on floor. Hit head, no loss of consciousness, No blood thinners. Right hip pain, Right knee pain. Ketamine, Morphine, Zofran given. X-ray right knee showed spiral fracture distal femoral diaphysis with offset of the fracture fragments with lateral displacement. Right knee immobilizer applied. 08/23/2024 Admit [facility]. Prepare for surgery, pain control, PT/OT/CM for right distal femur fracture. 08/24/2024 Dr. Mcclendon performed open reduction retrograde intramedullary nail right femur. 08/24/2024 Pain, Dilaudid IV given. PT/OT. 08/25/2024 Pain, but improved after fixation. Xarelto 10mg daily x 2 weeks, then Aspirin 81mg bid x 2weeks DVT prophylaxis. TTWB right lower extremity, consider SNF. 08/25/2024 Some surgical pain, no shortness of breath, no chest pain. PT/OT SNF. 08/26/2024 Comfortable, mild right thigh pain. PT/OT SNF. Nicotine patch for tobacco abuse, she smokes 10 cigarettes per day. 08/27/2024 Hemoglobin 7.5. Patient hypotensive, IV fluids given. 08/28/2024 Hemoglobin 7.9, up from 7.5. X-ray right knee/right femur stable. 08/28/2024 Admit to TCU with debility, here for rehabilitation, strengthening, prior to discharge home with brother. [facility] Medical History (Updated 08/28/24 @ 20:[address] Edmund Salter MD) Anxiety and depression Osteoporosis Smoker Bone spur of foot Hypertension Arthritis Chronic low back pain Fibromyalgia Home Medications ?Medication ?Instructions ?Recorded ?Last Taken ?Type lorazepam 1 mg tablet 1 mg PO Q8H PRN Anxiety 03/05/18 08/22/24 History albuterol sulfate 90 mcg/actuation 2 puff inhalation Q4H PRN wheezing 08/23/24 08/22/24 History aerosol inhaler cyclobenzaprine 10 mg tablet 10 mg PO TID PRN muscle spasm 08/23/24 08/22/24 History duloxetine 20 mg capsule,delayed 20 mg PO DAILY Mood 08/23/24 08/23/24 History release levothyroxine 88 mcg tablet 88 mcg PO DAILY Thyroid 08/23/24 08/22/24 History metoprolol tartrate 50 mg tablet 50 mg PO BID BP 08/23/24 08/23/24 History calcium 500 mg (as 1 tab PO BIDCM Supplement #0 tabs 08/27/24 Unknown Rx carbonate)-vitamin D3 5 mcg (200 unit) tablet (Oyster Shell Calcium-Vitamin D3) oxycodone 5 mg tablet 10 mg (2 x 5 mg) PO Q4H PRN PRN 08/27/24 Unknown Rx Pain Score 4-10 #0 tabs rivaroxaban 10 mg tablet (Xarelto) 10 mg PO DAILY@0600 Blood Thinner 08/27/24 Unknown Rx 14 days #0 tabs Allergy/AdvReac Type Severity Reaction Status Date / Time pregabalin (From Lyrica) Allergy SUICIDAL Verified 08/23/24 10:11 pentazocine lactate (From AdvReac Vomiting Verified 08/23/24 10:11 Celso) Surgical History History of carpal tunnel repair History of hysterectomy Social History (Updated 08/28/24 @ 20:[address] Edmund Salter MD) household members: family and other details: Brother lives upstairs. Smoking Status: Current every day smoker tobacco type: cigarettes alcohol intake: never substance use type: does not use ROS Constitutional Constitutional: Reports weakness; Denies chills, fever(s) or weight gain ENT HEENT: Denies headache(s), nasal congestion or nasal discharge Cardiovascular Cardiovascular: Denies chest pain or palpitations Respiratory/Chest Respiratory/Chest: Denies cough, excessive phlegm production or shortness of breath with exertion Gastrointestinal Gastrointestinal: Denies abdominal pain, nausea or vomiting Genitourinary Genitourinary: Denies dysuria Musculoskeletal Musculoskeletal: Denies joint pain or joint swelling Integumentary Integumentary: Denies rash or wounds Neurologic Neurologic: Denies focal weakness, numbness or tingling Psychiatric Psychiatric: Denies anxiety, auditory hallucinations, depression, homicidal ideation or suicidal ideation Vital Signs Vital Signs Vital Signs: 08/28/24 16:45 08/28/24 16:45 08/28/24 19:48 Temperature 98.1 F Temperature Source Temporal Pulse Rate 81 94 Pulse Rhythm Regular Pulse Strength Normal (2+) Respiratory Rate 16 Respiratory Effort Normal Non-Labored Respiratory Depth Normal Respiratory Pattern Normal Blood Pressure 116/61 126/61 H Blood Pressure Mean 79 Blood Pressure Source Monitor Pulse Ox 95 Oxygen Delivery Method Room Air Room Air Weight Weight: 90.673 kg Body Mass Index (BMI) 33.3 Physical Exam Const alert General Appearance: cooperative HEENT normocephalic Eyes PERRL and EOMs intact bilaterally Neck supple, no JVD and no carotid bruits Resp normal respiratory effort, normal air movement and clear to auscultation bilaterally Cardio regular rate and regular rhythm GI normal to inspection, nondistended, normoactive bowel sounds, non-tender and non-distended Extremity normal capillary refill General Extremity: Negative for edema Skin no rashes or lesions noted General Skin Exam: no breakdown Psych affect normal Appearance: appropriate Assessment & Plan Assessment/Plan (1) Debility: (2) Fracture of distal end of right femur: (3) Fall: (4) Osteoporosis: (5) Essential (primary) hypertension: (6) Fibromyalgia: (7) Osteoarthritis: (8) Hyperlipidemia: (9) Depression: (10) Anxiety: (11) Muscle spasm: (12) Hypothyroidism: (13) Tobacco abuse: PLAN: Plan 69 year old female with below past medical history hospitalized for fall, right distal femur fracture, underwent open reduction retrograde intramedullary nail fixation 08/24/[address] Mcclendon, complicated by hypotension, acute blood loss anemia, admitted to TCU with debility, here for rehabilitation, strengthening, prior to discharge home with brother. Debility - PT/OT. Pain - Tylenol 1000mg q8, Oxycodone 10mg q4 prn pain (4-10). Bowel - senna/colace 2 tablets bid, Magnesium citrate 300mL daily prn. Adult immunization - Administer pneumonia vaccine, covid vaccine, flu vaccine as appropriate. DVT prophylaxis - Xarelto 10mg daily thru 09/12/2024, then Aspirin 81mg bid 09/13/2024 thru 09/26/2024. COPD - Albuterol 2 puffs q4 prn. Calcium deficiency - Calcium D 1 tablet bidcm. Muscle spasm - Flexeril 10mg tid prn. Hypothyroidism - Levothyroxine 88mcg daily. Skin irritation - Calmoseptine topical bid. Hypertension - Metoprolol 50mg bid. Tinea Corporis - Nystatin topical bid. Tobacco abuse - Nicotine 14mg patch td daily. The following psychotropic medication was present on admission: Duloxetine 20mg. Psychotropic medication therapy is indicated for a diagnosis of: Major Depression. Based on my clinical evaluation, continuation of the medication is necessary at this time. Gradual dose reduction plan (select one): ____ GDR will be attempted. Will monitor patient symptoms and behaviors in response to GDR. __x__ GRD contraindicated. Reason contraindicated: stable chronic long term acute care registered nurse use. The following psychotropic medication was present on admission: Lorazepam 1mg q8 prn. Psychotropic medication therapy is indicated for a diagnosis of: Anxiety Based on my clinical evaluation, continuation of the medication is necessary at this time. Gradual dose reduction plan (select one): ____ GDR will be attempted. Will monitor patient symptoms and behaviors in response to GDR. __x__ GRD contraindicated. Reason contraindicated: stable chronic group home use.
[2024-08-28] MEDS: Acetaminophen 500 MG Tablet 1000 MG PO (20:58)
[2024-08-28] MEDS: Senna/Docusate Sodium 1 Tablet 2 TABLET PO (20:58)
[2024-08-28] MEDS: LORazepam 1 MG Tablet PO (23:41)
[2024-08-29] MEDS: Acetaminophen 500 MG Tablet 1000 MG PO ×3 (04:28→21:39)
[2024-08-29] MEDS: Rivaroxaban 10 MG Tablet PO (04:28)
[2024-08-29] MEDS: Levothyroxine 88 MCG Tablet PO (04:28)
[2024-08-29 05:43] LABS: Absolute Lymphocyte Count 1.32 X10^3/uL (0.83-4.51); Absolute Neutrophil Count 3.6 X10^3/uL (2.0-7.7); Basophil# 0.05 X10^3/uL; Basophil% 0.9 % (0-1); Eosinophil# 0.36 X10^3/uL; Eosinophils% 6.2 % (0-5); Hematocrit 23.2 % (37-47); Hemoglobin 7.3 g/dL (12.0-15.0); Lymphocyte # 1.32 X10^3/ul (0.83-4.51); Lymphocyte % 22.7 % (19-41); Mean Corp Hgb Conc 31.5 g/dL (32-36); Mean Corpuscular Hgb 27.7 pg (27.0-32.0); Mean Corpuscular Volume 87.9 fL (81-99); Mean Platelet Vol. 9.4 fl (6.2-12.0); Monocyte# 0.45 X10^3/uL; Monocyte% 7.7 % (0-10); NRBC Flagged by Analyzer 0 % (0-5); Neutrophil # 3.61 X10^3/uL (2.7-7.7); POSITIVE MORPHOLOGY YES; Platelet Count 280 K/mm3 (150-450); RBC Distribution Width CV 14.4 % (11.6-14.6); Red Blood Count 2.64 M/mm3 (4.2-5.4); White Blood Count 5.8 K/mm3 (4.4-11.0)
[2024-08-29 05:44] LABS: Differential Indicated SCAN CRITERIA MET
[2024-08-29 06:18] LABS: Anion Gap 8 (5-15); BUN 31 mg/dL (4-19); BUN/Creat Ratio 26.6 RATIO (10-20); Calcium,Total 9.3 mg/dL (7.6-11.0); Carbon Dioxide 23.1 mmol/L (21.0-32.0); Chloride 104 mmol/L (98-108); Creatinine, Serum 1.15 mg/dL (0.70-1.20); EST Glomerular Filtration Rate 52 (>60); Estimated Creatinine Clearance 52.09 ml/min (50-250); Glucose 99 mg/dL (70-99); Potassium 4.4 mmol/L (3.3-5.1); Sodium Level 136 mmol/L (133-145)
[2024-08-29 06:43] LABS: Atypical Lymphocyte 1+ %; Platelet Estimate ADEQUATE (ADEQ); Red Cell Morphology NORM C+C NORMAL (NORM C&C)
--- NOTE | 2024-08-29 08:00 | NURSING ---
pt c/o beginning of cold sores, Dr major updated, new order for acyclovir. pt updated.
--- NOTE | 2024-08-29 08:15 | NURSING ---
Addendum entered by Lo Hardin 08/29/24 10:37: Correction: 0830 tomorrow. Addendum entered by Lo Hardin 08/29/24 10:31: Will have transfusion tomorrow (08/30/24) at 0800 at infusion center. Original Note: Order for 2 units of blood, orders faxed to infusion center. While entering orders TAX AUDIT MANAGER called for help to get resident back from bathroom, she was dizzy and needed to sit. Brought recliner to bathroom and she sat down, dizziness resolved shortly after. She reports having issues with dizziness for a few days. Updated her that hgb low, doctor had ordered blood transfusion.
[2024-08-29 08:35] VITALS: BP 131/68; PULSE 85; RESP 14; O2SAT 94
[2024-08-29 09:32] VITALS: TEMP 36
[2024-08-29] MEDS: Acyclovir 200 MG Capsule 400 MG PO ×3 (09:34→21:39)
[2024-08-29] MEDS: Calcium Carb/Vitamin D 1 TABLET Tablet PO ×2 (09:35→16:25)
[2024-08-29 09:36] VITALS: PULSE 85
[2024-08-29] MEDS: Metoprolol Tartrate 50 MG Tablet PO ×2 (09:36→21:40)
[2024-08-29] MEDS: DULoxetine Hcl 20 MG Capsule PO (09:36)
[2024-08-29] MEDS: Menthol/Lanolin/Calamine/Znox 113 GM Tube 1 APPLIC TOPICAL ×2 (09:38→21:40)
[2024-08-29] MEDS: Nystatin Powder 15gm Bottle 1 APPLIC TOPICAL ×2 (09:39→21:38)
[2024-08-29] MEDS: 0.9% Saline Lock 10 ML Syringe IV (09:44)
[2024-08-29] MEDS: Tuberculin,Purif.prot.deriv. 50 TU/ML Vial 0.1 ML ID (09:44)
[2024-08-29] MEDS: LORazepam 1 MG Tablet PO ×2 (09:49→21:48)
[2024-08-29 13:30] LABS: Iron 58 ug/dL (50-170); Iron Binding Capacity,Unsat 167 ug/dL (228-428)
[2024-08-29 13:33] LABS: Iron Binding Capacity,Total 225 ug/dL (250-450)
[2024-08-29 13:34] LABS: PERCENT IRON SATURATION 25.8 % (13-59)
--- NOTE | 2024-08-29 15:23 | PHA.CONS_ITS ---
Documented by User: Jose Alfredo Hernandez 08/29/24 16:03 TCU RX Drug Regimen Review Subjective/Objective Subjective/Objective Subjective: TCU admission note. 69 year old female with below past medical history hospitalized for fall, right distal femur fracture, underwent open r eduction retrograde intramedullary nail fixation 08/24/[address] Mcclendon, complicated by hypotension, acute blood loss anemia, admitted to TCU with debility, here for rehabilitation, strengthening, prior to discharge home with brother. Objective: Allergies pregabalin (From Lyrica) Allergy (Verified 08/23/24 10:11) SUICIDAL pentazocine lactate (From Talwin) Adverse Reaction (Verified 08/23/24 10:11) Vomiting Current Medications Generic Name Dose Route Start Last Admin Trade Name Freq PRN Reason Stop Dose Admin Acetaminophen 1,000 mg 08/28/24 22:00 08/29/24 13:00 Acetaminophen 500 Mg Tablet PO 1,000 mg Q8 ISIAH Administration Acyclovir 400 mg 08/29/24 07:45 08/29/24 13:00 Acyclovir 200 Mg Capsule PO 09/03/24 07:46 400 mg TID ISIAH Administration Albuterol Sulfate 2 puff 08/29/24 07:43 Albuterol Ih (6.7 Gm) 1 Puff Inhaler INHALATION Q4H PRN PRN DYSPNEA/WHEEZING/SOB Aspirin 81 mg 09/12/24 10:00 Aspirin 81 Mg Tab.Chew PO 09/26/24 10:01 BID ISIAH Calamine/Phenol 1 applic 08/28/24 22:00 08/29/24 09:38 Menthol/Lanolin/Calamine/Znox 113 Gm Tube TOPICAL 1 applic BID ISIAH Administration Protocol Calcium/Vitamin D 1 tablet 08/28/24 17:00 08/29/24 09:35 Calcium Carb/Vitamin D 1 Tablet Tablet PO 1 tablet BIDCM ISIAH Administration Cyclobenzaprine HCl 10 mg 08/28/24 16:43 Cyclobenzaprine Hcl 10 Mg Tablet PO TID PRN muscle spasm Duloxetine HCl 20 mg 08/29/24 10:00 08/29/24 09:36 Duloxetine Hcl 20 Mg Capsule PO 20 mg DAILY ISIAH Administration Levothyroxine Sodium 88 mcg 08/29/24 06:00 08/29/24 04:28 Levothyroxine 88 Mcg Tablet PO 88 mcg DAILY@0600 ISIAH Administration Lorazepam 1 mg 08/28/24 16:43 08/29/24 09:49 Lorazepam 1 Mg Tablet PO 1 mg Q8H PRN Administration Anxiety Magnesium Citrate 300 ml 08/28/24 20:17 Magnesium Citrate 300 Ml PO DAILY PRN Constipation Metoprolol Tartrate 50 mg 08/28/24 22:00 08/29/24 09:36 Metoprolol Tartrate 50 Mg Tablet PO 50 mg BID [facility] Administration Protocol Nicotine 14 mg 08/28/24 21:00 08/29/24 09:40 Nicotine 14 Mg Patch TD Not Given DAILY [facility] Nystatin 1 applic 08/28/24 22:00 08/29/24 09:39 Nystatin Powder 15gm Bottle TOPICAL 1 applic BID [facility] Administration Protocol Oxycodone HCl 10 mg 08/28/24 16:43 08/28/24 19:48 Oxycodone 5 Mg Tablet PO 10 mg Q4H PRN PRN Administration Pain Score 4-10 Rivaroxaban 10 mg 08/29/24 06:00 08/29/24 04:28 Rivaroxaban 10 Mg Tablet PO 09/11/24 06:01 10 mg DAILY@0600 [facility] Administration Senna/Docusate Sodium 2 tablet 08/28/24 22:00 08/29/24 09:39 Senna/Docusate Sodium 1 Tablet PO Not Given BID [facility] Sodium Chloride 10 - 40 ml 08/28/24 16:47 08/29/24 09:44 0.9% Saline Lock 10 Ml Syringe IV 10 ml UD PRN Administration SALINE FLUSH Tuberculin PPD 0.1 ml 09/05/24 10:00 Tuberculin,Purif.Prot.Deriv. 50 Tu/Ml Vial ID 09/05/24 10:01 X1 ONE Problem List Tobacco abuse (Acute) Hypothyroidism (Acute) Muscle spasm (Acute) Anxiety (Acute) Depression (Acute) Hyperlipidemia (Acute) Osteoarthritis (Acute) Fibromyalgia (Acute) Essential (primary) hypertension (Acute) Osteoporosis (Acute) Debility (Acute) Fracture of distal end of right femur (Acute) Fall (Acute) Vital Signs Temp Pulse Resp BP Pulse Ox O2 Del Method 96.8 F L 85 14 131/68 H 94 Room Air 08/29/24 09:32 08/29/24 09:36 08/29/24 08:35 08/29/24 08:35 08/29/24 08:35 08/29/24 08:35 Oxygen Delivery Method Room Air Weight: 90.673 kg Body Mass Index (BMI) 33.3 Sodium 136 mmol/L (133-145) 08/29/24 05:23 Potassium 4.4 mmol/L (3.3-5.1) 08/29/24 05:23 Chloride 104 mmol/L (98-108) 08/29/24 05:23 Carbon Dioxide 23.1 mmol/L (21.0-32.0) 08/29/24 05:23 Anion Gap 8 (5-15) 08/29/24 05:23 BUN 31 mg/dL (4-19) H 08/29/24 05:23 Creatinine 1.15 mg/dL (0.70-1.20) 08/29/24 05:23 Est GFR (MDRD) Non-Af 52 (>60) L 08/29/24 05:23 BUN/Creatinine Ratio 26.6 RATIO (10-20) H 08/29/24 05:23 Glucose 99 mg/dL (70-99) 08/29/24 05:23 Assessment/Plan: 1. Pain: acetaminophen 1000 mg PO Q8H, oxycodone 10 mg PO Q4H PRN pain (4-10). The patient has required 1 PRN dose of oxycodone so far this admission. Please continue to monitor pain levels, PRN medication usage, LFTs (AST/ALT = 94/93 U/L on 08/24/24), for respiratory depression, for ataxia/syncope/falls, for drowsines s/dizziness, and for constipation. 2. Bowel: senna/docusate 2 tablet PO BID, magnesium citrate 300 mL PO daily PRN constipation. The patient has not required any PRN doses of magnesium citrate so far this admission, and the patient's last bowel movement was documented on 08/29/24. Please continue to monitor for bowel movements, PRN medication usage, constipation and diarrhea. 3. DVT prophylaxis: rivaroxaban 10 mg PO Daily through 09/11/24, then aspirin 81 mg PO BID through 09/26. Please continue to monitor for s/s of a DVT such as pain/erythema/swelling, hemoglobin levels hemoglobin (Hgb = 7.3 g/dL on 08/29/24), platelet counts (plt = 280 K/mm3 ON 08/29/24), for s/s of bleeding/bruising, renal function (serum creatinine = 1.15 mg/dL with creatinine clearance = 52 mL/min on 08/29/24), and for GI distress with aspirin administration. 4. Hypothyroidism: levothyroxine 88 mcg PO daily. Please continue to monitor thyroid hormone levels (no recent thyroid levels documented), for hypo and hyperthyroid symptoms. Please consider ordering thyroid hormone levels if clinically indicated. 5. Hypertension: metoprolol tartrate 50 mg PO BID. Please continue to monitor blood pressures (recent range = 96-131/50-68 mmHg), heart rates (recent range = 79-96 beats/min), and for fatigue. 6. COPD: albuterol inhaler 2 puffs Q4H PRN. The patient has not required any PRN doses of albuterol so far this admission. Please continue to monitor for PRN medication usage and for shortness of breath as well as for s/s of a COPD exacerbation. 7. Muscle spasms: cyclobenzaprine 10 mg PO TID PRN muscle spasms. The patient has not required any PRN doses of cyclobenzaprine so far this admission. Please continue to monitor for muscle spasms, PRN medication usage, and drowsiness/dizziness/ataxia/syncope/falls. 8. Calcium deficiency: calcium/vitamin D 1 tablet Po BID with meals. Please continue to monitor calcium levels (Ca = 9.3 mg/dL on 08/29/24), and vitamin D levels (no recent vitamin D levels documented). 9. Skin irritation/Tinea corporis: calmoseptine 1 application topically BID, nystatin powder 1 application topically BID. Please continue to monitor for resolution of tinea corporis and for skin irritation. 10. Tobacco abuse: nicotine 14 mg patch topically daily. Please continue to monitor for nicotine cravings and for nightmares. 11. Cold sores (Per RN): acyclovir 400 mg PO TID through 09/03/24. Please continue to monitor renal function (serum creatinine = 1.15 mg/dL with creatinine clearance = 52 mL/min on 08/29/24), and for resolution of cold sores. Assessment/Plan for indications treated with psychotropic medications: 1. Depression: duloxetine 20 mg PO daily. Please see provider note regarding stable/chronic long-term therapy GDR not recommended. Monitor for diarrhea, nausea, headache, anxiety or drowsiness, suicidal thoughts or behaviors (Boxed Warning), symptoms of bleeding, symptoms of serotonin syndrome (including agitation, confusion, hyperreflexia, rigidity/myoclonus, tremor, tachycardia, tachypnea), sodium levels (last Na = 136 mmol/L on 08/29/24). 2. Lorazepam 1 mg tablet PO Q8H PRN anxiety. Please see provider not regarding stable chronic long-term use GDR not recommended. The patient has required 2 doses of PRN lorazepam so far this admission. Monitor for sedation, mental status and cognition. Monitor for falls (risk factor for falls) and implement fall prevention strategies. Monitor for respiratory depression. RR range since admission = 14-18 breaths/min. Medical chart and medication regimen reviewed. The following medication irregularities or issues were identified: NA Date Date of Note: 08/29/24 Documented by User: Dr. Edmund Salter MD 08/29/24 17:15 TCU RX Drug Regimen Review Provider Comments Provider responsibility Provider Comments to Recommendations by Pharmacy Agree
--- NOTE | 2024-08-29 15:35 | CASEMGMT ---
Social Work SW met with patient to complete initial assessment. Introduced self and role. Verified contacts. Pt does not advance directives. SW offered to complete and pt agreed, naming dtr first and son second. SW to complete prior to DC as time allows. SW educated to [facility] [place] insurance with [employer] 09/02 and continued stay is not guaranteed with each review; providing a 3-day notice for DC. Pt's goal is to return home alone at [facility]. Pt's children are supportive but both work full-time and her brother is unreliable. SW and pt spent extensive time in conversation about various topics. SW will continue to follow for DC planning and support. 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
--- NOTE | 2024-08-29 15:50 | CHAPLAIN ---
Type of Pastoral Visit _x__ Initial Visit ___ Follow-up Visit ___ On-call Visit ___ General Patient Visit ___ Spiritual Assessment ___ Family Conference ___ Bereavement ___ Rapid Response ___ Code Blue ___ Other (describe below) Pastoral Care Referral From _x__ Patient ___ Family ___ Nurse ___ Physician ___ Print Controller ___ Floorworker ___ Other (describe below) Sacrament/Intervention _x__ Active listening ___ Anointing ___ Rastafarian ___ Bereavement ___ Communion _x__ Betsy exploration ___ _x__ Life review _x__ Prayer ___ Reconciliation ___ Sacrament of Sick _x__ Supportive presence ___ Wedding ___ Other (describe below) Pastoral Comments patient is welcoming and very talkative about her life, 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
--- NOTE | 2024-08-29 17:20 | NURSING ---
dr major aware of pt + occult stool & anemia, new order to consult Dr Cox.
[2024-08-29 21:40] VITALS: BP 154/81; PULSE 110
[2024-08-29] MEDS: Albuterol IH (6.7 GM) 1 PUFF INHALER 2 PUFF INHALATION (21:44)
[2024-08-30] VITALS (12 sets, daily range): BP systolic 130–146; BP diastolic 74–93; PULSE 51–92; RESP 16–18; TEMP 35.8–36.6; O2SAT 95–100; BMI 33.3
--- NOTE | 2024-08-30 07:13 | NURSING ---
Dr Cox ordered EGD for today, notified him of pt getting 2 units blood today. changing EGD to Monday, will update pt. pt diet changed back to regular, will be NPO monday AM. jaquelin will be held monday and monday morning
[2024-08-30] MEDS: Calcium Carb/Vitamin D 1 TABLET Tablet PO ×2 (08:17→17:36)
[2024-08-30] MEDS: DULoxetine Hcl 20 MG Capsule PO (08:17)
[2024-08-30] MEDS: Nystatin Powder 15gm Bottle 1 APPLIC TOPICAL ×2 (08:18→20:20)
[2024-08-30] MEDS: Metoprolol Tartrate 50 MG Tablet PO ×2 (08:18→20:13)
[2024-08-30] MEDS: Menthol/Lanolin/Calamine/Znox 113 GM Tube 1 APPLIC TOPICAL ×2 (08:19→20:20)
[2024-08-30] MEDS: LORazepam 1 MG Tablet PO ×2 (08:21→20:12)
--- NOTE | 2024-08-30 08:26 | NURSING ---
pt off unit to infusion center for 2 units blood at this time
--- NOTE | 2024-08-30 08:38 | NURSING ---
Resident off unit to infusion center via WC.
[2024-08-30] MEDS: 0.9% Saline Lock 10 ML Syringe IV ×2 (08:42→14:11)
[2024-08-30] MEDS: Furosemide 20 MG/2 ML VIAL IV (11:31)
--- NOTE | 2024-08-30 14:15 | NURSING ---
pt returned from infusion center at [id number]
[2024-08-30] MEDS: Acyclovir 200 MG Capsule 400 MG PO ×2 (14:34→20:14)
[2024-08-30] MEDS: Acetaminophen 500 MG Tablet 1000 MG PO ×2 (14:34→20:13)
[2024-08-30] MEDS: Rivaroxaban 10 MG Tablet PO (14:35)
[2024-08-30] MEDS: Albuterol IH (6.7 GM) 1 PUFF INHALER 2 PUFF INHALATION (20:11)
[2024-08-30] MEDS: oxyCODONE 5 MG Tablet 10 MG PO (23:31)
[2024-08-31] MEDS: Levothyroxine 88 MCG Tablet PO (05:35)
[2024-08-31] MEDS: Acetaminophen 500 MG Tablet 1000 MG PO ×3 (05:35→20:31)
[2024-08-31] MEDS: Acyclovir 200 MG Capsule 400 MG PO ×3 (05:35→20:31)
[2024-08-31] MEDS: Rivaroxaban 10 MG Tablet PO (05:35)
[2024-08-31] MEDS: Calcium Carb/Vitamin D 1 TABLET Tablet PO ×2 (08:55→17:18)
[2024-08-31] MEDS: DULoxetine Hcl 20 MG Capsule PO (08:55)
[2024-08-31] MEDS: Senna/Docusate Sodium 1 Tablet 2 TABLET PO (08:55)
[2024-08-31 08:57] VITALS: BP 146/80; PULSE 94
[2024-08-31] MEDS: Nystatin Powder 15gm Bottle 1 APPLIC TOPICAL ×2 (08:57→20:20)
[2024-08-31] MEDS: Metoprolol Tartrate 50 MG Tablet PO ×2 (08:57→20:30)
[2024-08-31] MEDS: Menthol/Lanolin/Calamine/Znox 113 GM Tube 1 APPLIC TOPICAL ×2 (08:58→20:19)
[2024-08-31] MEDS: oxyCODONE 5 MG Tablet 10 MG PO ×2 (09:01→20:28)
[2024-08-31] MEDS: LORazepam 1 MG Tablet PO ×2 (13:16→23:23)
[2024-08-31 13:55] VITALS: BP 129/81; PULSE 71; RESP 16; TEMP 36.3; O2SAT 99
[2024-08-31 14:22] LABS: Hematocrit 32.3 % (37-47); Hemoglobin 10.6 g/dL (12.0-15.0)
[2024-08-31] MEDS: 0.9% Saline Lock 10 ML Syringe IV (20:17)
[2024-08-31 20:30] VITALS: BP 164/88; PULSE 80
[2024-08-31 20:35] VITALS: BP 164/88; PULSE 80
[2024-08-31 20:36] VITALS: PULSE 80; RESP 16
[2024-09-01] MEDS: Acyclovir 200 MG Capsule 400 MG PO ×3 (06:36→21:25)
[2024-09-01] MEDS: Acetaminophen 500 MG Tablet 1000 MG PO ×3 (06:37→21:25)
[2024-09-01] MEDS: oxyCODONE 5 MG Tablet 10 MG PO (06:37)
[2024-09-01] MEDS: Levothyroxine 88 MCG Tablet PO (06:37)
[2024-09-01 06:43] VITALS: RESP 16
[2024-09-01 08:35] VITALS: BP 138/73; PULSE 79
[2024-09-01] MEDS: Metoprolol Tartrate 50 MG Tablet PO ×2 (08:35→21:24)
[2024-09-01] MEDS: Calcium Carb/Vitamin D 1 TABLET Tablet PO ×2 (08:36→16:01)
[2024-09-01] MEDS: Menthol/Lanolin/Calamine/Znox 113 GM Tube 1 APPLIC TOPICAL ×2 (08:36→21:31)
[2024-09-01] MEDS: Senna/Docusate Sodium 1 Tablet 2 TABLET PO (08:36)
[2024-09-01] MEDS: DULoxetine Hcl 20 MG Capsule PO (08:36)
[2024-09-01] MEDS: Nystatin Powder 15gm Bottle 1 APPLIC TOPICAL ×2 (08:38→21:26)
[2024-09-01 08:43] VITALS: BP 138/73; PULSE 79; RESP 16; TEMP 36.9; O2SAT 98
[2024-09-01] MEDS: 0.9% Saline Lock 10 ML Syringe IV ×2 (10:40→22:20)
[2024-09-01 10:53] VITALS: BP 138/93; PULSE 66; RESP 18; TEMP 36.9; O2SAT 95
--- NOTE | 2024-09-01 11:06 | NURSING ---
Pt C/O of dizziness when standing with nausea and vomiting. Pt BP taken while sitting 138/93 and standing 153/[address] Salter updated N.O. received for CBC w/diff, BMP, Meclizine 25mg TID for Dizziness and 1L bolus of NS after labs are drawn. Orders read back.
--- NOTE | 2024-09-01 11:08 | NURSING ---
Per Pt request would only like 5 mg of Oxycodone instead of 10mg. Dr. Salter updated N.O. received to decrease Oxycodone to 5mg. Order read back.
[2024-09-01] MEDS: Meclizine HCl 25 MG Tablet PO (11:38)
[2024-09-01 11:56] LABS: Anion Gap 10 (5-15); BUN 23 mg/dL (4-19); BUN/Creat Ratio 21.8 RATIO (10-20); Calcium,Total 9.3 mg/dL (7.6-11.0); Carbon Dioxide 22.2 mmol/L (21.0-32.0); Chloride 104 mmol/L (98-108); Creatinine, Serum 1.04 mg/dL (0.70-1.20); EST Glomerular Filtration Rate 59 (>60); Glucose 92 mg/dL (70-99); Potassium 3.8 mmol/L (3.3-5.1); Sodium Level 136 mmol/L (133-145)
[2024-09-01 12:00] LABS: Absolute Neutrophil Count 5.9 X10^3/uL (2.0-7.7); Basophil# 0.07 X10^3/uL; Basophil% 0.8 % (0-1); Eosinophil# 0.56 X10^3/uL; Eosinophils% 6.6 % (0-5); Hematocrit 35.3 % (37-47); Hemoglobin 11.7 g/dL (12.0-15.0); Lymphocyte % 15.3 % (19-41); Mean Corp Hgb Conc 33.1 g/dL (32-36); Mean Corpuscular Hgb 28.5 pg (27.0-32.0); Mean Corpuscular Volume 85.9 fL (81-99); Mean Platelet Vol. 8.9 fl (6.2-12.0); Monocyte# 0.55 X10^3/uL; Monocyte% 6.5 % (0-10); NRBC Flagged by Analyzer 0 % (0-5); Neutrophil % 69.6 % (47-70); Platelet Count 530 K/mm3 (150-450); RBC Distribution Width SD 47.8 fl (35.1-43.9); Red Blood Count 4.11 M/mm3 (4.2-5.4); White Blood Count 8.5 K/mm3 (4.4-11.0)
[2024-09-01] MEDS: 0.9% Normal Saline (1000mL) 1,000 ML 999 ML IV (12:42)
[2024-09-01] MEDS: LORazepam 1 MG Tablet PO (16:01)
[2024-09-01] MEDS: oxyCODONE 5 MG Tablet PO (21:22)
[2024-09-01 21:24] VITALS: BP 140/84; PULSE 89
[2024-09-01 21:37] VITALS: BP 140/84; PULSE 89
[2024-09-02] MEDS: LORazepam 1 MG Tablet PO ×2 (00:04→17:19)
[2024-09-02] MEDS: Levothyroxine 88 MCG Tablet PO (06:43)
[2024-09-02] MEDS: Acetaminophen 500 MG Tablet 1000 MG PO ×3 (06:43→21:46)
[2024-09-02] MEDS: oxyCODONE 5 MG Tablet PO ×3 (06:56→21:40)
[2024-09-02 09:21] VITALS: BP 139/79; PULSE 77; RESP 16; TEMP 36.3; O2SAT 97
[2024-09-02 09:23] VITALS: PULSE 77
[2024-09-02] MEDS: Metoprolol Tartrate 50 MG Tablet PO ×2 (09:23→21:46)
[2024-09-02] MEDS: Nystatin Powder 15gm Bottle 1 APPLIC TOPICAL ×2 (09:24→21:50)
[2024-09-02] MEDS: Menthol/Lanolin/Calamine/Znox 113 GM Tube 1 APPLIC TOPICAL ×2 (09:25→21:50)
[2024-09-02 09:27] VITALS: BP 139/79; PULSE 77; RESP 16; TEMP 36.3; O2SAT 97; BMI 33.3
--- NOTE | 2024-09-02 10:30 | NURSING ---
pt remains NPO since midnight for EGD today, endo to pick pt up at 11:15am
[2024-09-02] MEDS: Albuterol IH (6.7 GM) 1 PUFF INHALER 2 PUFF INHALATION (11:07)
--- NOTE | 2024-09-02 11:15 | NURSING ---
pt off unit via bed to endo at this time
--- NOTE | 2024-09-02 12:14 | NURSING ---
Estimate Clerk Note; Activities Asset: Jc Rivera is independent in her choice of daily activities w/reminders. Her family will visits, she has her smartphone, will read, watch tv and welcomes visits from the therapy dog. Staff will encourage social activities, remind her of weekly activities and respect her right to say no.
--- NOTE | 2024-09-02 13:07 | CASEMGMT ---
Social Work SW completed advance directives with pt. Original and copies provided to pt. Copy placed on chart. Tiff Pathak MEDICAL STAFF CREDENTIALING COORDINATOR PERSONAL INJURY SPECIALIST
--- NOTE | 2024-09-02 13:41 | HP.PCM_ITS ---
HPI - General General Date of Admission: 08/28/24 Date of Service: 09/02/24 Chief Complaint: Anemia HPI Narrative ALAN CM, is a 69-year-old female who presented to [facility] ED on 08/23/24 with right hip pain after a fall at home. S/p ORIF with intramedullary nail placement on 08/24. Patient discharged to SNF at [facility] in stable condition on 08/27. Her hemoglobin 10.3 on admit, dropped to 7.5 postoperatively. Her hemoglobin has been persistently down and she was Hemoccult positive stool in the setting of anticoagulation. [facility] Medical History (Updated 09/02/24 @ 13:[address] Pope Friend, DO) Wears dentures Wears glasses MRSA infection Post-menopausal Alcohol use Thyroid disease Kidney stones Anemia Back pain Injury of back Migraine headache Gastric reflux COPD (chronic obstructive pulmonary disease) History of stress test Anxiety and depression Osteoporosis Smoker Bone spur of foot Hypertension Arthritis Chronic low back pain Fibromyalgia Home Medications ?Medication ?Instructions ?Recorded ?Last Taken ?Type lorazepam 1 mg tablet 1 mg PO Q8H PRN Anxiety 11/0 09/1508/22/24 History albuterol sulfate 90 mcg/actuation 2 puff inhalation Q 4H PRN wheezing 08/23/24 08/22/24 History aerosol inhaler cyclobenzaprine 10 mg tablet 10 mg PO TID PRN muscle s pasm 08/23/24 08/22/24 History duloxetine 20 mg capsule,delayed 20 mg PO DAILY Mood 0 08/23/24 08/23/24 History release levothyroxine 88 mcg tablet 88 mcg PO DAILY Thyroid 09/02/24 History metoprolol tartrate 50 mg tablet 50 mg PO BID BP 08/2309/02/24 History calcium 500 mg (as 1 tab PO BIDCM Supplement #0 tabs 08/27/24 Unknown Rx carbonate)-vitamin D3 5 mcg (200 unit) tablet (Oyster Shell Calcium-Vitamin D3) oxycodone 5 mg tablet 10 mg (2 x 5 mg) PO Q4H PRN PRN 08/27/24 09/02/24 Rx Pain Score 4-10 #0 tabs rivaroxaban 10 mg tablet (Xarelto) 10 mg PO DAILY@0600 Blood Thinner 08/27/24 08/31/24 Rx 14 days #0 tabs Allergy/AdvReac Type Severity Reaction Status Date / Time pregabalin (From Lyrica) Allergy SUICIDAL Verified 09/02/24 11:32 pentazocine lactate (From AdvReac Vomiting Verified 09/02/24 11:32 Celso) Surgical History History of nasal surgery History of bunionectomy Hx of foot surgery History of carpal tunnel repair History of hysterectomy Social History household members: family and other details: Brother lives upstairs. Smoking Status: Current every day smoker tobacco type: cigarettes alcohol intake: never substance use type: does not use ROS Constitutional Constitutional: Denies fatigue, fever(s), poor appetite, weight gain or weight loss Gastrointestinal Gastrointestinal: Denies belching, bloating, change in bowel habits, change in stool character, chewing difficulty, coffee ground emesis, constipation, cramping, diarrhea, dyspepsia, dysphagia, early satiety, excessive flatus, fecal incontinence, heartburn, hematemesis, hematochezia, hemorrhoids, loose stools, melena, nausea, odynophagia, rectal bleeding, tenesmus, vomiting or weight changes Vital Signs Vital Signs Vital Signs: 09/01/24 21:24 09/01/24 21:37 09/02/24 09:21 Temperature 97.3 F L Temperature Source Temporal Pulse Rate 89 89 77 Respiratory Rate 16 Blood Pressure 140/84 H 140/84 H 139/79 H Blood Pressure Mean 102 99 Blood Pressure Source Monitor Monitor Blood Pressure Position Semi-Fowlers Sitting Blood Pressure Location Left Arm Right Arm Pulse Ox 97 Oxygen Delivery Method Room Air 09/02/24 09:23 09/02/24 09:27 Temperature 97.3 F L Temperature Source Temporal Pulse Rate 77 77 Respiratory Rate 16 Blood Pressure 139/79 H Blood Pressure Mean 99 Blood Pressure Source Monitor Blood Pressure Position Sitting Blood Pressure Location Right Arm Pulse Ox 97 Oxygen Delivery Method Room Air Weight Weight: 199 lb 14.396 oz Body Mass Index (BMI) 33.3 Physical Exam Const alert, oriented x3, no apparent distress and healthy appearing General Appearance: cooperative GI normal to inspection, nondistended, normoactive bowel sounds, soft to palpation, non-tender and non-distended Percussion: normal to percussion Rectal Exam: deferred Results Lab / Micro Data 09/01/24 11:25 09/01/24 11:25 Assessment & Plan Assessment/Plan (1) Hypothyroidism: (2) Tobacco abuse: (3) Anemia: PLAN: Plan 69 year old female with below past medical history hospitalized for fall, right distal femur fracture, underwent ORIF on 08/24/2024 acute blood loss anemia currently on Xarelto. She will undergo endoscopic evaluation. She was explained alternatives, risk and benefits include not withstanding bleeding, infection, sepsis, perforation, need for charge and . She will have an ASA of 3. *
--- NOTE | 2024-09-02 14:57 | NURSING ---
endo nurse called & reported EGD negative, pt can return to regular diet.
--- NOTE | 2024-09-02 15:10 | NURSING ---
pt returned from endo
[2024-09-02] MEDS: DULoxetine Hcl 20 MG Capsule PO (15:20)
[2024-09-02] MEDS: Acyclovir 200 MG Capsule 400 MG PO ×2 (15:20→21:46)
[2024-09-02] MEDS: Calcium Carb/Vitamin D 1 TABLET Tablet PO (17:19)
[2024-09-02] MEDS: cycloBENZAPRine HCl 10 MG Tablet PO (21:41)
[2024-09-02 21:46] VITALS: PULSE 80
[2024-09-02] MEDS: Arthritis Pain Compound 60 CLICK TUBE TOPICAL (21:50)
[2024-09-03] MEDS: Acetaminophen 500 MG Tablet 1000 MG PO ×3 (05:41→20:12)
[2024-09-03] MEDS: Levothyroxine 88 MCG Tablet PO (05:41)
[2024-09-03] MEDS: oxyCODONE 5 MG Tablet PO ×3 (05:43→20:11)
[2024-09-03] MEDS: cycloBENZAPRine HCl 10 MG Tablet PO ×2 (05:43→20:11)
[2024-09-03] MEDS: Acyclovir 200 MG Capsule 400 MG PO (05:51)
[2024-09-03] MEDS: Rivaroxaban 10 MG Tablet PO (06:01)
[2024-09-03 08:38] VITALS: BP 124/65; PULSE 85; RESP 16; TEMP 36.2; O2SAT 98
[2024-09-03] MEDS: Calcium Carb/Vitamin D 1 TABLET Tablet PO ×2 (08:41→17:40)
[2024-09-03 08:42] VITALS: PULSE 85
[2024-09-03] MEDS: Metoprolol Tartrate 50 MG Tablet PO ×2 (08:42→20:13)
[2024-09-03] MEDS: Arthritis Pain Compound 60 CLICK TUBE TOPICAL ×2 (08:42→20:13)
[2024-09-03] MEDS: Nystatin Powder 15gm Bottle 1 APPLIC TOPICAL ×2 (08:42→20:15)
[2024-09-03] MEDS: Menthol/Lanolin/Calamine/Znox 113 GM Tube 1 APPLIC TOPICAL ×2 (08:43→20:15)
[2024-09-03] MEDS: DULoxetine Hcl 20 MG Capsule PO (10:36)
[2024-09-03] MEDS: Senna/Docusate Sodium 1 Tablet 2 TABLET PO (10:39)
[2024-09-03 10:43] VITALS: BMI 32.2
[2024-09-03] MEDS: LORazepam 1 MG Tablet PO (15:19)
[2024-09-03 20:13] VITALS: PULSE 73
[2024-09-04] MEDS: oxyCODONE 5 MG Tablet PO ×3 (04:40→22:16)
[2024-09-04] MEDS: cycloBENZAPRine HCl 10 MG Tablet PO ×2 (04:41→22:26)
[2024-09-04] MEDS: Acetaminophen 500 MG Tablet 1000 MG PO ×3 (04:41→22:30)
[2024-09-04] MEDS: Levothyroxine 88 MCG Tablet PO (04:41)
[2024-09-04] MEDS: Rivaroxaban 10 MG Tablet PO (04:42)
--- NOTE | 2024-09-04 08:31 | NURSING ---
Order Department Supervisor Note; MDA for 09/04/2024 Complete
[2024-09-04 09:55] VITALS: BP 125/72; PULSE 80
[2024-09-04] MEDS: Metoprolol Tartrate 50 MG Tablet PO ×2 (09:55→22:32)
[2024-09-04] MEDS: Calcium Carb/Vitamin D 1 TABLET Tablet PO ×2 (09:55→16:37)
[2024-09-04] MEDS: DULoxetine Hcl 20 MG Capsule PO (09:55)
[2024-09-04] MEDS: Arthritis Pain Compound 60 CLICK TUBE TOPICAL ×2 (09:55→22:31)
[2024-09-04] MEDS: Nystatin Powder 15gm Bottle 1 APPLIC TOPICAL ×2 (09:56→22:32)
[2024-09-04] MEDS: Menthol/Lanolin/Calamine/Znox 113 GM Tube 1 APPLIC TOPICAL ×2 (09:58→22:37)
[2024-09-04] MEDS: LORazepam 1 MG Tablet PO (09:59)
[2024-09-04 10:01] VITALS: BP 125/72; PULSE 80; RESP 16; TEMP 36.1; O2SAT 98
--- NOTE | 2024-09-04 10:42 | CASEMGMT ---
Social Work IDT met with patient at bedside and dtr via conference call for care plan meeting. Discussed patient's progress in PT/OT/SN. Educated to [facility] insurance with NRD 09/09 and continued stay is not guaranteed with each review. Provided pt/family with written communication of insurance process and copay coverage during stay. Pt's goal is to return home alone at [facility]. Pt has f/u appt on 09/09. Pt is requesting [facility] d/t being homebound and not being able to drive initially. Discussed pt's need for FWW and [place]. SW to coordinate at [place]. SW will continue to follow for DC planning. Tiff Pathak FACING END TRIMMER OPTIMIZATION MANAGER
--- NOTE | 2024-09-04 15:29 | CASEMGMT ---
Social Work- SW met with pt to complete BIMS assessment. SW introduced self and role; pt agreeable to meet. Pt scored 14/15 on BIMS. Pt scored 3/9 on PHQ9. Pt reports that she is independent and wants to be at home doing things her way, but feels that she is tough and will get through this. Pt denied needing any discussion on coping skills or mental health supports. SW remains available to follow. ADELA Taylor
[2024-09-04 22:00] VITALS: BP 159/84; PULSE 74
[2024-09-04 22:32] VITALS: BP 159/84; PULSE 74
[2024-09-04 22:39] VITALS: RESP 16
[2024-09-05] MEDS: LORazepam 1 MG Tablet PO ×2 (03:05→15:13)
[2024-09-05 05:29] LABS: Absolute Lymphocyte Count 2.31 X10^3/uL (0.83-4.51); Absolute Neutrophil Count 3.6 X10^3/uL (2.0-7.7); Basophil% 1.4 % (0-1); Eosinophil# 0.62 X10^3/uL; Eosinophils% 8.7 % (0-5); Hematocrit 35.9 % (37-47); Hemoglobin 11.5 g/dL (12.0-15.0); Lymphocyte # 2.31 X10^3/ul (0.83-4.51); Lymphocyte % 32.4 % (19-41); Mean Corpuscular Volume 87.3 fL (81-99); Mean Platelet Vol. 8.5 fl (6.2-12.0); Monocyte# 0.47 X10^3/uL; Monocyte% 6.6 % (0-10); NRBC Flagged by Analyzer 0 % (0-5); Neutrophil # 3.57 X10^3/uL (2.7-7.7); Neutrophil % 50.1 % (47-70); Platelet Count 513 K/mm3 (150-450); RBC Distribution Width SD 49.5 fl (35.1-43.9); Red Blood Count 4.11 M/mm3 (4.2-5.4); White Blood Count 7.1 K/mm3 (4.4-11.0)
[2024-09-05 05:59] LABS: Anion Gap 9 (5-15); BUN 27 mg/dL (4-19); BUN/Creat Ratio 25.1 RATIO (10-20); Calcium,Total 9.3 mg/dL (7.6-11.0); Carbon Dioxide 23.2 mmol/L (21.0-32.0); Chloride 106 mmol/L (98-108); Creatinine, Serum 1.06 mg/dL (0.70-1.20); EST Glomerular Filtration Rate 57 (>60); Estimated Creatinine Clearance 55.59 ml/min (50-250); Glucose 89 mg/dL (70-99); Potassium 4.2 mmol/L (3.3-5.1); Sodium Level 138 mmol/L (133-145)
[2024-09-05] MEDS: Rivaroxaban 10 MG Tablet PO (06:36)
[2024-09-05] MEDS: Acetaminophen 500 MG Tablet 1000 MG PO ×3 (06:37→21:16)
[2024-09-05] MEDS: Levothyroxine 88 MCG Tablet PO (06:37)
[2024-09-05 06:38] VITALS: RESP 16
[2024-09-05] MEDS: Calcium Carb/Vitamin D 1 TABLET Tablet PO ×2 (09:47→18:19)
[2024-09-05] MEDS: DULoxetine Hcl 20 MG Capsule PO (09:47)
[2024-09-05] MEDS: oxyCODONE 5 MG Tablet PO ×2 (09:47→21:11)
[2024-09-05 09:48] VITALS: BP 115/86; PULSE 77
[2024-09-05] MEDS: Metoprolol Tartrate 50 MG Tablet PO ×2 (09:48→21:12)
[2024-09-05] MEDS: Nystatin Powder 15gm Bottle 1 APPLIC TOPICAL ×2 (09:48→21:16)
[2024-09-05] MEDS: Menthol/Lanolin/Calamine/Znox 113 GM Tube 1 APPLIC TOPICAL ×2 (09:50→21:17)
[2024-09-05 09:52] VITALS: BP 115/86; PULSE 77; RESP 16; TEMP 36.4; O2SAT 98
[2024-09-05] MEDS: Tuberculin,Purif.prot.deriv. 50 TU/ML Vial 0.1 ML ID (13:09)
[2024-09-05 21:12] VITALS: BP 109/73; PULSE 78
[2024-09-05] MEDS: cycloBENZAPRine HCl 10 MG Tablet PO (21:20)
[2024-09-05 21:28] VITALS: BP 109/73; PULSE 78
[2024-09-06] MEDS: oxyCODONE 5 MG Tablet PO ×3 (02:58→21:40)
[2024-09-06] MEDS: LORazepam 1 MG Tablet PO ×3 (04:57→23:39)
[2024-09-06] MEDS: Acetaminophen 500 MG Tablet 1000 MG PO ×3 (04:57→21:39)
[2024-09-06] MEDS: Rivaroxaban 10 MG Tablet PO (04:57)
[2024-09-06] MEDS: Levothyroxine 88 MCG Tablet PO (04:57)
[2024-09-06 09:22] VITALS: BP 127/71; PULSE 78; RESP 17; TEMP 36.6; O2SAT 97
[2024-09-06] MEDS: MENTHOL 226.8 GM JAR 1 APPLIC TOPICAL ×2 (09:27→20:08)
[2024-09-06] MEDS: DULoxetine Hcl 20 MG Capsule PO (09:28)
[2024-09-06] MEDS: Calcium Carb/Vitamin D 1 TABLET Tablet PO ×2 (09:28→17:27)
[2024-09-06] MEDS: Menthol/Lanolin/Calamine/Znox 113 GM Tube 1 APPLIC TOPICAL ×2 (09:28→21:42)
[2024-09-06 09:29] VITALS: PULSE 78
[2024-09-06] MEDS: Metoprolol Tartrate 50 MG Tablet PO ×2 (09:29→21:39)
[2024-09-06] MEDS: Nystatin Powder 15gm Bottle 1 APPLIC TOPICAL ×2 (09:29→21:40)
[2024-09-06 19:55] VITALS: PULSE 76; O2SAT 97
[2024-09-06 21:39] VITALS: BP 141/72; PULSE 75
[2024-09-06] MEDS: cycloBENZAPRine HCl 10 MG Tablet PO (21:40)
[2024-09-07] MEDS: Rivaroxaban 10 MG Tablet PO (05:27)
[2024-09-07] MEDS: Levothyroxine 88 MCG Tablet PO (05:27)
[2024-09-07] MEDS: Acetaminophen 500 MG Tablet 1000 MG PO ×3 (05:27→21:06)
[2024-09-07] MEDS: cycloBENZAPRine HCl 10 MG Tablet PO (05:35)
[2024-09-07] MEDS: oxyCODONE 5 MG Tablet PO ×3 (05:35→21:10)
[2024-09-07 05:42] VITALS: PULSE 67; O2SAT 96
--- NOTE | 2024-09-07 06:54 | NURSING ---
50 usman removed from RLE per order. 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 Pt tolerated removal well and denies any pain/discomfort at this time.
[2024-09-07 08:49] VITALS: BP 119/64; PULSE 84; RESP 17; TEMP 36.4; O2SAT 95
[2024-09-07] MEDS: Calcium Carb/Vitamin D 1 TABLET Tablet PO ×2 (08:57→17:44)
[2024-09-07] MEDS: Menthol/Lanolin/Calamine/Znox 113 GM Tube 1 APPLIC TOPICAL ×2 (08:58→21:07)
[2024-09-07] MEDS: DULoxetine Hcl 20 MG Capsule PO (08:58)
[2024-09-07 08:59] VITALS: PULSE 84
[2024-09-07] MEDS: Nystatin Powder 15gm Bottle 1 APPLIC TOPICAL ×2 (08:59→21:06)
[2024-09-07] MEDS: Metoprolol Tartrate 50 MG Tablet PO ×2 (08:59→21:05)
[2024-09-07] MEDS: LORazepam 1 MG Tablet PO ×2 (09:00→21:09)
[2024-09-07 21:05] VITALS: BP 120/67; PULSE 82
[2024-09-08] MEDS: Levothyroxine 88 MCG Tablet PO (04:27)
[2024-09-08] MEDS: Acetaminophen 500 MG Tablet 1000 MG PO ×3 (04:27→21:09)
[2024-09-08] MEDS: Rivaroxaban 10 MG Tablet PO (04:27)
[2024-09-08] MEDS: MENTHOL 226.8 GM JAR 1 APPLIC TOPICAL ×3 (04:28→21:05)
[2024-09-08] MEDS: Senna/Docusate Sodium 1 Tablet 2 TABLET PO (04:35)
[2024-09-08 08:25] VITALS: BP 124/78; PULSE 82; RESP 17; TEMP 36.3; O2SAT 97
[2024-09-08] MEDS: Calcium Carb/Vitamin D 1 TABLET Tablet PO ×2 (08:30→16:00)
[2024-09-08 08:31] VITALS: PULSE 82
[2024-09-08] MEDS: Metoprolol Tartrate 50 MG Tablet PO ×2 (08:31→21:09)
[2024-09-08] MEDS: Menthol/Lanolin/Calamine/Znox 113 GM Tube 1 APPLIC TOPICAL ×2 (08:31→21:13)
[2024-09-08] MEDS: DULoxetine Hcl 20 MG Capsule PO (08:31)
[2024-09-08] MEDS: oxyCODONE 5 MG Tablet PO ×2 (08:32→21:05)
[2024-09-08] MEDS: LORazepam 1 MG Tablet PO ×2 (08:32→21:05)
[2024-09-08] MEDS: Nystatin Powder 15gm Bottle 1 APPLIC TOPICAL ×2 (08:32→21:13)
[2024-09-08 21:09] VITALS: BP 149/86; PULSE 76
[2024-09-09] MEDS: cycloBENZAPRine HCl 10 MG Tablet PO ×2 (03:34→19:54)
--- NOTE | 2024-09-09 04:30 | CASEMGMT ---
Social Work SW spoke with pt to discuss DC plans. Pt is requesting to DC home on 09/11. IDT is agreeable. Pt is now PWB and feels she will do better at home. Son can transport at DC at 1100. SW confirmed previously discussed needs for FWW and 3-in-1 commode, and skilled HHC. Pt confirmed. SW provided list of skilled HHC agencies within geographical area, INN with insurance, that include quality and resource data via [employer] guide. Pt selected [facility]. ADAN educated HHC agency will contact pt for SOC date date, but typically 2-3 days after DC, pending PCP signing orders. ADAN educated DME will be delivered to the room prior to DC. Pt appreciative. - ADAN phoned referral to [facility] for PT/OT/SN. ADAN sent referral to [facility] via [employer]. Plan: DC home alone 09/11, [facility] PT/OT/SN, FWW, 3-in-1 commode. Tiff Pathak COMPRESSION MOLDING MACHINE OPERATOR PIPELAYING FITTER
[2024-09-09] MEDS: Levothyroxine 88 MCG Tablet PO (05:40)
[2024-09-09] MEDS: Acetaminophen 500 MG Tablet 1000 MG PO ×3 (05:40→19:57)
[2024-09-09] MEDS: Rivaroxaban 10 MG Tablet PO (05:40)
[2024-09-09] MEDS: MENTHOL 226.8 GM JAR 1 APPLIC TOPICAL ×2 (05:46→19:47)
[2024-09-09 05:50] VITALS: PULSE 70; RESP 16; O2SAT 99
[2024-09-09 09:18] VITALS: BP 117/68; PULSE 86
[2024-09-09] MEDS: Metoprolol Tartrate 50 MG Tablet PO ×2 (09:18→19:57)
[2024-09-09] MEDS: DULoxetine Hcl 20 MG Capsule PO (09:18)
[2024-09-09] MEDS: Calcium Carb/Vitamin D 1 TABLET Tablet PO ×2 (09:19→17:18)
[2024-09-09] MEDS: Nystatin Powder 15gm Bottle 1 APPLIC TOPICAL ×2 (09:19→19:52)
[2024-09-09] MEDS: oxyCODONE 5 MG Tablet PO ×2 (09:21→19:47)
[2024-09-09] MEDS: Menthol/Lanolin/Calamine/Znox 113 GM Tube 1 APPLIC TOPICAL ×2 (09:22→19:55)
[2024-09-09 09:23] VITALS: BP 117/68; PULSE 86; RESP 16; TEMP 36.7; O2SAT 98
--- NOTE | 2024-09-09 09:30 | NURSING ---
Pt's granddaughter transporting pt to [facility] for F/U appt. Wallet given to pt from lock box per pt request.
--- NOTE | 2024-09-09 12:27 | NURSING ---
Returned from orthopedic follow-up. Order to progress to 50% WB RLE. Focus on ROM to right knee. Stop xarelto, start aspirin 81mg BID x14 days starting 09/10/24. Follow-up with Dr. Mcclendon in 4 weeks.
[2024-09-09] MEDS: LORazepam 1 MG Tablet PO ×2 (12:32→23:46)
[2024-09-09] MEDS: Senna/Docusate Sodium 1 Tablet 2 TABLET PO (19:54)
[2024-09-09 19:57] VITALS: BP 125/62; PULSE 83
[2024-09-09 19:58] VITALS: BP 125/62; PULSE 83
[2024-09-10] MEDS: Levothyroxine 88 MCG Tablet PO (06:04)
[2024-09-10] MEDS: Acetaminophen 500 MG Tablet 1000 MG PO ×3 (06:04→21:43)
[2024-09-10] MEDS: oxyCODONE 5 MG Tablet PO ×2 (08:30→17:16)
[2024-09-10] MEDS: LORazepam 1 MG Tablet PO ×2 (08:31→17:16)
[2024-09-10] MEDS: Aspirin 81 MG TAB.CHEW PO ×2 (08:32→21:44)
[2024-09-10 08:33] VITALS: PULSE 70
[2024-09-10] MEDS: Calcium Carb/Vitamin D 1 TABLET Tablet PO ×2 (08:33→17:16)
[2024-09-10] MEDS: Metoprolol Tartrate 50 MG Tablet PO ×2 (08:33→21:45)
[2024-09-10] MEDS: DULoxetine Hcl 20 MG Capsule PO (08:33)
[2024-09-10] MEDS: Nystatin Powder 15gm Bottle 1 APPLIC TOPICAL ×2 (08:35→21:44)
[2024-09-10] MEDS: Menthol/Lanolin/Calamine/Znox 113 GM Tube 1 APPLIC TOPICAL ×2 (08:37→21:44)
--- NOTE | 2024-09-10 09:02 | MDS.RN ---
Information for the MDS was obtained from review of the clinical record, interview of resident, staff, and direct observation of resident?s care.
[2024-09-10 11:36] VITALS: BMI 31.3
--- NOTE | 2024-09-10 14:15 | NURSING ---
Offered covid vaccine, VIS provided. Declines at this time.
--- NOTE | 2024-09-10 15:57 | CASEMGMT ---
Social Work SW completed BIMS () and PHQ-2 () for MDS assessment. Tiff Pathak MAINTENANCE WORKER MILL WORKER
--- NOTE | 2024-09-10 20:34 | PCM.DC.SUM ---
Providers Date of Admission: 08/28/24 Primary Care Physician: Dr. Juan Lr, DO Consultations 08/29/24 17:15 Consult: Gastroenterology Routine Consulting Provider: [facility] Reason for Consult: Anemia, +Hemoccult. EMERGENT Consult: No MD Notified: Yes Date Notified: 08/29/24 Time Notified: 17:16 Method of Notification: Text Reason For Visit: RIGHT FEMUR FRACTURE Diagnosis Discharge Diagnosis (1) Hypothyroidism: Status: Acute Code(s): E03.9 - Hypothyroidism, unspecified (2) Tobacco abuse: Status: Acute Code(s): Z72.0 - Tobacco use (3) Anemia: Status: Acute Code(s): D64.9 - Anemia, unspecified Plan 69 year old female with below past medical history hospitalized for fall, right distal femur fracture, underwent open reduction retrograde intramedullary nail fixation 08/24/[address] Mcclendon, complicated by hypotension, acute blood loss anemia, admitted to TCU with debility, here for rehabilitation, strengthening, prior to discharge home with brother. Debility - PT/OT. Pain - Tylenol 1000mg q8, Oxycodone 10mg q4 prn pain (4-10). Bowel - senna/colace 2 tablets bid, Magnesium citrate 300mL daily prn. Adult immunization - Administer pneumonia vaccine, covid vaccine, flu vaccine as appropriate. DVT prophylaxis - Xarelto 10mg daily thru 09/12/2024, then Aspirin 81mg bid 09/13/2024 thru 09/26/2024. COPD - Albuterol 2 puffs q4 prn. Calcium deficiency - Calcium D 1 tablet bidcm. Muscle spasm - Flexeril 10mg tid prn. Hypothyroidism - Levothyroxine 88mcg daily. Skin irritation - Calmoseptine topical bid. Hypertension - Metoprolol 50mg bid. Tinea Corporis - Nystatin topical bid. Tobacco abuse - Nicotine 14mg patch td daily. The following psychotropic medication was present on admission: Duloxetine 20mg. Psychotropic medication therapy is indicated for a diagnosis of: Major Depression. Based on my clinical evaluation, continuation of the medication is necessary at this time. Gradual dose reduction plan (select one): ____ GDR will be attempted. Will monitor patient symptoms and behaviors in response to GDR. __x__ GRD contraindicated. Reason contraindicated: stable chronic skilled nursing use. The following psychotropic medication was present on admission: Lorazepam 1mg q8 prn. Psychotropic medication therapy is indicated for a diagnosis of: Anxiety Based on my clinical evaluation, continuation of the medication is necessary at this time. Gradual dose reduction plan (select one): ____ GDR will be attempted. Will monitor patient symptoms and behaviors in response to GDR. __x__ GRD contraindicated. Reason contraindicated: stable chronic skilled nursing use. Medications at Discharge Home Medications lorazepam 1 mg tablet 1 mg PO Q8H PRN Anxiety 03/05/18 albuterol sulfate 90 mcg/actuation aerosol inhaler 2 puff inhalation Q4H PRN wheezing 08/23/24 cyclobenzaprine 10 mg tablet 10 mg PO TID PRN muscle spasm 08/23/24 duloxetine 20 mg capsule,delayed release 20 mg PO DAILY Mood 08/23/24 levothyroxine 88 mcg tablet 88 mcg PO DAILY Thyroid 08/23/24 metoprolol tartrate 50 mg tablet 50 mg PO BID BP 08/23/24 calcium 500 mg (as carbonate)-vitamin D3 5 mcg (200 unit) tablet (Oyster Shell Calcium-Vitamin D3) 1 tab PO BIDCM Supplement #0 tabs 08/27/24 acetaminophen 500 mg tablet 1,000 mg (2 x 500 mg) PO Q8 #0 tabs 09/10/24 aspirin 81 mg chewable tablet 81 mg PO BID 14 days #0 tabs 09/10/24 nicotine 14 mg/24 hr daily transdermal patch 14 mg transdermal 2100 30 days #30 ea 09/10/24 oxycodone 5 mg tablet 5 mg PO Q4H PRN PRN Pain Score 4-10 7 days #42 tabs 09/10/24 sennosides 8.6 mg-docusate sodium 50 mg tablet (Stimulant Laxative Plus) 2 tab PO BID PRN Constipation 30 days #120 tabs 09/10/24 Hospital Course Operations - (See below.) Procedures EGD Summary of Care Provided Minutes Spent on Discharge: 35 Hospital Course: 69 year old female with below past medical history hospitalized for fall, right distal femur fracture, underwent open reduction retrograde intramedullary nail fixation 08/24/[address] Mcclendon, complicated by hypotension, acute blood loss anemia, admitted to TCU with debility, here for rehabilitation, strengthening, prior to discharge home with brother. 09/02/2024 Dr. Cox EGD: Impressions : - Normal esophagus. - No gross lesions in the entire stomach. - No gross lesions in the entire examined duodenum. - No specimens collected. Recommendations : - Discharge patient to home. - Resume previous diet. - Continue present medications. Discharge home alone 09/11/2024, [facility] PT/OT/SN, FWW, 3-in-1 commode. FWW: Patient is unsafe to use a cane and requires a walker for ambulation in the home and the community. 3-in-1 commode: Patient is confined to a single room unable to safely access toilet. Patient is confined to one level of the home environment and there is no toilet on that level. Physical Exam Const alert General Appearance: cooperative HEENT normocephalic Eyes PERRL and EOMs intact bilaterally Neck supple, no JVD and no carotid bruits Resp normal respiratory effort, normal air movement and clear to auscultation bilaterally Cardio regular rate and regular rhythm GI normal to inspection, nondistended, normoactive bowel sounds, non-tender and non-distended Extremity normal capillary refill General Extremity: Negative for edema Skin no rashes or lesions noted General Skin Exam: no breakdown Psych affect normal Appearance: appropriate Weight / BMI Weight Weight: 85.321 kg Body Mass Index (BMI) 31.3 ABG / Lab / Microbiology Data 09/05/24 05:20 09/05/24 05:20 Microbiology: Microbiology 08/29/24 09:30 Stool Stool Occult Blood (RHONDA) - Final Occult Blood Positive D/C Instructions Discharge Diet: No restrictions Discharge Activity: Return to Normal Activity, May Shower and Use Walker Weight Bearing Status: Weight bearing as tolerated Call your doctor if you observe: Fever of 101 or Higher, Inability to urinate, Inability to have a bowel movement, Shortness of breath, Dizziness, Fainting spells, Swelling in the ankles, Chest pain and Uncontrolled pain DC O2, CPAP, BIPAP Needs Home O2 Discharge instructions: No Additional Instructions: Discharge home alone 09/11/2024, [facility] PT/OT/SN, FWW, 3-in-1 commode. FWW: Patient is unsafe to use a cane and requires a walker for ambulation in the home and the community. 3-in-1 commode: Patient is confined to a single room unable to safely access toilet. Patient is confined to one level of the home environment and there is no toilet on that level. Please Follow Up With: Brody WANG When: As scheduled. Meaningful Use Info Meaningful Use Meaningful Use Diagnoses (Choose all that apply): None applicable Ischemic Stroke Statin Dosing Therapy Reference: STATIN DOSE THERAPY REFERENCE: * Patients > 75 years receive moderate or high dose statin therapy. * Patients 75 years or YOUNGER should receive HIGH intensity statin dose unless contraindicated. You will be required to document reason for non-treatment if statin daily dose does not meet guidelines. HIGH DOSE STATIN THERAPY DAILY Atorvastatin > than or = to 40 mg Rosuvastatin > than or = to 20 mg Amlodipine + Atorvastatin > than or = to 2.5/40 mg Ezetimibe + Simvastatin 10/80 mg Simvastatin 80mg Discharge Plan Admission Admit Date/Time: 08/28/24 16:20 Primary Reason for Your Visit: Debility. Attending Provider: Edmund Salter Chi Primary Care Provider: Juan Lr Instructions Additional Instructions / Restrictions: Discharge home alone 09/11/2024, [facility] PT/OT/SN, FWW, 3-in-1 commode. FWW: Patient is unsafe to use a cane and requires a walker for ambulation in the home and the community. 3-in-1 commode: Patient is confined to a single room unable to safely access toilet. Patient is confined to one level of the home environment and there is no toilet on that level. Discharge Orders/Prescriptions Prescriptions: New nicotine 14 mg/24 hr Patch 24 Hour 14 mg transdermal 2100 30 Days Qty: 30 0RF sennosides-docusate sodium [Stimulant Laxative Plus] 8.6-50 mg Tablet 2 tab PO BID PRN (Reason: Constipation) 30 Days Qty: 120 0RF acetaminophen 500 mg Tablet 1,000 mg PO Q8 Qty: 0 0RF aspirin 81 mg Tablet,Chewable 81 mg PO BID 14 Days Qty: 0 0RF oxycodone 5 mg Tablet 5 mg PO Q4H PRN PRN (Reason: Pain Score 4-10) 7 Days Qty: 42 0RF Continued lorazepam 1 MG tablet 1 mg PO Q8H PRN (Reason: Anxiety) cyclobenzaprine 10 mg tablet 10 mg PO TID PRN (Reason: muscle spasm) levothyroxine 88 mcg tablet 88 mcg PO DAILY metoprolol tartrate 50 mg tablet 50 mg PO BID albuterol sulfate 90 mcg/actuation HFA aerosol inhaler 2 puff inhalation Q4H PRN (Reason: wheezing) duloxetine 20 mg capsule,delayed release(DR/EC) 20 mg PO DAILY calcium carbonate-vitamin D3 [Oyster Shell Calcium-Vit D3] 500 mg-5 mcg (200 unit) Tablet 1 tab PO BIDCM Qty: 0 0RF Discontinued oxycodone 5 mg Tablet 10 mg PO Q4H PRN PRN (Reason: Pain Score 4-10) Qty: 0 0RF Xarelto 10 mg Tablet 10 mg PO DAILY@0600 14 Days Qty: 0 0RF Referrals / Follow Up: Juan rL DO [Primary Care Provider] - 09/19/24 2:40 pm (appt with Louisa Mott ) Disposition Disposition (needs filled in before D/C Order can be placed): Home Health Service
[2024-09-10 21:45] VITALS: BP 124/93; PULSE 93
[2024-09-10] MEDS: cycloBENZAPRine HCl 10 MG Tablet PO (21:51)
[2024-09-10 21:52] VITALS: BP 124/93; PULSE 93
[2024-09-10 21:59] VITALS: PULSE 91; RESP 16
[2024-09-11] MEDS: oxyCODONE 5 MG Tablet PO (02:45)
[2024-09-11] MEDS: MENTHOL 226.8 GM JAR 1 APPLIC TOPICAL (02:47)
[2024-09-11] MEDS: Acetaminophen 500 MG Tablet 1000 MG PO (06:08)
[2024-09-11] MEDS: Levothyroxine 88 MCG Tablet PO (06:08)
[2024-09-11 06:43] VITALS: RESP 16
[2024-09-11 07:24] VITALS: BP 113/70; PULSE 73; RESP 18; TEMP 36.4; O2SAT 98
[2024-09-11] MEDS: LORazepam 1 MG Tablet PO (07:26)
[2024-09-11] MEDS: Aspirin 81 MG TAB.CHEW PO (07:26)
[2024-09-11] MEDS: Calcium Carb/Vitamin D 1 TABLET Tablet PO (07:26)
[2024-09-11 07:27] VITALS: PULSE 73
[2024-09-11] MEDS: DULoxetine Hcl 20 MG Capsule PO (07:27)
[2024-09-11] MEDS: Metoprolol Tartrate 50 MG Tablet PO (07:27)
[2024-09-11] MEDS: Nystatin Powder 15gm Bottle 1 APPLIC TOPICAL (07:28)
[2024-09-11] MEDS: Menthol/Lanolin/Calamine/Znox 113 GM Tube 1 APPLIC TOPICAL (07:29)
== END 2024-09-11 11:50 | disposition home health service (06) | DRG 561 ==
PROVIDERS: Admitting Provider Family Medicine Geriatric Medicine; PCP Student in an Organized Health Care Education/Training Program; Referring Provider Family Medicine Geriatric Medicine; Visit Provider Family Medicine Geriatric Medicine
DX: S72.401D Unspecified fracture of lower end of right femur, subsequent encounter for closed fracture with routine healing (principal); B00.9 Herpesviral infection, unspecified; E03.9 Hypothyroidism, unspecified; F17.210 Nicotine dependence, cigarettes, uncomplicated; B35.4 Tinea corporis; J44.9 Chronic obstructive pulmonary disease, unspecified; I10 Essential (primary) hypertension; F32.9 Major depressive disorder, single episode, unspecified; E78.5 Hyperlipidemia, unspecified; M79.7 Fibromyalgia; M62.838 Other muscle spasm; M19.90 Unspecified osteoarthritis, unspecified site; F41.9 Anxiety disorder, unspecified; W01.0XXD Fall on same level from slipping, tripping and stumbling without subsequent striking against object, subsequent encounter; Z79.890 Hormone replacement therapy; Z79.899 Other long term (current) drug therapy
CPT/HCPCS: 36415; 36430; 80048; 82274; 83540; 83550; 85014; 85018; 85025; 86850; 86900; 86901; 97110; 97116; 97129; 97162; 97166; 97530; 97535; 99406; P9016; A4216; J1940

== ENCOUNTER 2024-09-02 11:26 | Day surgery (SDC) | payer MEDICARE, SELFPAY ==
--- NOTE | 2024-08-30 12:01 | PAT.ANE_ITS ---
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 When Was Last Pacemaker Check QUESTION #4 FULL TEXT: You/Your Family Experience fever (hyperthermia) with Anesthesia Last Oral Intake Last Oral intake: Last Oral Intake NPO since Meds taken in AM with sips of water? Meds patient instructed to take am of surgery PONV PONV - retail marketing executive: PONV - retail marketing executive Female Yes 08/30/24 09:58 HX of Motion Sickness No 08/30/24 09:58 HX of N/V After Surgery No 08/30/24 09:58 Non-Smoker No 08/30/24 09:58 Duration of Surgery greater No 08/30/24 09:58 than 60 minutes Number of Risk Factors 1 08/30/24 09:58 PONV Score Low Risk 08/30/24 09:58 Height & Weight Height & Weight: Anesthesia: Height & Weight Height 5 ft 5 in 08/29/24 13:18 Respiratory Assessment Respiratory Assessment - retail marketing executive: Respiratory Tract Infection Hx - retail marketing executive Hx Respiratory Tract Infection No 08/30/24 09:58 STOP Sleep Apnea STOP Sleep Apnea - retail marketing executive: STOP Sleep Apnea - retail marketing executive Hx Hypertension Yes: CONTROLLED ON MED 08/30/24 09:58 Hx Sleep Apnea No 08/30/24 09:58 CPAP BIPAP Do you snore loudly (louder No 08/30/24 09:58 than talking or can be heard Do you often feel tired/ No 08/30/24 09:58 fatigued/ sleepy during daytime? Has anyone observed you stop No 08/30/24 09:58 breathing during sleep? STOP Results Negative 08/30/24 09:58 QUESTION #5 FULL TEXT : Do you snore loudly (louder than talking or can be heard through closed doors)? Tobacco Use History Tobacco Use History - retail marketing executive: Tobacco Use History - retail marketing executive Tobacco Use Smoking Status Current every day smoker 08/30/24 09:58 Hx Tobacco Use Yes 08/30/24 09:58 Years Smoking Packs Smoked per Day Smoking Cessation Date was within the last 15 years Hx Smoking Cessation Date Hx Smoking Cessation Counseling Hematologic Medial History Hematologic Hx - retail marketing executive: Hematologic Medical Hx - documentation consultant Hx of Blood Transfusion Yes 08/30/24 09:58 Hx of Transfusion in last 3 Yes 08/30/24 09:58 Months Date of Last Transfusion (if [id number] 08/30/24 09:58 within last 3 months) Ever experience any problems No 08/30/24 09:58 with transfusion(s)? Specify any problems Hx of Preganancy in last 3 No 08/30/24 09:58 Months Nurse Filling Out Transfusion VCHRISTIN 08/30/24 09:58 & Questions: Date: 08/30/24 08/30/24 09:58 Time: 10:00 08/30/24 09:58 Patient unable to answer at this time (ie. confused, unrespo /Reproduction History /Reproductive History - retail marketing executive: /Reproductive Hx- retail marketing executive Hx Now No 08/30/24 09:58 Gestational Age (in weeks): EDC: Hx Hx Para Hx Section SAB No 08/30/24 09:58 [facility] Medical History (Updated 08/30/24 @ 09:58 by Jessica Wasserman) Wears dentures Wears glasses MRSA infection Post-menopausal Alcohol use Thyroid disease Kidney stones Anemia Back pain Injury of back Migraine headache Gastric reflux COPD (chronic obstructive pulmonary disease) History of stress test Anxiety and depression Osteoporosis Smoker Bone spur of foot Hypertension Arthritis Chronic low back pain Fibromyalgia Home Medications ?Medication ?Instructions ?Recorded ?Last Taken ?Type lorazepam 1 mg tablet 1 mg PO Q8H PRN Anxiety 11/0 /08/22/24 History albuterol sulfate 90 mcg/actuation 2 puff inhalation Q 4H PRN wheezing 08/23/24 08/22/24 History aerosol inhaler cyclobenzaprine 10 mg tablet 10 mg PO TID PRN muscle s pasm 08/23/24 08/22/24 History duloxetine 20 mg capsule,delayed 20 mg PO DAILY Mood 0 08/23/24 08/23/24 History release levothyroxine 88 mcg tablet 88 mcg PO DAILY Thyroid 08/22/24 History metoprolol tartrate 50 mg tablet 50 mg PO BID BP 08/2308/23/24 History calcium 500 mg (as 1 tab PO BIDCM Supplement #0 tabs 08/27/24 Unknown Rx carbonate)-vitamin D3 5 mcg (200 unit) tablet (Oyster Shell Calcium-Vitamin D3) oxycodone 5 mg tablet 10 mg (2 x 5 mg) PO Q4H PRN PRN 08/27/24 Unknown Rx Pain Score 4-10 #0 tabs rivaroxaban 10 mg tablet (Xarelto) 10 mg PO DAILY@0600 Blood Thinner 08/27/24 Unknown Rx 14 days #0 tabs Allergy/AdvReac Type Severity Reaction Status Date / Time pregabalin (From Lyrica) Allergy SUICIDAL Verified 08/30/24 09:50 pentazocine lactate (From AdvReac Vomiting Verified 08/30/24 09:50 Talena) Surgical History (Updated 08/30/24 @ 09:58 by Jessica Wasserman) History of nasal surgery History of bunionectomy Hx of foot surgery History of carpal tunnel repair History of hysterectomy Social History (Updated 08/28/24 @ 20:[address] Edmund Salter MD) household members: family and other details: Brother lives upstairs. Smoking Status: Current every day smoker tobacco type: cigarettes alcohol intake: never substance use type: does not use Audit: Pertinent Findings Pertinent Findings EKG Perinent findings: 08/23/2024. Normal sinus rhythm 63 bpm. Left axis deviation. Pulmonary function results/spirometer pertinent findings: Chest x-ray 08/23/2024. No acute cardiopulmonary process. Current Visit Impressions Current Visit Impressions: Hemoglobin 7.3 g/dL. 08/29/2024 lab. Surgeon is aware and this is one of the reasons for procedure. Recommendation Anesthesia Recommendation Anesthesia recommendation: OPTIMIZED for anesthesia
[2024-09-02] VITALS (8 sets, daily range): BP systolic 125–166; BP diastolic 69–79; PULSE 65–76; RESP 16–18; TEMP 36.2–36.6; O2SAT 96–100; BMI 33.3
[2024-09-02] MEDS: Lactated Ringers 1,000 ML 15 ML IV (11:46)
--- NOTE | 2024-09-02 13:24 | PCM.PRE.AN2 ---
ASA Classification* ASA Classification ASA Classification: 3 (COPD, smoker, HTN, hypothyroidism ) Assessment & Plan Anesthesia* Anesthesia Assessment Anesthesia Assessment: Discussed sedation and/or anesthesia options, risks, benefits, and alternatives with patient/parents/legal guardian/POA. Questions invited. The patient/parents/legal guardian/POA seems to understand and agrees to proceed with anesthesia plan. Reviewed the physical assessment, medical history, allergy history and patient home medications list prior to surgery/procedure/anesthetic and documented any changes. Performed airway and anesthesia risk assessments. Anesthesia Type Anesthesia Type: General History Source History Obtained from:: Patient and Chart Anesthesia Focused Assessment* Temperature: 97.9 F Pulse Rate: 65 Blood Pressure: 146/78 Respiratory Rate: 16 Pulse Ox: 100 Oxygen Delivery Method: Room Air Airway Assessment Mouth opens: >3 cm Mallampati Score: II Teeth Condition: Intact Neck Range of motion (ROM): Full ROM Focused Labs Anesthesia Preop lab: CBC WBC 8.5 K/mm3 (4.4-11.0) 09/01/24 11:09/01/24 RBC 4.11 M/mm3 (4.2-5.4) L 09/01/24 11:09/01/24 Hgb 11.7 g/dL (12.0-15.0) L 09/01/24 11:09/01/24 Hct 35.3 % (37-47) L 09/01/24 11:09/01/24 Plt Count 530 K/mm3 (150-450) H 09/01/24 11:25 09/01/24 CHEMISTRY Potassium 3.8 mmol/L (3.3-5.1) 09/01/24 11:25 09/01/24 Sodium 136 mmol/L (133-145) 09/01/24 11:09/01/24 BUN 23 mg/dL (4-19) H 09/01/24 11:09/01/24 Creatinine 1.04 mg/dL (0.70-1.20) 09/01/24 11:09/01/24 Glucose 92 mg/dL (70-99) 09/01/24 11:25 09/01/24 COAG PT 13.1 SECONDS (11.7-14.9) 10/06/17 23:59 10/06/17 Pre-Assessment Diagnosis/Proposed Procedure Planned Operative Procedure(s): EGD Anesthesia History 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 When Was Last Pacemaker Check QUESTION #4 FULL TEXT: You/Your Family Experience fever (hyperthermia) with Anesthesia Last Oral Intake Last Oral intake: Last Oral Intake NPO since 00:00 09/02/24 11:40 Meds taken in AM with sips of Yes 09/02/24 11:40 water? Meds patient instructed to METOPROLOL 09/02/24 11:40 take am of surgery LEVOTHYROXINE PONV PONV - composition weatherboard installer: PONV - composition weatherboard installer Female Yes 08/30/24 09:58 HX of Motion Sickness No 08/30/24 09:58 HX of N/V After Surgery No 08/30/24 09:58 Non-Smoker No 08/30/24 09:58 Duration of Surgery greater No 08/30/24 09:58 than 60 minutes Number of Risk Factors 1 08/30/24 09:58 PONV Score Low Risk 08/30/24 09:58 Height & Weight Height & Weight: Anesthesia: Height & Weight Height 5 ft 5 in 09/02/24 11:40 Weight: 90.7 kg 09/02/24 11:40 Body Mass Index (BMI) 33.3 09/02/24 11:40 Respiratory Assessment Respiratory Assessment - composition weatherboard installer: Respiratory Tract Infection Hx - composition weatherboard installer Hx Respiratory Tract Infection No 08/30/24 09:58 STOP Sleep Apnea STOP Sleep Apnea - composition weatherboard installer: STOP Sleep Apnea - composition weatherboard installer Hx Hypertension Yes: CONTROLLED ON MED 08/30/24 09:58 Hx Sleep Apnea No 08/30/24 09:58 CPAP BIPAP Do you snore loudly (louder No 08/30/24 09:58 than talking or can be heard Do you often feel tired/ No 08/30/24 09:58 fatigued/ sleepy during daytime? Has anyone observed you stop No 08/30/24 09:58 breathing during sleep? STOP Results Negative 08/30/24 09:58 QUESTION #5 FULL TEXT : Do you snore loudly (louder than talking or can be heard through closed doors)? Tobacco Use History Tobacco Use History - composition weatherboard installer: Tobacco Use History - composition weatherboard installer Tobacco Use Smoking Status Current every day smoker 08/30/24 09:58 Hx Tobacco Use Yes 08/30/24 09:58 Years Smoking Packs Smoked per Day Smoking Cessation Date was within the last 15 years Hx Smoking Cessation Date Hx Smoking Cessation Counseling Hematologic Medial History Hematologic Hx - composition weatherboard installer: Hematologic Medical Hx - furniture mover Hx of Blood Transfusion Yes 08/30/24 09:58 Hx of Transfusion in last 3 Yes 08/30/24 09:58 Months Date of Last Transfusion (if [id number] 08/30/24 09:58 within last 3 months) Ever experience any problems No 08/30/24 09:58 with transfusion(s)? Specify any problems Hx of Preganancy in last 3 No 08/30/24 09:58 Months Nurse Filling Out Transfusion VCHRISTIN 08/30/24 09:58 & Questions: Date: 08/30/24 08/30/24 09:58 Time: 10:00 08/30/24 09:58 Patient unable to answer at this time (ie. confused, unrespo /Reproduction History /Reproductive History - composition weatherboard installer: /Reproductive Hx- composition weatherboard installer Hx Now No 08/30/24 09:58 Gestational Age (in weeks): EDC: Hx Hx Para Hx Section SAB No 08/30/24 09:58 Active Medications Active Medications: Current Medications Generic Name Dose Route Start Last Admin Trade Name Freq PRN Reason Stop Dose Admin Lactated Ringer's 1,000 mls @ 15 mls/hr 09/02/24 11:30 09/02/24 11:46 IV 15 mls/hr .Q48H ISIAH Administration PFSH Medical History (Updated 08/30/24 @ 09:58 by Jessica Wasserman) Wears dentures Wears glasses MRSA infection Post-menopausal Alcohol use Thyroid disease Kidney stones Anemia Back pain Injury of back Migraine headache Gastric reflux COPD (chronic obstructive pulmonary disease) History of stress test Anxiety and depression Osteoporosis Smoker Bone spur of foot Hypertension Arthritis Chronic low back pain Fibromyalgia Home Medications ?Medication ?Instructions ?Recorded ?Last Taken ?Type lorazepam 1 mg tablet 1 mg PO Q8H PRN Anxiety 03/05/18 08/22/24 History albuterol sulfate 90 mcg/actuation 2 puff inhalation Q4H PRN wheezing 08/23/24 08/22/24 History aerosol inhaler cyclobenzaprine 10 mg tablet 10 mg PO TID PRN muscle spasm 08/23/24 08/22/24 History duloxetine 20 mg capsule,delayed 20 mg PO DAILY Mood 08/23/24 08/23/24 History release levothyroxine 88 mcg tablet 88 mcg PO DAILY Thyroid 08/23/24 09/02/24 History metoprolol tartrate 50 mg tablet 50 mg PO BID BP 08/23/24 09/02/24 History calcium 500 mg (as 1 tab PO BIDCM Supplement #0 tabs 08/27/24 Unknown Rx carbonate)-vitamin D3 5 mcg (200 unit) tablet (Oyster Shell Calcium-Vitamin D3) oxycodone 5 mg tablet 10 mg (2 x 5 mg) PO Q4H PRN PRN 08/27/24 09/02/24 Rx Pain Score 4-10 #0 tabs rivaroxaban 10 mg tablet (Xarelto) 10 mg PO DAILY@0600 Blood Thinner 08/27/24 08/31/24 Rx 14 days #0 tabs Allergy/AdvReac Type Severity Reaction Status Date / Time pregabalin (From Lyrica) Allergy SUICIDAL Verified 09/02/24 11:32 pentazocine lactate (From AdvReac Vomiting Verified 09/02/24 11:32 Celso) Surgical History (Updated 08/30/24 @ 09:58 by Jessica Wasserman) History of nasal surgery History of bunionectomy Hx of foot surgery History of carpal tunnel repair History of hysterectomy Social History (Updated 08/28/24 @ 20:[address] Edmund Salter MD) household members: family and other details: Brother lives upstairs. Smoking Status: Current every day smoker tobacco type: cigarettes alcohol intake: never substance use type: does not use Review of Systems (Anesthesia) ROS Narrative System reviewed and no additional complaints, except as documented. Physical Exam Const alert, oriented x3 and average body habitus Resp normal respiratory effort, normal air movement and clear to auscultation bilaterally Cardio regular rate, regular rhythm, no murmurs and diaphoretic
--- NOTE | 2024-09-02 13:54 | PCM.HP.STD ---
HPI - General General Date of Admission: 09/02/24 Date of Service: 09/02/24 Chief Complaint: Anemia HPI Narrative ALAN CM, is a 69 F who presentsDate of Admission: 08/28/24 Date of Service: 09/02/24 Chief Complaint: Anemia HPI Cinthia CM, is a 69-year-old female who presented to [facility] ED on 08/23/24 with right hip pain after a fall at home. S/p ORIF with intramedullary nail placement on 08/24. Patient discharged to SNF at [facility] in stable condition on 08/27. Her hemoglobin 10.3 on admit, dropped to 7.5 postoperatively. Her hemoglobin has been persistently down and she was Hemoccult positive stool in the setting of anticoagulation. [facility] Medical History (Updated 09/02/24 @ 13:[address] Pope Friend, DO) Wears dentures Wears glasses MRSA infection Post-menopausal Alcohol use Thyroid disease Kidney stones Anemia Back pain Injury of back Migraine headache Gastric reflux COPD (chronic obstructive pulmonary disease) History of stress test Anxiety and depression Osteoporosis Smoker Bone spur of foot Hypertension Arthritis Chronic low back pain Fibromyalgia Home Medications ?Medication ?Instructions ?Recorded ?Last Taken ?Type lorazepam 1 mg tablet 1 mg PO Q8H PRN Anxiety 03/05/18 08/22/24 History albuterol sulfate 90 mcg/actuation 2 puff inhalation Q4H PRN wheezing 08/23/24 08/22/24 History aerosol inhaler cyclobenzaprine 10 mg tablet 10 mg PO TID PRN muscle spasm 08/23/24 08/22/24 History duloxetine 20 mg capsule,delayed 20 mg PO DAILY Mood 08/23/24 08/23/24 History release levothyroxine 88 mcg tablet 88 mcg PO DAILY Thyroid 08/23/24 09/02/24 History metoprolol tartrate 50 mg tablet 50 mg PO BID BP 08/23/24 09/02/24 History calcium 500 mg (as 1 tab PO BIDCM Supplement #0 tabs 08/27/24 Unknown Rx carbonate)-vitamin D3 5 mcg (200 unit) tablet (Oyster Shell Calcium-Vitamin D3) oxycodone 5 mg tablet 10 mg (2 x 5 mg) PO Q4H PRN PRN 08/27/24 09/02/24 Rx Pain Score 4-10 #0 tabs rivaroxaban 10 mg tablet (Xarelto) 10 mg PO DAILY@0600 Blood Thinner 08/27/24 08/31/24 Rx 14 days #0 tabs Allergy/AdvReac Type Severity Reaction Status Date / Time pregabalin (From Lyrica) Allergy SUICIDAL Verified 09/02/24 11:32 pentazocine lactate (From AdvReac Vomiting Verified 09/02/24 11:32 Celso) Surgical History History of nasal surgery History of bunionectomy Hx of foot surgery History of carpal tunnel repair History of hysterectomy Social History household members: family and other details: Brother lives upstairs. Smoking Status: Current every day smoker tobacco type: cigarettes alcohol intake: never substance use type: does not use ROS Constitutional Constitutional: Denies fatigue, fever(s), poor appetite, weight gain or weight loss Gastrointestinal Gastrointestinal: Denies belching, bloating, change in bowel habits, change in stool character, chewing difficulty, coffee ground emesis, constipation, cramping, diarrhea, dyspepsia, dysphagia, early satiety, excessive flatus, fecal incontinence, heartburn, hematemesis, hematochezia, hemorrhoids, loose stools, melena, nausea, odynophagia, rectal bleeding, tenesmus, vomiting or weight changes Vital Signs Vital Signs Vital Signs: 09/01/2520:24 09/01/2520:37 09/02/2508:21 Temperature 97.3 F L Temperature Source Temporal Pulse Rate 89 89 77 Respiratory Rate 16 Blood Pressure 140/84 H 140/84 H 139/79 H Blood Pressure Mean 102 99 Blood Pressure Source Monitor Monitor Blood Pressure Position Semi-Fowlers Sitting Blood Pressure Location Left Arm Right Arm Pulse Ox 97 Oxygen Delivery Method Room Air 09/02/2508:23 09/02/2508:27 Temperature 97.3 F L Temperature Source Temporal Pulse Rate 77 77 Respiratory Rate 16 Blood Pressure 139/79 H Blood Pressure Mean 99 Blood Pressure Source Monitor Blood Pressure Position Sitting Blood Pressure Location Right Arm Pulse Ox 97 Oxygen Delivery Method Room Air Weight Weight: 199 lb 14.396 oz Body Mass Index (BMI) 33.3 Physical Exam Const alert, oriented x3, no apparent distress and healthy appearing General Appearance: cooperative GI normal to inspection, nondistended, normoactive bowel sounds, soft to palpation, non-tender and non-distended Percussion: normal to percussion Rectal Exam: deferred Results Lab / Micro Data 09/01/24 11:25 09/01/24 11:25 Assessment & Plan Assessment/Plan (1) Hypothyroidism: (2) Tobacco abuse: (3) Anemia: PLAN: Plan 69 year old female with below past medical history hospitalized for fall, right distal femur fracture, underwent ORIF on 08/24/2024 acute blood loss anemia currently on Xarelto. She will undergo endoscopic evaluation. She was explained alternatives, risk and benefits include not withstanding bleeding, infection, sepsis, perforation, need for charge and . She will have an ASA of 3. [facility] Medical History (Updated 09/02/24 @ 13:[address] Pope Friend, DO) Wears dentures Wears glasses MRSA infection Post-menopausal Alcohol use Thyroid disease Kidney stones Anemia Back pain Injury of back Migraine headache Gastric reflux COPD (chronic obstructive pulmonary disease) History of stress test Anxiety and depression Osteoporosis Smoker Bone spur of foot Hypertension Arthritis Chronic low back pain Fibromyalgia Home Medications ?Medication ?Instructions ?Recorded ?Last Taken ?Type lorazepam 1 mg tablet 1 mg PO Q8H PRN Anxiety 03/05/18 08/22/24 History albuterol sulfate 90 mcg/actuation 2 puff inhalation Q4H PRN wheezing 08/23/24 08/22/24 History aerosol inhaler cyclobenzaprine 10 mg tablet 10 mg PO TID PRN muscle spasm 08/23/24 08/22/24 History duloxetine 20 mg capsule,delayed 20 mg PO DAILY Mood 08/23/24 08/23/24 History release levothyroxine 88 mcg tablet 88 mcg PO DAILY Thyroid 08/23/24 09/02/24 History metoprolol tartrate 50 mg tablet 50 mg PO BID BP 08/23/24 09/02/24 History calcium 500 mg (as 1 tab PO BIDCM Supplement #0 tabs 08/27/24 Unknown Rx carbonate)-vitamin D3 5 mcg (200 unit) tablet (Oyster Shell Calcium-Vitamin D3) oxycodone 5 mg tablet 10 mg (2 x 5 mg) PO Q4H PRN PRN 08/27/24 09/02/24 Rx Pain Score 4-10 #0 tabs rivaroxaban 10 mg tablet (Xarelto) 10 mg PO DAILY@0600 Blood Thinner 08/27/24 08/31/24 Rx 14 days #0 tabs Allergy/AdvReac Type Severity Reaction Status Date / Time pregabalin (From Lyrica) Allergy SUICIDAL Verified 09/02/24 11:32 pentazocine lactate (From AdvReac Vomiting Verified 09/02/24 11:32 Celso) Surgical History History of nasal surgery History of bunionectomy Hx of foot surgery History of carpal tunnel repair History of hysterectomy Social History household members: family and other details: Brother lives upstairs. Smoking Status: Current every day smoker tobacco type: cigarettes alcohol intake: never substance use type: does not use Vital Signs Vital Signs Vital Signs: 09/02/24 11:40 09/02/24 11:40 09/02/24 13:25 Temperature 97.9 F 97.9 F Temperature Source Temporal Pulse Rate 65 65 Respiratory Rate 16 16 Respiratory Pattern Normal Blood Pressure 146/78 H 146/78 H Blood Pressure Mean 100 Blood Pressure Source Monitor Pulse Ox 100 100 Oxygen Delivery Method Room Air Room Air Weight Weight: 199 lb 15.348 oz Body Mass Index (BMI) 33.3
--- NOTE | 2024-09-02 14:16 | OP.CCLET_ITS ---
09/02/2024 [address] [place] [address] Re : Upper GI endoscopy procedure for Nicole Ridleyer Dear Dr. Lr This procedure was performed on Monday, September 02, 2024. My impressions and recommendations are as follows: Impressions : - Normal esophagus. - No gross lesions in the entire stomach. - No gross lesions in the entire examined duodenum. - No specimens collected. Recommendations : - Discharge patient to home. - Resume previous diet. - Continue present medications. My findings are described in the full procedure note, which is enclosed. If I can be of further assistance, please feel free to contact me at . Sincerely, Niko Cox, 09/02/2024 2:15:53 PM This report has been signed electronically.
--- NOTE | 2024-09-02 14:16 | OP.EGD_ITS ---
Patient Name: Nicole Stovall Procedure Date: 09/02/2024 1:58 PM Date of : 1955 Age: 69 Procedure: Upper GI endoscopy Indications: Acute post hemorrhagic anemia, Iron deficiency anemia, Heme positive stool Providers: Niko Cox DO Medicines: Monitored Anesthesia Care Patient Profile: This is a 69 year old female. Refer to note in patient chart for documentation of history and physical. Patient has symptoms. Complications: No immediate complications. Procedure: Pre-Anesthesia Assessment: - Prior to the procedure, a History and Physical was performed, and patient medications and allergies were reviewed. The patient is competent. The risks and benefits of the procedure and the sedation options and risks were discussed with the patient. All questions were answered and informed consent was obtained. Patient identification and proposed procedure were verified by the physician in the pre-procedure area. Mental Status Examination: alert and oriented. Airway Examination: normal oropharyngeal airway and neck mobility. Respiratory Examination: clear to auscultation. CV Examination: normal. Prophylactic Antibiotics: The patient does not require prophylactic antibiotics. Prior Anticoagulants: The patient has taken no anticoagulant or antiplatelet agents except for NSAID medication. ASA Grade Assessment: II - A patient with mild systemic disease. After reviewing the risks and benefits, the patient was deemed in satisfactory condition to undergo the procedure. The anesthesia plan was to use monitored anesthesia care (MAC). Immediately prior to administration of medications, the patient was re-assessed for adequacy to receive sedatives. The heart rate, respiratory rate, oxygen saturations, blood pressure, adequacy of pulmonary ventilation, and response to care were monitored throughout the procedure. The physical status of the patient was re-assessed after the procedure. After obtaining informed consent, the endoscope was passed under direct vision. Throughout the procedure, the patient's blood pressure, pulse, and oxygen saturations were monitored continuously. The Endoscope was introduced through the mouth, and advanced to the third part of the duodenum. Small bowel enteroscopy was deemed necessary. The upper GI endoscopy was accomplished without difficulty. The patient tolerated the procedure well. Scope In: 2:07:23 PM Scope Out: 2:10:55 PM Total Procedure Duration Time 0 hours 3 minutes 32 seconds Findings: The examined esophagus was normal. No gross lesions were noted in the entire examined stomach. No gross lesions were noted in the entire examined duodenum. Impression: - Normal esophagus. - No gross lesions in the entire stomach. - No gross lesions in the entire examined duodenum. - No specimens collected. Recommendation: - Discharge patient to home. - Resume previous diet. - Continue present medications. Procedure Code(s): --- Professional --- 64366, Small intestinal endoscopy, enteroscopy beyond second portion of duodenum, not including ileum; diagnostic, including collection of specimen(s) by brushing or washing, when performed (separate procedure) CPT copyright 2021 [employer]. All rights reserved. The codes documented in this report are preliminary and upon virtual recruiter review may be revised to meet current compliance requirements. Niko Cox DO 09/02/2024 2:15:53 PM This report has been signed electronically. Number of Addenda: 0 Note Initiated On: 09/02/2024 1:58 PM
--- NOTE | 2024-09-02 14:25 | PCM.POST.ANE ---
Anesthesia: Postop Eval I Current Vital Signs Temperature: 97.2 F Pulse Rate: 71 Blood Pressure: 125/79 Respiratory Rate: 16 Pulse Ox: 97 Oxygen Delivery Method: Room Air Assessment Airway patent: Yes Spontaneous unlabored respirations: Yes Mental status: Awake and Calm nausea: No Vomiting: No Anesthesia Complication: No Fluid Hydration Crystalloid volume administer (ml): 200 Total IV fluid infused: 200 Progress Note Anesthesia document: Postop Eval 1 completed: Yes
--- NOTE | 2024-09-02 14:28 | PCM.POSTANE2 ---
Anesthesia Postop Eval I Sum Postop Eval Completion status Anesthesia document: Postop Eval 1 completed: Yes Anesthesia Postop Eval I Summary Anesthesia Postop Eval I Summary: Anesthesia Postop Eval I: Assessment Summary Airway patent Yes 09/02/24 14:26 [email or web address] Spontaneous unlabored Yes 09/02/24 14:26 [email or web address] respirations Mental status Awake,Calm 09/02/24 14:26 [email or web address] nausea No 09/02/24 14:26 [email or web address] Vomiting No 09/02/24 14:26 [email or web address] Anesthesia Postop Eval I: Fluid Summary Crystalloid volume administer 200 09/02/24 14:26 [email or web address] (ml) Colloids volume administered ( ml) Blood Product volume administered (ml) Total IV fluid infused 200 09/02/24 14:26 [email or web address] Anesthesia Postop Eval I: Summary Notes Anesthesia Complication No 09/02/24 14:26 [email or web address] Anesthesia Complication Comment: Post-operative progress note Anesthesia: Postop Eval II Evaluation Mental status: Awake Pain Level: 0 nausea: No Vomiting: No Complications Anesthesia Complication: No
== END 2024-09-02 14:58 | disposition home or self-care (01) ==
LOC: EN 11:27 → AC 11:27
PROVIDERS: PCP Student in an Organized Health Care Education/Training Program; Referring Provider Student in an Organized Health Care Education/Training Program; Visit Provider Internal Medicine Gastroenterology
PROC: 0DJ08ZZ Inspection of Upper Intestinal Tract, Via Natural or Artificial Opening Endoscopic (ICD-10-PCS; CPT 43235; principal; 2024-09-02 13:40)
DX: D64.9 Anemia, unspecified (principal); J44.9 Chronic obstructive pulmonary disease, unspecified; R19.5 Other fecal abnormalities; E03.9 Hypothyroidism, unspecified; I10 Essential (primary) hypertension; E07.9 Disorder of thyroid, unspecified; M79.7 Fibromyalgia; F17.210 Nicotine dependence, cigarettes, uncomplicated; Z79.01 Long term (current) use of anticoagulants; Z79.890 Hormone replacement therapy; Z79.899 Other long term (current) drug therapy
CPT/HCPCS: 44360; J2405